=== PATIENT | female | born 1950 | race Caucasian/White ===

== ENCOUNTER 2017-12-30 12:56 | Emergency (ER) | payer OTHER ==
[2017-12-30] MEDS ORDERED: BUPIVACAINE 0.5% PF 10 ML VIAL ONE (14:48)
[2017-12-30] MEDS ORDERED: LIDOCAINE 1% MPF 2 ML AMPULE ONE (14:48)
--- NOTE | 2017-12-30 15:13 | ER ---
Nurse's Notes [facility] Name: Shree Rothman Age: 67 yrs Sex: Female : 1950 Arrival Date: 12/30/2017 Time: 12:59 Bed 6 Private MD: Ramon Case Diagnosis: Cutaneous abscess of hand- - left thumb Presentation: 12/30 13:04 Presenting complaint: Patient states: Left thumb swelling, developed a blister on the sg tip of the thumb under the thumbnail, is blackened that is getting larger. Transition of care: patient was not received from another setting of care. Onset of symptoms was December 18, 2017. Risk Assessment: Do you want to hurt yourself or someone else? Patient reports no desire to harm self or others. Initial Sepsis Screen: Does the patient meet any 2 criteria? No. Patient's initial sepsis screen is negative. Does the patient have a suspected source of infection? Yes: Skin breakdown/wound. Care prior to arrival: None. 13:04 Method Of Arrival: Ambulatory sg 13:04 Acuity: DANYEL 3 sg Historical: - Allergies: 13:13 No Known Allergies; sg - PMHx: 13:13 chrons; sg - PSHx: 13:13 Appendectomy; sg - Immunization history:: Adult Immunizations up to date. - Social history:: Smoking status: Patient/guardian denies using tobacco. - Ebola Screening: : Patient negative for fever greater than or equal to 101.5 degrees Fahrenheit, and additional compatible Ebola Virus Disease symptoms Patient denies exposure to infectious person Patient denies travel to an Ebola-affected area in the 21 days before illness onset No symptoms or risks identified at this time. Screenin:49 Abuse screen: Denies threats or abuse. Nutritional screening: No deficits noted. la1 Tuberculosis screening: No symptoms or risk factors identified. Fall Risk None identified. Assessment: 13:47 General: Appears in no apparent distress. Behavior is calm, cooperative. Pain: la1 Complains of pain in left thumb and palmar aspect of distal phalanx of left thumb. Neuro: Level of Consciousness is awake, alert, obeys commands, Oriented to person, place, time, situation. Cardiovascular: Capillary refill < 3 seconds Patient's skin is warm and dry. Respiratory: Airway is patent Trachea midline Respiratory effort is even, unlabored, Respiratory pattern is regular, symmetrical, Breath sounds are clear bilaterally. GI: No signs and/or symptoms were reported involving the gastrointestinal system. : No signs and/or symptoms were reported regarding the genitourinary system. Derm: redness noted around base of left thumb nail, tip of left thumb past fingernail appears dark red/brown. Vital Signs: 13:04 BP 130 / 63; Pulse 86; Resp 17; Temp 97.7; Pulse Ox 100% on R/A; Weight 58.97 kg; sg Height 5 ft. 1 in. (154.94 cm); Pain 6/10; 15:21 BP 140 / 74; Pulse 81; Resp 16; Pulse Ox 98% on R/A; la1 13:04 Body Mass Index 24.56 (58.97 kg, 154.94 cm) ED Course: 12:59 Patient arrived in ED. mr 13:00 Ramon Case MD is Private Physician. mr 13:05 Triage completed. sg 13:05 Arm band placed on. sg 13:35 Eder Black RN is Primary Nurse. la1 13:39 Merline Pal NP is PHCP. rh1 13:39 Win Kemp MD is Attending Physician. rh1 13:49 Call light in reach. la1 15:11 Ramon aCse MD is Referral Physician. rh1 15:12 Juan Grubbs MD is Referral Physician. rh1 15:21 No provider procedures requiring assistance completed. Patient did not have IV access la1 during this emergency room visit. Administered Medications: 14:46 Drug: Lidocaine (1 %) 1 vials Volume: 20 ml; Route: Infiltration; la1 14:46 Drug: Marcaine (0.25 %) 1 vials Route: Infiltration; la1 15:10 Drug: Ancef 1 grams Route: IM; Site: right gluteus; la1 15:22 Follow up: Response: No adverse reaction la1 Outcome: 15:12 Discharge ordered by . rh1 15:21 Discharged to home ambulatory. la1 15:21 Condition: stable 15:21 Discharge instructions given to patient, Instructed on discharge instructions, follow up and referral plans. medication usage, Demonstrated understanding of instructions, follow-up care, medications, Prescriptions given X 1. 15:26 Patient left the ED. la1 Signatures: Washington Jain RN RN Karl Bettina mr Ivorykanchan, Eder, RN RN la1 Demarco, Merline, SENIOR BOILER OPERATOR SENIOR BOILER OPERATOR 1
--- NOTE | 2017-12-30 15:13 | EDPHYS ---
Physician Documentation [facility] Name: Shree Rothman Age: 67 yrs Sex: Female : 1950 Arrival Date: 12/30/2017 Time: 12:59 Bed 6 Private MD: Ramon Case ED Physician Win Kemp HPI: 12/30 13:58 This 67 yrs old Female presents to ER via Ambulatory with complaints of rh1 Infected thumb. 13:58 The patient or guardian reports pain, swelling. The complaints affect the palmar aspect rh1 of distal phalanx of left thumb. Context: The problem was sustained at home, resulted from an unknown cause. Onset: The symptoms/episode began/occurred 1 week(s) ago. Modifying factors: The symptoms are alleviated by nothing, the symptoms are aggravated by nothing. Associated signs and symptoms: Pertinent negatives: cyanosis distally, decreased sensation distally, fever, numbness distally, tingling distally. Severity of symptoms: At their worst the symptoms were moderate, in the emergency department the symptoms are unchanged. The patient has not experienced similar symptoms in the past. The patient has been recently seen by a physician: the patient's primary care provider. She began with pinpoint white spot at skin under left thumbnail 1 week ago, that has gradually increased in size. Today with increased redness at the base of the nail. She has been taking keflex for the past 1 week. Denies any paresthesias, no fever.. Historical: - Allergies: 13:13 No Known Allergies; sg - PMHx: 13:13 chrons; sg - PSHx: 13:13 Appendectomy; sg - Immunization history:: Adult Immunizations up to date. - Social history:: Smoking status: Patient/guardian denies using tobacco. - Ebola Screening: : Patient negative for fever greater than or equal to 101.5 degrees Fahrenheit, and additional compatible Ebola Virus Disease symptoms Patient denies exposure to infectious person Patient denies travel to an Ebola-affected area in the 21 days before illness onset No symptoms or risks identified at this time. ROS: 13:58 Constitutional: Negative for fever rh1 13:58 MS/extremity: Negative for decreased range of motion. 13:58 Skin: Positive for abscess, cellulitis. 13:58 Neuro: Negative for numbness, tingling. 13:58 All other systems are negative. Exam: 13:58 Constitutional: This is a well developed, well nourished patient who is awake, alert, rh1 and in no acute distress. Head/Face: Normocephalic, atraumatic. Cardiovascular: Regular rate and rhythm with a normal S1 and S2. No gallops, murmurs, or rubs. No JVD. No pulse deficits. Respiratory: Lungs have equal breath sounds bilaterally, clear to auscultation. No rales, rhonchi or wheezes noted. No increased work of breathing. Abdomen/GI: Soft, non-tender, with normal bowel sounds. No distension. No guarding or rebound. No evidence of tenderness throughout. MS/ Extremity: Pulses equal, no cyanosis. Neurovascular intact. Full, normal range of motion. 13:58 Skin: abscess, that is small, approximately 1 cm(s), of the palmar aspect of distal phalanx of left thumb, with fluctuance, that is mild, with pointing, that is subtle, cellulitis, that is mild. 13:58 Skin: cap refill at left thumb <2 seconds. 13:58 Neuro: Orientation: is normal, to person, place \T\ time. Mentation: is normal, lucid, able to follow commands, Motor: is normal, moves all fours, strength is 5/5 in all extremities, full ROM at left thumb, Sensation: is normal, no obvious gross deficits, numbness, is not appreciated, tingling, is not appreciated, Gait: is steady, at a normal pace, without difficulty. Vital Signs: 13:04 BP 130 / 63; Pulse 86; Resp 17; Temp 97.7; Pulse Ox 100% on R/A; Weight 58.97 kg; sg Height 5 ft. 1 in. (154.94 cm); Pain 6/10; 15:21 BP 140 / 74; Pulse 81; Resp 16; Pulse Ox 98% on R/A; la1 13:04 Body Mass Index 24.56 (58.97 kg, 154.94 cm) Procedures: 15:10 I \T\ D: Incision and drainage was performed for an abscess of the left palmar aspect of rh1 distal phalanx of left thumb Prepped with Betadine, Anesthetized with 2 ml's 1% Lidocaine. marcaine. Incised with #11 blade. Drained moderate amount purulent fluid. Packed with sterile gauze, Dressing: non-Adherent dressing, the patient tolerated the procedure well. MDM: 13:58 Patient medically screened. rh1 15:10 Data reviewed: vital signs, nurses notes, and as a result, I will discharge patient. rh1 Data interpreted: Pulse oximetry: on room air is 100 %. Interpretation: normal. Counseling: I had a detailed discussion with the patient and/or guardian regarding: the historical points, exam findings, and any diagnostic results supporting the discharge/admit diagnosis, the need for outpatient follow up, a hand specialist, to return to the emergency department if symptoms worsen or persist or if there are any questions or concerns that arise at home. Special discussion: Based on the history and exam findings, there is no indication for further emergent testing or inpatient evaluation. I discussed with the patient/guardian the need to see the hand specialist for further evaluation of the symptoms. 12/30 14:21 Order name: Incision \T\ Drainage Setup; Complete Time: 14:46 rh1 Administered Medications: 14:46 Drug: Lidocaine (1 %) 1 vials Volume: 20 ml; Route: Infiltration; la1 14:46 Drug: Marcaine (0.25 %) 1 vials Route: Infiltration; la1 15:10 Drug: Ancef 1 grams Route: IM; Site: right gluteus; la1 15:22 Follow up: Response: No adverse reaction la1 Disposition: 18:35 Co-signature as Attending Physician, Win Kemp MD. gs Disposition: 12/30/17 15:12 Discharged to Home. Impression: Cutaneous abscess of hand - - left thumb. - Condition is Stable. - Discharge Instructions: Incision and Drainage. - Prescriptions for Bactrim DS 800- 160 mg Oral Tablet - take 1 tablet by ORAL route every 12 hours for 10 days; 20 tablet. - Medication Reconciliation Form, Thank You Letter, Antibiotic Education, Prescription Opioid Use form. - Follow up: Ramon Case MD; When: 1 - 2 days; Reason: Recheck today's complaints, Continuance of care, Re-evaluation by your physician. Follow up: Juan Grubbs MD; When: 1 - 2 days; Reason: Further diagnostic work-up, Recheck today's complaints, Continuance of care. Follow up: Emergency Department; When: As needed; Reason: Fever > 102 F, If symptoms return, Trouble breathing, Worsening of condition. - Problem is new. - Symptoms have improved. Signatures: Washington Jain RN RN sg Eder Black RN RN la1 Merline Pal NP CUSTODIAL SUPERVISOR rh1 Win Kemp MD MD gs Corrections: (The following items were deleted from the chart) 15:26 15:12 12/30/2017 15:12 Discharged to Home. Impression: Cutaneous abscess of hand - - la1 left thumb. Condition is Stable. Forms are Medication Reconciliation Form, Thank You Letter, Antibiotic Education, Prescription Opioid Use. Follow up: Ramon Case; When: 1 - 2 days; Reason: Recheck today's complaints, Continuance of care, Re-evaluation by your physician. Follow up: Juan Grubbs; When: 1 - 2 days; Reason: Further diagnostic work-up, Recheck today's complaints, Continuance of care. Follow up: Emergency Department; When: As needed; Reason: Fever > 102 F, If symptoms return, Trouble breathing, Worsening of condition. Problem is new. Symptoms have improved. rh1
[2017-12-30] MEDS ORDERED: CEFAZOLIN SODIUM 1 GM/VIAL ONE (15:15)
[2017-12-30] MEDS ORDERED: WATER FOR INJ,STERILE 10 ML ONE (15:15)
[2017-12-30 15:46] VITALS: TEMP 97.7
[2017-12-30 15:47] VITALS: BP 140/74; O2SAT 98
== END 2017-12-30 15:26 | disposition home or self-care (01) ==
LOC: ER 12:56
PROC: 0H9GXZZ Drainage of Left Hand Skin, External Approach (ICD-10-PCS; principal; 2017-12-30)
DX: L02.512 Cutaneous abscess of left hand (principal)
CPT/HCPCS: 26010; 96372; 99283; J0690; J2001

== ENCOUNTER 2018-01-03 09:31 | Day surgery (SDC) | payer OTHER ==
[2018-01-03] MEDS ORDERED: Ringers Lactate 1,000 ML IV ONE (10:05)
[2018-01-03] MEDS ORDERED: CEFAZOLIN/SWI 1gm 1 GM/10 ML SYR ONE (10:05)
[2018-01-03 10:11] VITALS: O2SAT 100
[2018-01-03 10:12] LABS: Specific Gravity 1.025 (1.005-1.030)
[2018-01-03 10:17] LABS: Absolute Lymphocytes (CBC) 1.7 K/uL (0.7-4.9); Absolute Monocytes 0.4 K/uL (0.1-1.3); Basophils % 0.8 % (0-1.3); Lymphocytes % 32.4 % (15.3-44.8); MCH 30.1 pg (27.0-35.0); MCV 89.7 fL (80-100); MPV 8.2 fL (7.6-11.3); Monocytes % 7.3 % (3.3-12.3); RBC Red Blood Cell Count 4.12 M/uL (3.86-4.86)
--- NOTE | 2018-01-03 10:27 | RAD REPORT ---
EXAM DESCRIPTION: RAD - Chest Pa And Lat (2 Views) - 01/03/2018 10:20 am CLINICAL HISTORY: PREOP RM 5 SDS Chest pain. COMPARISON: CHEST PA AND LAT 2 VIEW dated 02/26/2012; CHEST PA AND LAT 2 VIEW dated 07/27/2010; CHEST PA AND LAT 2 VIEW dated 07/11/2010; CHEST SINGLE VIEW dated 07/17/2008 FINDINGS: The lungs are clear. The heart is normal in size. No displaced fractures. IMPRESSION: No acute or concerning finding suspected.
--- NOTE | 2018-01-03 10:28 | RAD REPORT ---
EXAM DESCRIPTION: RAD - Hand Left 2 View - 01/03/2018 10:19 am CLINICAL HISTORY: Hand pain COMPARISON: No comparisons FINDINGS: Hardware is in place involving the distal radius and ulna. Radiocarpal arthritic changes a re noted. 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 Mild arthritic changes involve the first carpometacarpal joint. No fracture or dislocation. No aggressive marrow lesion.
[2018-01-03] MEDS ORDERED: PROPOFOL 200 MG/20 ML VIAL IV ONE ×2 (11:03→11:48)
[2018-01-03] MEDS ORDERED: FENTANYL CITR 100 MCG/2 ML ONE (11:03)
[2018-01-03] MEDS ORDERED: LIDOCAINE 2% MPF 5 ML VIAL ONE (11:04)
[2018-01-03] MEDS ORDERED: MIDAZOLAM HCL 2 MG/2 ML INJ ONE (11:07)
[2018-01-03 11:08] LABS: Urine Appearance CLOUDY; Urine Blood NEGATIVE (NEG); Urine Color YELLOW; Urine Glucose NEGATIVE (NEG); Urine Protein NEGATIVE (NEG); Urine Specific Gravity 1.025 (1.005-1.030); Urine Urobilinogen 0.2 mg/dL (0.2-1.0); Urine pH 5.5 (5.0-7.0)
[2018-01-03 11:10] LABS: Urine Microscopic Reflex ORDER UMIC
[2018-01-03] MEDS ORDERED: NA CIT/CITRIC AC 30 ML ORAL UDC ONE (11:20)
[2018-01-03 11:33] LABS: Urine Bacteria 20-50 /HPF (<20); Urine Bilirubin NEGATIVE (NEG); Urine Culture Reflex Order REFLEXED; Urine RBC <5 /HPF (NONE SEEN)
[2018-01-03 13:12] VITALS: BP 129/57; TEMP 97.3
--- NOTE | 2018-01-03 16:46 | EKG ---
Test Date: 2018-01-03 Test Time: 09:58:16 Packaging Operator: IVY MEASUREMENT RESULTS: Intervals: Rate: 68 OR: 176 QRSD: 70 QT: 392 QTc: 416 [place]: P: 70 OR: 176 QRS: 27 T: 32 INTERPRETIVE STATEMENTS: Sinus rhythm with occasional premature ventricular complexes Otherwise normal ECG Compared to ECG 08/04/2014 16:52:03 Ventricular premature complex(es) now present Electronically Signed On 01-03-18 16:44:33 CDT by Adilson Lacey
--- NOTE | 2018-01-03 23:29 | OP ---
Date of Procedure: 01/03/2018 Surgeon: Juan Grubbs MD Records Management Analyst: Kennedy. Preoperative Diagnosis: Fungal infection of the left thumb nail. Postoperative Diagnosis: Fungal infection of the left thumb nail. Procedure Performed: Debridement of nail plate, debridement of skin. Anesthesia: General. Description Of Procedure: After satisfactory induction of general anesthesia, a digit block was perf ormed using , 10 cc. Then, the hand was prepped with Betadine scrub, Betadine paint, dry s terile drapes were placed in the usual manner. The hand was placed on the [place] table. A digital tourniquet was applied on the gloves. The nail plate was removed with a periosteal elevator and was sent in a sterile container for pathology for cultures. The skin was debrided and sent in a separate container. Tourniquet was removed. The wound was irrigated with dilute Betadine solution and dress ed with Xeroform, 2-inch Jomar. The patient tolerated the procedure well and returned to recovery. LORETA/NELLA Voice ID: [id number] Report ID: [id number]
== END 2018-01-03 12:23 | disposition home or self-care (01) ==
LOC: OR 09:31
PROVIDERS: ATTEND Specialist
PROC: 0HDGXZZ Extraction of Left Hand Skin, External Approach (ICD-10-PCS; 2018-01-03)
PROC: 0HDQXZZ Extraction of Finger Nail, External Approach (ICD-10-PCS; principal; 2018-01-03 11:00)
DX: B35.1 Tinea unguium (principal); I10 Essential (primary) hypertension; K21.9 Gastro-esophageal reflux disease without esophagitis
CPT/HCPCS: 11730; 36415; 71046; 73120; 81025; 85025; 87077 ×2; 87086; 87088; 87102; 87186 ×2; 93005; 97597; J0690; J2250; J3010; 81003; 81015

== ENCOUNTER 2019-06-11 06:09 | Day surgery (SDC) | payer OTHER ==
[2019-06-04 17:06] LABS: Absolute Lymphocytes (CBC) 1.9 K/uL (0.7-4.9); Basophils % 0.9 % (0-1.3); Hematocrit 37.2 % (36.0-45.0); Lymphocytes % 38.3 % (15.3-44.8); MPV 8.2 fL (7.6-11.3); RBC Red Blood Cell Count 4.26 M/uL (3.86-4.86)
--- NOTE | 2019-06-04 17:20 | RAD REPORT ---
EXAM DESCRIPTION: Khadrat Pa And Lat (2 Views)06/04/2019 5:04 pm CLINICAL HISTORY: Cough COMPARISON: 2018 FINDINGS: 10 millimeter nodule mid to lower left lung is equivocally calcified. Main lungs appear clear. Heart is normal size delete IMPRESSION: 10 millimeter left lung nodule. Unenhanced CT chest recommended
[2019-06-04 17:24] LABS: Potassium 4.1 mmol/L (3.5-5.1)
--- NOTE | 2019-06-05 11:40 | EKG ---
Test Date: 2019-06-04 Test Time: 16:39:40 Straight Line Press Setter: LETY MEASUREMENT RESULTS: Intervals: Rate: 55 DE: 192 QRSD: 74 QT: 422 QTc: 403 [place]: P: 62 DE: 192 QRS: 42 T: 43 INTERPRETIVE STATEMENTS: Sinus bradycardia Otherwise normal ECG Compared to ECG 01/03/2018 09:58:16 Sinus rhythm no longer present Ventricular premature complex(es) no longer present Electronically Signed On 06-05-19 11:37:02 SPEECH THERAPY TEACHER by Adilson Lacey
[2019-06-11] MEDS ORDERED: FENTANYL CITR 100 MCG/2 ML ONE (06:29)
[2019-06-11] MEDS ORDERED: NS 0.9% VIAL 20 ML ONE (06:29)
[2019-06-11] MEDS ORDERED: LIDOCAINE 2% MPF 5 ML VIAL ONE ×2 (06:29→07:32)
[2019-06-11] MEDS ORDERED: MIDAZOLAM HCL 2 MG/2 ML INJ ONE (06:30)
[2019-06-11] MEDS ORDERED: ROPLVACAINE HCL 40 ML ONE (06:30)
[2019-06-11] MEDS ORDERED: CEFAZOLIN/SWI 1gm 1 GM/10 ML SYR ONE (06:33)
[2019-06-11] MEDS ORDERED: Ringers Lactate 1,000 ML IV ONE ×2 (06:33→09:08)
[2019-06-11] MEDS ORDERED: BUPIVACA 0.5%/EPI 0.0005%/PF 30 ML VIAL ONE (07:12)
[2019-06-11] MEDS ORDERED: ROCURONIUM 50 MG/5 ML VIAL IV ONE (07:32)
[2019-06-11] MEDS ORDERED: propofoL 200 MG/20 ML VIAL IV ONE (07:32)
[2019-06-11] MEDS ORDERED: ONDANSETRON 4 MG/2 ML VIAL ONE (08:07)
[2019-06-11] MEDS ORDERED: dexAMETHasone 10 MG/ML VIAL ONE (08:07)
[2019-06-11] MEDS ORDERED: EPHEDRINE SULF 50 MG/ML VIAL ONE (08:21)
[2019-06-11] MEDS ORDERED: KETAMINE HCL 500 MG/5 ML VIAL ONE (08:30)
[2019-06-11] MEDS ORDERED: NS 0.9% VIAL 10 ML ONE ×2 (08:36→09:44)
[2019-06-11] MEDS ORDERED: Phenylephrine HCl 10 MG/ML 1 ML VIAL ONE (08:36)
[2019-06-11] MEDS ORDERED: ALBUMIN HUM 5% 500 ML IV ONE (09:16)
--- NOTE | 2019-06-11 11:39 | P.BOP ---
Preoperative diagnosis: left shoulder osteoarthritis Postoperative diagnosis: same Primary procedure: left total shoulder arthroplasty Guard Captain: NONE,NONE Estimated blood loss: 100 cc Specimen: left humeral head Findings: see dictation Anesthesia: General Complications: None Implants: Biomet Riccardo 10 mm mini stem, small glenoid, 46 x 21 mm Head Fluids & blood products: per anesthesia record Transferred to: Recovery Room Condition: Good
[2019-06-11] MEDS ORDERED: DOCUSATE NA 100 MG CAP PO PRN (11:40)
[2019-06-11] MEDS ORDERED: MORPHINE 4 MG/ML SYR IV PRN (11:40)
[2019-06-11] MEDS: CEFAZOLIN/SWI 1gm 1 GM/10 ML SYR IV SCH ×3 (12:00→19:19)
[2019-06-11 12:28] LABS: Hematocrit 34.6 % (36.0-45.0)
[2019-06-11 12:48] VITALS: O2SAT 96
--- NOTE | 2019-06-11 12:51 | RAD REPORT ---
EXAM DESCRIPTION: RAD - Shoulder Left 2 View - 06/11/2019 12:44 pm CLINICAL HISTORY: post op Pain and swelling left shoulder COMPARISON: Shoulder Left 2 View dated 02/17/2013; Shoulder Left Wo Con dated 05/23/2019 FINDINGS: Left total shoulder arthroplasty is identified. Small amount of air is seen in the joint s pace. Skin lico are noted. No postoperative unexpected finding.
--- NOTE | 2019-06-11 14:06 | P.PN ---
Subjective Date of Service: 06/11/19 Chief Complaint: s/p left total shoulder pain controlled Physical Examination - Vital Signs Temperature: 97.8 F Blood Pressure: 145/65 Pulse: 84 Respirations: 18 Pulse Ox (%): 96 - Physical Exam General: Alert, In no apparent distress Musculoskeletal: Other (LUE: +EPL/FPL/intrinsics; bcr in all digits) - Studies Laboratory Data (last 24 hrs) 06/11/19 12:15: Hgb 11.3 L, Hct 34.6 L Assessment And Plan - Plan Shree is a 69 yo female s/p left total shoulder arthroplasty -OOB with PT today -pain control -d/c in AM
[2019-06-11] MEDS ORDERED: ONDANSETRON 4 MG/2 ML VIAL IV PRN (15:10)
[2019-06-11 16:55] VITALS: BMI 23.0
[2019-06-11] MEDS ORDERED: GABAPENTIN 300 MG CAP PO SCH (21:00)
[2019-06-11] MEDS ORDERED: TRAZODONE 50 MG TABLET PO SCH (21:00)
[2019-06-11] MEDS ORDERED: TIZANIDINE 4 MG TABLET PO SCH (21:00)
[2019-06-11] MEDS: HYDROCODONE/APAP 7.5/325 MG TAB PO PRN (22:26)
[2019-06-12] MEDS: CEFAZOLIN/SWI 1gm 1 GM/10 ML SYR IV SCH (00:12)
[2019-06-12] MEDS: TRAMADOL HCL 50 MG TAB PO PRN ×2 (00:12→06:28)
[2019-06-12] MEDS: HYDROCODONE/APAP 7.5/325 MG TAB PO PRN (02:20)
--- NOTE | 2019-06-12 05:15 | OP ---
Date of Procedure: 06/11/2019 Surgeon: Vivek Rojas MD Preoperative Diagnosis: Left shoulder osteoarthritis. Postoperative Diagnosis: Left shoulder osteoarthritis. Procedure Performed: Left total shoulder arthroplasty. Anesthesia: General endotracheal. Fluids: Per Anesthesia record. Estimated Blood Loss: 100 mL. Specimens: Left humeral head. Complications: None. Implants: Biomet Riccardo 10 mm mini stem, a small glenoid, and a 46 x 21 mm head. Indication For Procedure: Shree is a 69-year-old female who presented to my clinic with signs, sympt oms and x-ray findings consistent with severe left shoulder osteoarthritis. Patient failed conservat dallin treatment measures including home exercise program as well as corticosteroid injections. Her catrachito n affected her activities of daily living. I discussed with the patient risks and benefits associate d with operative and nonoperative treatment. She expressed understanding and elected to proceed with operative treatment. Description Of Procedure: After informed consent was obtained, the patient was identified in the pre operative holding area. The left upper extremity was marked. The patient was then taken back to the PACU and underwent an interscalene block to her left upper extremity performed by Anesthesia. She w as then transferred to the operating table in a supine fashion and placed under general endotracheal anesthesia. She was placed in the beach chair position with her extremities well padded. The left u pper extremity was then prepped and draped in the usual sterile fashion. A time-out was initiated. The correct patient and procedure were confirmed and identified. The patient did receive preoperativ e prophylactic antibiotics. Ativan was placed over the left shoulder. Approximately a 12 cm incisio n was made to the left shoulder using a deltopectoral approach, centered just proximal to the medial aspect of the arm. Dissection was then taken to the fascia. The cephalic vein was identified and wa s marked in the interval. The cephalic vein was gently retracted medially. A Kolbel retractor was t hen placed, protecting the deltoid as well as pec, retracting the pec medially and the deltoid latera lly. It was placed just deep to the coracoid and the conjoined tendon protecting the musculocutaneou s nerve. The axillary nerve was also identified and protected throughout the case. The subscapulari s was identified. At the base of the subscapularis, 3 blood vessels were tied and cauterized using B ovie electrocautery. Just medial to the lesser tuberosity, the subscapularis was transected. Medial aspect to the tendon was then tagged using #5 Ethibond sutures from superior to inferior. The subsc apularis was then gently retracted medially. The capsule was then released off the proximal humerus to the level of the humeral neck near the 6 o'clock position. A large osteophyte of the undersurface of the humeral neck was then removed using an osteotome and rongeurs. A Hohmann retractor was then placed gently behind the humeral head and the humeral head was then dislocated by extending the shoul agustin as well as externally rotating it. The rotator cuff was found to be intact. Entry reamer was th en placed down the proximal humerus in a sequential fashion, a size 10 mm reamer was placed. Once it was placed in a proper depth and there was good overall fit, the cutting guide was then placed on th e reamer where 30 degrees of retroversion was marked and the cutting jig was placed over the reamer a nd pinned into position on the humeral head. The cut was made just 1 mm superior to the rotator cuff insertion. Once pinned into position and a proper version was marked, a saw was then used to cut th e humeral head. The cut humeral head segment was sent to the back table and measured and a size 46 x 21 mm head was selected. The proximal humerus was then broached in 1 mm increments from a size 7 mm broach to a size 10 mm broach with good overall fit. A cap was then placed in the proximal humerus and then gently retracted. Batman and Gene retractors were then placed and a Hohmann retractor was placed in the superior aspect of the glenoid. Labrum was then excised and there was a capsule releas e anterior, posteriorly, inferiorly and superiorly for to adequate exposure to the glenoid. Once the glenoid was exposed properly, a pin was placed in the central position. The glenoid surface was the n reamed to debride off the cartilage surface to near-bleeding bony bed. Central pec was then was th en drilled over the central guide pin and the glenoid was prepared. The wound was then irrigated tho roughly with normal saline. A small glenoid was selected. The cement was prepared on the back table and placed within the 3 peripheral pecs and the central pec was left clean given the porous coating of the glenoid implant. Final glenoid implant was then placed and held into position until the cemen t was completely hard. The final size 10 mm mini stem was then placed up to the proximal humerus. I t was then irrigated. There was good overall fit. It was then trialed using a using a 46 x 21 mm he ad. There was good overall fit and range of motion with the selective head. A final 46 x 21 head wa s then placed and knocked into position. The shoulder was again reduced at full range of motion with good overall stability noted. The subscapularis was then repaired using #5 Ethibond sutures, which had bent prior, marked as well as reinforced with #1 Vicryl. There was good overall external rotatio n with maintenance of repair. Next, the retractors were then removed and superficial fascia was appr oximated using a 0 Vicryl, subcutaneous tissue was approximated using a 2-0 Vicryl, skin was approxim ated using lico. Sterile dressings were applied. The patient was placed in a shoulder immobilize r, awakened, and transferred to the PACU in stable condition. Postoperative Plan: She will be admitted to the hospital overnight for observation. Physical Therap y will be consulted to get the patient up and moving around. She will be discharged in the morning a fter pain is controlled. DANIEL/NELLA Voice ID: [id number] Report ID: [id number]
[2019-06-12 05:58] LABS: Absolute Lymphocytes (CBC) 1.6 K/uL (0.7-4.9); Basophils % 0.1 % (0-1.3); Hematocrit 28.7 % (36.0-45.0); Lymphocytes % 12.7 % (15.3-44.8); MPV 8.2 fL (7.6-11.3); RBC Red Blood Cell Count 3.28 M/uL (3.86-4.86)
[2019-06-12 06:16] LABS: Potassium 3.8 mmol/L (3.5-5.1)
--- NOTE | 2019-06-12 07:43 | P.PN ---
Subjective Date of Service: 06/12/19 Chief Complaint: s/p left total shoulder Subjective: Ambulating pain controlled; ambulated with PT yesterday Physical Examination - Vital Signs Temperature: 97.9 F Blood Pressure: 131/62 Pulse: 80 Respirations: 18 Pulse Ox (%): 96 - Physical Exam General: Alert, In no apparent distress Musculoskeletal: Other (LUE: dressing c/d/i; +EPL/FPL/instrinsics; sensation grossly intact distally) - Studies Laboratory Data (last 24 hrs) 06/12/19 05:43: Sodium 139, Potassium 3.8, BUN 11, Creatinine 0.89, Glucose 104 06/12/19 05:43: WBC 12.6 H D, Hgb 9.5 L, Hct 28.7 L D, Plt Count 192 06/11/19 12:15: Hgb 11.3 L, Hct 34.6 L Assessment And Plan - Plan Shree is a 69 yo female s/p left total shoulder arthroplasty POD #1 -pain controlled -d/c home today
[2019-06-12 08:53] VITALS: BP 157/72; TEMP 97.3
[2019-06-12] MEDS ORDERED: ESCITALOPRAM 20 MG TAB PO SCH (09:00)
[2019-06-12] MEDS ORDERED: HOME MED 1 EA UNK (Gabapentin [Gralise] 300 MG) PO SCH (09:00)
[2019-06-12] MEDS ORDERED: PANTOPRAZOLE 40MG TABLET PO SCH (09:00)
== END 2019-06-12 09:16 | disposition home or self-care (01) ==
LOC: PRE 06:09 → 2ND 11:41 → PRE 06-12 09:16
PROVIDERS: ATTEND Orthopaedic Surgery Sports Medicine
PROC: 0RRK0JZ Replacement of Left Shoulder Joint with Synthetic Substitute, Open Approach (ICD-10-PCS; principal; 2019-06-11 07:30)
DX: M19.012 Primary osteoarthritis, left shoulder (principal); M51.36 Other intervertebral disc degeneration, lumbar region; F41.8 Other specified anxiety disorders; I10 Essential (primary) hypertension; K21.9 Gastro-esophageal reflux disease without esophagitis; Z79.891 Long term (current) use of opiate analgesic; Z79.899 Other long term (current) drug therapy
CPT/HCPCS: 36415; 71046; 80048; 85014; 85018; 85025; 85610; 85730; 88304; 88305; 88311; 93005; 97162; J0690; J1100; J2250; J2370; J2405; J2704; J2795; J3010; J7120; P9045

== ENCOUNTER 2020-02-06 19:49 | Emergency (ER) | payer OTHER ==
--- OUTSIDE RECORDS SUMMARY | 2020-02-06 19:51 | XMS REPORT | Continuity of Care Document ---
:1950 Author Organization [facility] t Address [address] [place] [address] Care Team Providers Name Role Phone Unavailable Unavailable Unavailable Problems This patient has no known problems. Allergies, Adverse Reactions, Alerts This patient has no known allergies or adverse reactions. Medications Ordered Filled Start Stop Current Ordering Indication Dosage Frequency Signature Comments Components Source Medication Medication Date Date Medication? Clinician (SIG) Name Name Nexium Nexium Yes Vivek [address] [facility] Tizanidine Tizanidine Yes Vivek 1-[address] [facility] HCl HCl [facility] tablets [facility] Hydrocodone Hydrocodone Yes Vivek [address] [facility] -Acetaminop -Acetaminop [facility] as [facility] Fluorouraci Fluorouraci Yes Vivek APPLY TO [facility] l DAILY FOR Outpati TWO WEEKS. ent Clinics Trazodone Trazodone Yes Vivek 1-[address] HCl HCl [facility] tablets as [facility] Lexapro Lexapro Yes Vivek [address] [facility] Ondansetron Ondansetron Yes Vivek [address] [facility] HCl HCl [facility] Diphenoxyla Diphenoxyla Yes Vivek [address] [facility] te-Atropine te-Atropine [facility] as [facility] Gabapentin Gabapentin Yes Vivek 1-[address] [facility] [address] [facility] capsules [facility] Procedures This patient has no known procedures. Encounters Start End Encounter Admission Attending Care Care Encounter Source Date/Time Date/Time Type Type Clinicians Facility Department ID 2020-01-28 2020-01-28 Outpatient [facility] [id number] [facility] 06[facility]45:00 06:45:00 2019-12-25 2019-12-25 [id number] 2019-12-25 2019-12-25 [id number] 2019-12-16 2019-12-16 [facility] [id number] [facility] 2019-12-11 2019-12-11 [facility] [id number] [facility] 10[facility]30[facility]00 10:30[facility]00 [facility] 2019-12-09 2019-12-09 [facility] [id number] 10[facility]20[facility]00 10:20:00 [facility] [employer] [facility] [employer] [facility] 2019-11-24 2019-11-24 [facility] [id number] [address] 14[facility]25:00 14:25:00 [place] [facility] 2019-11-17 2019-11-17 [facility] [id number] [address] 15:34:00 15:34:00 [facility] [place] [facility] [employer] [facility] Clinics 2019-10-31 2019-10-31 [facility] [id number] 11[facility]29:00 11:29:00 [place] [facility] 2019-09-11 2019-09-11 [facility] [id number] [address] 11:00:00 11:00:00 [facility] 2019-09-05 2019-09-05 [facility] [id number] 11:15:00 11:15:00 [facility] [place] 2019-09-05 2019-09-05 [facility] [id number] [address] 11:00[facility]00 11:00:00 [facility] [place] 2019-07-30 2019-07-30 [facility] [id number] [address] 11:00:00 11:00:00 t [facility] 2019-07-25 2019-07-25 [facility] [id number] 10:09:00 10:09:00 t [facility] 2019-07-03 2019-07-03 [facility] [id number] 13:30:00 13:30:00 t [facility] 2019-06-26 2019-06-26 [facility] [id number] [address] 10:09:00 10:09:00 t [facility] 2019-06-24 2019-06-24 [facility] [id number] 11:00:00 11:00:00 [facility] [place] 2019-06-24 2019-06-24 [facility] [id number] 07:40:00 07:40:00 t [facility] Results This patient has no known results.
--- OUTSIDE RECORDS SUMMARY | 2020-02-06 19:52 | XMS REPORT ---
:1950 Author Organization [employer] Care Team Providers Name Role Phone Doug Wolf Provider Role Unavailable Allergies No Known Allergies Problems Problem Type Condition Code Onset Dates Condition Statu s Problem Depression with anxiety F41.8 Acti ve Problem History of seizure Z87.898 Active Problem Gastroesophageal reflux disease K21.9 Active without esophagitis Problem Crohn''s disease without K50.90 Act dallin complication, unspecified gastrointestinal tract location Problem DDD (degenerative disc disease), M51.36 Active lumbar Problem Essential hypertension I10 Activ e Problem Chronic pain syndrome G89.4 Active Problem Primary insomnia F51.01 Active Problem Pain, joint, shoulder, left M25.512 Active Problem 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
--- OUTSIDE RECORDS SUMMARY | 2020-02-06 19:52 | XMS REPORT ---
:1950 Author Organization [employer] Care Team Providers Name Role Phone RojasVivek Provider Role Unavailable Allergies, Adverse Reactions, Alerts Substance Reaction Event Type N.K.D.A. 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 Problem Chronic pain syndrome G89.4 Active Problem Primary insomnia F51.01 Active Assessment 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 Assessment Pain in joint of left shoulder M25.512 Active Problem DDD (degenerative disc disease), M51.36 Active lumbar Problem Essential hypertension I10 Activ e Problem Depression with anxiety F41.8 Acti ve Problem Crohn''s disease without K50.90 Act dallin complication, unspecified gastrointestinal tract location Problem Gastroesophageal reflux disease K21.9 Active without esophagitis Medications Medication Code Code Instructions Start End Status Dosage System Date Date Lexapro [facility] 03590531248 20 MG Orally Active 1 table t Once a day Fluorouracil ND 68888708015 5 % External Active AP PLY TO AFFECTED AREAS TWICE DAILY FOR TWO WEEKS. Gabapentin ND 79111470792 300 MG Orally Active 1-3 Once a day capsules as needed Diphenoxylate-At ND 69683740598 2.5-0.025 MG Active 1 tablet as ropine Orally BID PRN needed Hydrocodone-Acet ND 94110912652 10-325 MG Active 1 tablet as aminophen Orally Three needed times a day Ondansetron HCl ND 86900269591 4 MG Orally BID Acti ve 1 tablet PRIN Nausea Trazodone HCl ND 82125217362 50 MG Orally Active 1 -3 tablets Once a day as needed Tizanidine HCl ND 95170227097 4 MG Orally Active 1 -3 tablets Once a day as needed Ondansetron HCl [facility] 96161144630 4 MG Orally Active 1 tablet Once a day Nexium ND 18569804122 40 MG Once a Active 1 caps ule day Results No Known Results Summary Purpose eClinicalWorks Submission
--- OUTSIDE RECORDS SUMMARY | 2020-02-06 19:52 | XMS REPORT ---
:1950 Author Organization [employer] Care Team Providers Name Role Phone Arcelia Wolfh Provider Role Unavailable Allergies, Adverse Reactions, Alerts Substance Reaction Event Type N.K.D.A. Info Not Available Non Drug Allergy Problems Problem Type Condition Code Onset Dates Condition Statu s Assessment Nodule of left lung R91.1 Active Assessment Anemia, unspecified type D64.9 Act dallin Problem Essential hypertension I10 Activ e Assessment Chronic nausea R11.0 Active Problem Depression with anxiety F41.8 Acti ve Assessment Primary insomnia F51.01 Active Problem Gastroesophageal reflux disease K21.9 Active without esophagitis Problem Impingement syndrome of left M75.42 Active shoulder Problem History of seizure Z87.898 Active Problem Pain, joint, shoulder, left M25.512 Active Problem Chronic pain syndrome G89.4 Active Assessment DDD (degenerative disc disease), M51.36 Active lumbar Assessment 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 Problem Nodule of left lung R91.1 Active Assessment Chronic pain syndrome G89.4 Active Problem 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 Problem 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 Problem Primary insomnia F51.01 Active Problem Osteoarthritis of left glenohumeral M19.012 Active joint Assessment Essential hypertension I10 Activ e Assessment Depression with anxiety F41.8 Acti ve Assessment Gastroesophageal reflux disease K21.9 Active without esophagitis Assessment 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 Problem Crohn''s disease without K50.90 Act dallin complication, unspecified gastrointestinal tract location Problem DDD (degenerative disc disease), M51.36 Active lumbar Assessment Crohn''s disease without K50.90 Act dallin complication, unspecified gastrointestinal tract location Medications Medication Code Code Instructions Start End Status Dosage System Date Date Tizanidine HCl [facility] 08743211029 4 MG Orally Active 1 -3 tablets Once a day as needed Hydrocodone-Acet ND 53669692302 10-325 MG Active 1 tablet as aminophen Orally Three needed times a day Fluorouracil ND 26751163006 5 % External Active AP PLY TO AFFECTED AREAS TWICE DAILY FOR TWO WEEKS. Trazodone HCl [facility] 01520952051 50 MG Orally Active 1 -3 tablets Once a day as needed Lexapro [facility] 93656224493 20 MG Orally Active 1 table t Once a day Ondansetron HCl ND 52385378985 4 MG Orally BID Acti ve 1 tablet PRIN Nausea Ondansetron HCl [facility] 77535721973 4 MG Orally Active 1 tablet Once a day Diphenoxylate-At [facility] 23002111317 2.5-0.025 MG Active 1 tablet as ropine Orally BID PRN needed Gabapentin ND 97423729894 300 MG Orally Active 1-3 Once a day capsules as needed Nexium [facility] 33750686626 40 MG Once a Active 1 caps ule day Results No Known Results Summary Purpose eClinicalWorks Submission
--- OUTSIDE RECORDS SUMMARY | 2020-02-06 19:52 | XMS REPORT ---
:1950 Author Organization [facility] Address [address] [place] [address] Care Team Providers Name Role Phone Wolf Unavailable [phone] PROBLEMS Type Condition ICD9-CM [id number] Onset Condition SNOMED Code Notes Code Code Dates Status Problem DDD (degenerative M51.36 Active 65476733 disc disease), lumbar Problem Crohn''s disease K50.90 Active 96343794 without complication, unspecified gastrointestinal tract location Problem Depression with F41.8 Active 33201327 anxiety Problem Essential I10 Active 20126671 hypertension Problem Impingement M75.42 Active 028194090573363 syndrome of left shoulder Problem Secondary M19.212 Active 725081105015919 osteoarthritis of left shoulder Problem Status post Z96.612 Active 724854198 replacement of left shoulder joint Problem Nodule of left R91.1 Active 190739614 lung Problem History of seizure Z87.898 Active 094521408 Problem 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 503333135 replacement of left shoulder Problem Gastroesophageal K21.9 Active 226758701 reflux disease without esophagitis Problem Osteoarthritis of M19.012 Active 20200165226262 04 left glenohumeral joint Problem Primary insomnia F51.01 Active 8049537 Problem Chronic pain G89.4 Active 971691679 syndrome Problem Pain, joint, M25.512 Active 53117293621062136 shoulder, left ALLERGIES No Known Allergies ENCOUNTERS from 1950 to 2019-12-25 Encounter Location Date Provider Diagnosis [facility] [address], [place] [address] IMMUNIZATIONS Vaccine Route Administration Date Status LIDOCAINE HCL 10MG/ML Unknown October 01, 2018 Administer ed LIDOCAINE HCL 10MG/ML Unknown July 02, 2018 Administer ed Kenalog (Triamcinolone) IM Intramuscular Dec 25, 2019 Adminis teromar Kenalog (Triamcinolone) Unknown October 01, 2018 Administ ered Kenalog (Triamcinolone) Unknown July 02, 2018 Administ ered Kenalog (Triamcinolone) IM Intramuscular September 04, 2017 Adminis leroyomar SOCIAL HISTORY Tobacco Use: Social History Observation Description Date Details (start date - stop date) Former Smoker Sex Assigned At : Social History Observation Description Sex Assigned At Unknown PHQ9 Question Answer Notes Little interest or pleasure in doing things Several days Feeling down, depressed, or hopeless Several days Trouble falling or staying asleep or sleeping too much Sever al days Feeling tired or having little energy Several days Poor appetite or overeating Not at all Feeling bad about yourself, or that you are a failure, or No t at all have let yourself or your family down Trouble concentrating on things, such as reading the Not at all newspaper or watching television Moving or speaking so slowly that other people could have No t at all noticed; or the opposite, being so fidgety or restless that you have been moving around a lot more than usual Total Score 4 Interpretation Minimal Depression Thoughts that you would be better off or of hurting Not at all yourself in some way Alcohol Screen Question Answer Notes Did you have a drink containing alcohol in the past year? No Points 0 Interpretation Negative Tobacco Use/Smoking Question Answer Notes Are you a former smoker Additional Findings: Tobacco Non-User Current non-smoker REASON FOR REFERRAL No Information VITAL SIGNS No information MEDICATIONS Medication SIG (Take, Route, Start Date End Date Status Frequency, Duration) Tizanidine HCl 4 MG 1-3 tablets as needed Active Orally Once a day Fluorouracil 5 % APPLY TO AFFECTED AREAS Not-Taking TWICE DAILY FOR TWO WEEKS. External for 30 Ondansetron HCl 4 MG 1 tablet Orally Once a day Not-Taking Gabapentin 300 MG 1-3 capsules as needed Active Orally Once a day Trazodone HCl 50 MG 1-3 tablets as needed Active Orally Once a day Ondansetron HCl 4 MG 1 tablet Orally BID PRIN Active Nausea for 30 day(s) Hydrocodone-Acetaminophen 1 tablet as needed Orally Active 10-325 MG Three times a day Lexapro 20 MG 1 tablet Orally Once a day Active Diphenoxylate-Atropine 1 tablet as needed Orally Active 2.5-0.025 MG BID PRN for 30 Nexium 40 MG 1 capsule Once a day for Act dallin 90 days PROCEDURES No Information RESULTS No Results REASON FOR VISIT Hives MEDICAL (GENERAL) HISTORY Type Description Date Medical History Gastroesophageal reflux disease without esophagitis Medical History DDD (degenerative disc disease), lumbar Medical History Crohns disease without complication, uns pecified gastrointestinal tract location Medical History Depression with anxiety Medical History History of seizure Medical History Essential hypertension Medical History Sees pain management for DDD Surgical History left thumb Surgical History oral surgery Surgical History left wrist- metal Surgical History left hip Surgical History left foot Surgical History Left total shoulder arthroplasty Goals Section No Information Health Concerns No Information MEDICAL EQUIPMENT No Information MENTAL STATUS No Information FUNCTIONAL STATUS No Information ASSESSMENTS No Information PLAN OF TREATMENT Medication Medication Name Sig Start Date Stop Date Tizanidine HCl 4 MG 1-3 tablets as needed Orally Once a day Lexapro 20 MG 1 tablet Orally Once a day Trazodone HCl 50 MG 1-3 tablets as needed Orally Once a day Hydrocodone-Acetaminophen 10-325 1 tablet as needed Orally MG Three times a day Nexium 40 MG 1 capsule Once a day for 90 days Gabapentin 300 MG 1-3 capsules as needed Orally Once a day Ondansetron HCl 4 MG 1 tablet Orally BID PRIN Nausea for 30 day(s) Next Appt Details Provider Name:Doug Wolf, 2020-03-01 0 9:15:00 AM, [address], [place], [address], Provider Name:Doug Wolf 2020-03-09 1 0:10:00 AM, [address], [place], [address], Provider Name:Vivek Rojas, 2020-06-21 1 0:30:00 AM, [address], [place], [address], Insurance Providers Payer Name Payer Address Payer Insured Patient Coverage Cover age End Phone Name Relationship to Start Date Marek e Insured [employer] [address] [address] [phone] Shree Rothman self 2019 MEDICARE PPO [place] [id number] [phone]
--- OUTSIDE RECORDS SUMMARY | 2020-02-06 19:52 | XMS REPORT ---
:1950 Author Organization [facility] Address [address] [place], [address] [place] [address] Care Team Providers Name Role Phone Wolf Unavailable [phone] PROBLEMS Type Condition ICD9-CM OLD56-DD Onset Condition SNOMED Code Notes Code Code Dates Status Problem DDD (degenerative M51.36 Active 46198734 disc disease), lumbar Problem Crohn''s disease K50.90 Active 80576864 without complication, unspecified gastrointestinal tract location Problem Depression with F41.8 Active 36487753 anxiety Problem Essential I10 Active 58955736 hypertension Problem Impingement M75.42 Active 442841891673408 syndrome of left shoulder Problem Secondary M19.212 Active 930935642047851 osteoarthritis of left shoulder Problem Status post Z96.612 Active 309354032 replacement of left shoulder joint Problem Nodule of left R91.1 Active 604562435 lung Problem History of seizure Z87.898 Active 482311055 Problem 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 275413485 replacement of left shoulder Problem Gastroesophageal K21.9 Active 523538052 reflux disease without esophagitis Problem Osteoarthritis of M19.012 Active 72733420043065 04 left glenohumeral joint Problem Primary insomnia F51.01 Active 4023279 Problem Chronic pain G89.4 Active 419990921 syndrome Problem Pain, joint, M25.512 Active 23166564740743341 shoulder, left ALLERGIES No Known Allergies ENCOUNTERS from 1950 to 2019-12-26 Encounter Location Date Provider Diagnosis [facility] [place] [address] [place] [address] [place], Doug Wolf [facility] [address] [place], R91.8 ; [place] [address] [place] [address] ; Crohn''s dis ease without complic ation, unspecified gastrointestina l tract location K50.90 ; Depression with anxiety F41.8 ; Essenti al hypertension I1 0 ; Secondary osteo arthritis of left shoulde r M19.212 ; Gastroesophag eal reflux disease without esophagitis K21 .9 ; DDD (degenerative d isc disease), lumba r M51.36 ; 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 ; Chronic pain sy ndrome G89.4 ; Primary insomnia F51.01 ; Chroni c nausea R11.0 and Anemi a, unspecified typ e D64.9 IMMUNIZATIONS Vaccine Route Administration Date Status LIDOCAINE HCL 10MG/ML Unknown October 01, 2018 Administer ed LIDOCAINE HCL 10MG/ML Unknown July 02, 2018 Administer ed Kenalog (Triamcinolone) IM Intramuscular Dec 25, 2019 Adminis tered Kenalog (Triamcinolone) Unknown October 01, 2018 Administ ered Kenalog (Triamcinolone) Unknown July 02, 2018 Administ ered Kenalog (Triamcinolone) IM Intramuscular September 04, 2017 Adminis tered SOCIAL HISTORY Tobacco Use: Social History Observation [...] REASON FOR REFERRAL No Information VITAL SIGNS Height 62.75 in Dec, Weight 127.9 lbs Dec, Temperature 97.3 degrees Fahrenheit Dec, BMI 22.83 kg/m2 Dec, Oximetry 99 % Dec, Respiratory Rate 17 /min Dec, Blood pressure systolic 124 mm Hg Dec, Blood pressure diastolic 78 mm Hg Dec, MEDICATIONS Medication SIG (Take, Route, Start Date [...] Information RESULTS No Results REASON FOR VISIT Follow-up MRI/CT + Hives - In [facility] [place] MEDICAL (GENERAL) HISTORY Type Description Date Medical [...] No Information FUNCTIONAL STATUS No Information ASSESSMENTS Encounter Date Diagnosis Notes Dec, Chronic pain syndrome (ICD-10 - G89.4) Dec, Status post replacement of left shoulder joint (ICD-10 - Z96.612) Dec, Mass of lingula of lung (ICD-10 - R91.8) Dec, Chronic nausea (ICD-10 - R11.0) Dec, Primary insomnia (ICD-10 - F51.01) Dec, Secondary osteoarthritis of left shoulde r (ICD-10 - M19.212) Dec, DDD (degenerative disc disease), lumbar (ICD-10 - M51.36) Dec, Gastroesophageal reflux disease without esophagitis (ICD-10 - K21.9) Dec, Crohn''s disease without complication, u nspecified gastrointestinal tract location (ICD-10 - K50.90) Dec, Urticaria (ICD-10 - L50.9) Dec, Anemia, unspecified type (ICD-10 - D64.9 ) Dec, Essential hypertension (ICD-10 - I10) Dec, Depression with anxiety (ICD-10 - F41.8) PLAN OF TREATMENT Medication Medication Name Sig [...] Orally BID PRIN Nausea for 30 day(s) Treatment Notes Assessment Notes Clinical Notes Mass of lingula of lung Reviewed CT of the thorax extensively with patient. Education given. Referral to pulmonary for further evaluation and management. Patient will likely need biopsy. Urticaria . Discussed differential diagnosis with patient. Education given. Etiology likely due to contrast related. Kenalog IM given in office for therapeutic reason. Instructed to use antihistamine and Pepcid. Continue using Benadryl at nighttime. Discussed side effect panel extensively. If unchanged or worsen will further evaluate. No respiratory distress. Heather supportive measures for symptomatic relief. Crohn''s disease without Managed by GI. Refills given for complication, unspecified Lomotil to use as needed for gastrointestinal tract location diarrhea. Side effect discu ssed extensively. Education given. Making dietary changes. Depression with anxiety . Managed by nurse practitioner psychiatry. Education given. Option given for patient to transition to PCP., -- Depression Education: Depression is a brain disease that makes you sad, but it is different than normal sadness. Depressed people feel down most of the time for at least 2 weeks. They also have at least one of these 2 symptoms: 1. They no longer enjoy or care about doing the things they used to like to do. 2. They feel sad, down, hopeless, or cranky most of the day, almost every day. It can also make you: lose or gain weight; sleep too much or too little; fell tired or like you have no energy; feel guilty or like you are worth nothing; forget things or feel confused; and think about or suicide. Medication and/or seeing a counselor (such as a psychiatrist, psychologist, nurse or social media senior associate) may be necessary to treat depression. Both treatments take time to work. If you ever feel like you might hurt yourself or some else, then call your doctor or call 911 or go to the ER. Essential hypertension DASH Diet discussed. Instructed to measure BP at home and bring in log to f/u appt. Instructions and logs given. Education given. , HTN Education This is a condition that puts at risk for heart attack, stroke, and kidney disease. Lifestyle modification, low fat/low salt diet, exercise, low alcohol intake and medication is utilized to help control your BP. Untreated HTN increases the strain on the heart and arteries, eventually causing organ damage.Normal BP is less than 140/90. High BP is greater than 140/90. If your BP is not controlled, call your doctor. Medication may need to be adjusted and/or added. Compliance with medication is vital. If you have chest pain, shortness of breath, severe nausea/vomiting, fatigue, and other symptoms, you will need to contact your doctor or go to the ER immediately to address. Secondary osteoarthritis of left . Managed by orthopedic. Status shoulder post replacement Gastroesophageal reflux disease . Discussed long-term impact of without esophagitis PPI usage. Education given. , We have discussed the pathophysiology of reflux disease and we discussed lifestyle modifications to avoid reflux that include elevation head of the bed, avoid alcohol, avoid caffeine, avoid maintenance, avoid tight clothing, avoid eating within 3-4 hours before bedtime, and avoiding smoking. DDD (degenerative disc disease), . Managed by pain manageme nt. lumbar Education given. MRI reviewed. Chronic pain syndrome . Managed by pain management Primary insomnia . Trial on trazodone. Education given. Discussed good sleep hygiene Anemia, unspecified type Discussed differential diagnosis with patient. Education given. Asymptomatic at this time. Encouraged to make dietary changes. We will repeat blood work. Chronic nausea . Due to Crohn's. Education given. Side effect discussed. Refills given Next Appt Details As scheduled Reason: Provider Name:Doug Luciano, 2020-03-01 0 9:15:00 AM, [address], [address], [place], [address], Provider Name:Doug Wolf, 2020-03-09 1 0:10:00 AM, [address], [address], [place], [address], Provider Name:Vivek Rojas, 2020-06-21 1 0:30:00 AM, [address], [place], [address], Insurance Providers Payer Name Payer Address Payer Insured Patient Coverage Cover age End Phone Name Relationship to Start Date Marek e Insured [employer] [address] [address] [phone] Shree Rothman self 2019 MEDICARE PPO [place] [id number]
--- OUTSIDE RECORDS SUMMARY | 2020-02-06 19:52 | XMS REPORT ---
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 [id number] 40 MG Orally Once Active 1 capsule a day Results No Known Results Summary Purpose eClinical[employer] Submission
--- OUTSIDE RECORDS SUMMARY | 2020-02-06 19:53 | XMS REPORT ---
:1950 Author Organization [facility] Address [address], [address] [place] [address] Care Team Providers Name Role Phone Wolf Unavailable [phone] PROBLEMS Type Condition ICD9-CM KDX88-OS Onset Condition SNOMED Code Notes Code Code Dates Status Problem DDD (degenerative M51.36 Active 08989590 disc disease), lumbar Problem Crohn''s disease K50.90 Active 13898277 without complication, unspecified gastrointestinal tract location Problem Depression with F41.8 Active 23340766 anxiety Problem Essential I10 Active 49204010 hypertension Problem Impingement M75.42 Active 939216186502187 syndrome of left shoulder Problem Secondary M19.212 Active 547303674671233 osteoarthritis of left shoulder Problem Status post Z96.612 Active 333735052 replacement of left shoulder joint Problem Nodule of left R91.1 Active 777431015 lung Problem History of seizure Z87.898 Active 780254482 Problem 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 577510578 replacement of left shoulder Problem Gastroesophageal K21.9 Active 100749111 reflux disease without esophagitis Problem Osteoarthritis of M19.012 Active 38293366330903 04 left glenohumeral joint Problem Primary insomnia F51.01 Active 9633152 Problem Chronic pain G89.4 Active 356645143 syndrome Problem Pain, joint, M25.512 Active 11117647331161542 shoulder, left ALLERGIES No Known Allergies ENCOUNTERS from 1950 to 2019-12-26 Encounter Location Date Provider Diagnosis [facility] [address], [place] [address] IMMUNIZATIONS Vaccine Route Administration Date Status LIDOCAINE [...] Information RESULTS No Results REASON FOR VISIT CT Chest/MRI LSpine MEDICAL (GENERAL) HISTORY Type Description Date Medical [...] 9:15:00 AM, [address], [place], [address], Provider Name:Doug Wolf, 2020-03-09 1 0:10:00 AM, [address], [place], [address], Provider Name:Vivek Rojas, 2020-06-21 1 0:30:00 AM, [address], [place], [address], Insurance Providers Payer Name Payer Address Payer Insured Patient Coverage Cover age End Phone Name Relationship to Start Date Marek e Insured [employer] [address] [address] [phone] Shree Rothman 2019 MEDICARE PPO [facility] [id number]
--- NOTE | 2020-02-06 20:35 | RAD REPORT ---
EXAM DESCRIPTION: RAD -Hand Left 3 View - 02/06/2020 8:23 pm CLINICAL HISTORY: Left hand pain status post injury FINDINGS: Cortical regularity involves third and fifth metacarpal necks likely fractures The bones are osteoporotic. No dislocation Narrowing involves the DIP and PIP joints. Erosions involve the second and fifth DIP joint. Plate and screws and a pin affix old fractures of the radius and ulna
[2020-02-06] MEDS ORDERED: LIDOCAINE 1% 20 ML MDV ONE (20:46)
--- NOTE | 2020-02-06 21:01 | EDPHYS ---
Physician Documentation [facility] Name: Shree Rothman Age: 69 yrs Sex: Female : 1950 Arrival Date: 02/06/2020 Time: 19:52 Bed 6 Private MD: ED Physician Elmo Harvey HPI: 02/06 04:33 This 69 yrs old Female presents to ER via Ambulatory with complaints of Fall tw4 Injury, Hand Injury. 04:33 Details of fall: The patient fell from an upright position, while walking. Onset: The tw4 symptoms/episode began/occurred just prior to arrival, today. Associated injuries: The patient sustained dorsal aspect of proximal phalanx of left middle finger, obvious fracture, painful injury. Severity of symptoms: At their worst the symptoms were moderate, in the emergency department the symptoms have improved. The patient has not experienced similar symptoms in the past. Historical: - Allergies: 02/05 20:09 B-12; bb 20:09 CT contrast; bb - Home Meds: 20:09 Nexium Oral [Active]; Lexapro Oral [Active]; Hydrocodone-Acetaminophen Oral [Active]; bb tizanidine oral oral [Active]; gabapentin oral oral [Active]; Trazodone Oral [Active]; Vit D [Active]; - PMHx: 20:09 Lung Cancer; bb - PSHx: 20:09 Appendectomy; Shoulder surgery; bb - Immunization history:: Adult Immunizations up to date. - Social history:: Smoking status: unknown. ROS: 02/06 04:33 Constitutional: Negative for fever, chills, and weight loss, Eyes: Negative for injury, tw4 pain, redness, and discharge, Cardiovascular: Negative for chest pain, palpitations, and edema, Respiratory: Negative for shortness of breath, cough, wheezing, and pleuritic chest pain, Abdomen/GI: Negative for abdominal pain, nausea, vomiting, diarrhea, and constipation. Skin: Negative for injury, rash, and discoloration, Neuro: Negative for headache, weakness, numbness, tingling, and seizure. MS/extremity: Positive for injury or acute deformity, decreased range of motion, deformity, pain, of the left hand, Negative for Exam: 04:33 Constitutional: This is a well developed, well nourished patient who is awake, alert, tw4 and in no acute distress. Head/Face: Normocephalic, atraumatic. Chest/axilla: Normal chest wall appearance and motion. Nontender with no deformity. No lesions are appreciated. Cardiovascular: Regular rate and rhythm with a normal S1 and S2. No gallops, murmurs, or rubs. Normal PMI, no JVD. No pulse deficits. Respiratory: Lungs have equal breath sounds bilaterally, clear to auscultation and percussion. No rales, rhonchi or wheezes noted. No increased work of breathing, no retractions or nasal flaring. Abdomen/GI: Soft, non-tender, with normal bowel sounds. No distension or tympany. No guarding or rebound. No evidence of tenderness throughout. 04:33 Musculoskeletal/extremity: Extremities: noted in the dorsal aspect of proximal phalanx of left middle finger: decreased ROM, deformity, pain, swelling, tenderness. Vital Signs: 02/05 20:04 BP 137 / 67; Pulse 64; Resp 16 S; Temp 98.6(O); Pulse Ox 99% on R/A; Weight 57.61 kg bb (R); Height 5 ft. 2 in. (157.48 cm) (R); Pain 9/10; 21:31 BP 100 / 52; Pulse 65; Resp 18; Temp 98.5; Pulse Ox 100% on R/A; mg2 20:04 Body Mass Index 23.23 (57.61 kg, 157.48 cm) bb MDM: 20:04 Patient medically screened. tw4 02/06 04:33 Differential diagnosis: abrasion, closed head injury, contusion. Data reviewed: vital tw4 signs, nurses notes, radiologic studies, plain films. Data interpreted: Pulse oximetry: Interpretation: normal. Counseling: I had a detailed discussion with the patient and/or guardian regarding: the historical points, exam findings, and any diagnostic results supporting the discharge/admit diagnosis. Special discussion: I discussed with the patient/guardian in detail that at this point there is no indication for admission to the hospital. It is understood, however, that if the symptoms persist or worsen the patient needs to return immediately for re-evaluation. 02/05 20:04 Order name: Hand Left 3 View XRAY; Complete Time: 21:25 tw4 Administered Medications: 02/05 20:50 Drug: Lidocaine (1 %) 1 amp {Note: administered by the provider.} Volume: 20 ml; Route: mg2 Infiltration; 21:01 Drug: [place] 5 mg-325 mg 1 tabs Route: PO; mg2 21:30 Follow up: Response: No adverse reaction; RASS: Alert and Calm (0) ea Disposition: 02/06/20 21:00 Discharged to Home. Impression: Displaced fracture of neck of other metacarpal bone. - Condition is Stable. - Discharge Instructions: Metacarpal Fracture. - Prescriptions for Tramadol 50 mg Oral Tablet - take 1 tablet by ORAL route every 8 hours as needed; 12 tablet. - Medication Reconciliation Form, Thank You Letter, Antibiotic Education, Prescription Opioid Use form. - Follow up: Private Physician; When: Upon discharge from the Emergency Department; Reason: Recheck today's complaints, Continuance of care, Re-evaluation by your physician. Follow up: Aleksander Mejia MD; When: Upon discharge from the Emergency Department; Reason: Recheck today's complaints, Continuance of care, Re-evaluation by your physician. Follow up: Ramon Cleaning MD; When: Upon discharge from the Emergency Department; Reason: Recheck today's complaints, Continuance of care, Re-evaluation by your physician. - Problem is new. - Symptoms have improved. Signatures: Dispatcher [employer] EDMS Klaudia Bains, MANAGER DATA CENTER-C MANAGER DATA CENTER-[facility] Tiki Mares RN RN bb Elmo Harvey MD MD tw4 Juan Miguel Perez RN RN mg2 Antunez, Elena RN ea Corrections: (The following items were deleted from the chart) 21:03 21:00 02/06/2020 21:00 Discharged to Home. Impression: Displaced fracture of neck of tw4 other metacarpal bone. Condition is Stable. Forms are Medication Reconciliation Form, Thank You Letter, Antibiotic Education, Prescription Opioid Use. Follow up: Private Physician; When: Upon discharge from the Emergency Department; Reason: Recheck today's complaints, Continuance of care, Re-evaluation by your physician. Problem is new. Symptoms have improved. tw4 21:32 21:03 02/06/2020 21:00 Discharged to Home. Impression: Displaced fracture of neck of mg2 other metacarpal bone. Condition is Stable. Discharge Instructions: Metacarpal Fracture. Forms are Medication Reconciliation Form, Thank You Letter, Antibiotic Education, Prescription Opioid Use. Follow up: Private Physician; When: Upon discharge from the Emergency Department; Reason: Recheck today's complaints, Continuance of care, Re-evaluation by your physician. Follow up: Aleksander Mejia; When: Upon discharge from the Emergency Department; Reason: Recheck today's complaints, Continuance of care, Re-evaluation by your physician. Follow up: Ramon Cleaning; When: Upon discharge from the Emergency Department; Reason: Recheck today's complaints, Continuance of care, Re-evaluation by your physician. Problem is new. Symptoms have improved. tw4
--- NOTE | 2020-02-06 21:01 | ER ---
Nurse's Notes [facility] Name: Shree Rothman Age: 69 yrs Sex: Female : 1950 Arrival Date: 02/06/2020 Time: 19:52 Bed 6 Private MD: Diagnosis: Displaced fracture of neck of other metacarpal bone Presentation: 02/05 20:04 Chief complaint: Patient states: she fell about 30 minutes ago thinks she tripped over bb something denies LOC and did not hit her head, she landed on her knees scrapping both knees. Coronavirus screen: At this time, the client does not indicate any symptoms associated with coronavirus-19. Ebola Screen: No symptoms or risks identified at this time. Initial Sepsis Screen: Does the patient meet any 2 criteria? No. Patient's initial sepsis screen is negative. Does the patient have a suspected source of infection? No. Patient's initial sepsis screen is negative. Risk Assessment: Do you want to hurt yourself or someone else? Patient reports no desire to harm self or others. Onset of symptoms was February 06, 2020. 20:04 Method Of Arrival: Ambulatory 20:04 Acuity: DANYEL 4 bb Historical: - Allergies: 20:09 B-12; bb 20:09 CT contrast; bb - Home Meds: 20:09 Nexium Oral [Active]; Lexapro Oral [Active]; Hydrocodone-Acetaminophen Oral [Active]; bb tizanidine oral oral [Active]; gabapentin oral oral [Active]; Trazodone Oral [Active]; Vit D [Active]; - PMHx: 20:09 Lung Cancer; bb - PSHx: 20:09 Appendectomy; Shoulder surgery; bb - Immunization history:: Adult Immunizations up to date. - Social history:: Smoking status: unknown. Screenin:20 Abuse screen: Denies threats or abuse. Denies injuries from another. Nutritional mg2 screening: No deficits noted. Tuberculosis screening: No symptoms or risk factors identified. Fall Risk Fall in past 12 months (25 points). Assessment: 20:21 General: Appears in no apparent distress. Behavior is appropriate for age. Pain: ea Complains of pain in left hand. Respiratory: Airway is patent Respiratory effort is even, unlabored, Respiratory pattern is regular, symmetrical. Derm: Bruising that is bright red, on left polk. 21:29 Reassessment: Patient and/or family updated on plan of care and expected duration. Pain ea level reassessed. Patient is alert, oriented x 3, equal unlabored respirations, skin warm/dry/pink. Vital Signs: 20:04 BP 137 / 67; Pulse 64; Resp 16 S; Temp 98.6(O); Pulse Ox 99% on R/A; Weight 57.61 kg bb (R); Height 5 ft. 2 in. (157.48 cm) (R); Pain 9/10; 21:31 BP 100 / 52; Pulse 65; Resp 18; Temp 98.5; Pulse Ox 100% on R/A; mg2 20:04 Body Mass Index 23.23 (57.61 kg, 157.48 cm) bb ED Course: 19:52 Patient arrived in ED. bp1 19:56 Elmo Lema MD is Attending Physician. tw4 20:06 Triage completed. bb 20:09 Arm band placed on Patient placed in an exam room, on a stretcher, on pulse oximetry. bb 20:17 Juan Miguel Perez, RN is Primary Nurse. mg2 20:20 Patient has correct armband on for positive identification. mg2 20:23 Hand Left 3 View XRAY In Process Unspecified. EDMS 21:01 Assist provider with nerve block (digital) of dorsum of left hand Set up for procedure. mg2 Performed by Elmo Lema MD Patient tolerated well. Patient did not have IV access during this emergency room visit. 21:02 closed reduction done by dr lema. mg2 21:03 Aleksander Mejia MD is Referral Physician. tw4 21:03 Ramon Cleaning MD is Referral Physician. tw4 21:12 Orthoglass splint: Ulnar gutter/Boxer splint applied on left forearm. dh4 Administered Medications: 20:50 Drug: Lidocaine (1 %) 1 amp {Note: administered by the provider.} Volume: 20 ml; Route: mg2 Infiltration; 21:01 Drug: [place] 5 mg-325 mg 1 tabs Route: PO; mg2 21:30 Follow up: Response: No adverse reaction; RASS: Alert and Calm (0) ea Outcome: 21:00 Discharge ordered by . tw4 21:30 Condition: stable ea 21:31 Discharged to home ambulatory, with family. mg2 21:31 Condition: stable 21:31 Discharge instructions given to patient, family, Instructed on discharge instructions, follow up and referral plans. medication usage, Demonstrated understanding of instructions, follow-up care, medications, splint care, Prescriptions given X 1. 21:32 Patient left the ED. mg2 Signatures: Dispatcher [employer] EDMS Tiki Mares RN RN bb Ny Banks RN RN ea Wadley, Terrence, MD MD tw4 Juan Miguel Perez RN RN mg2 Harshil Medina 4 Bozena Hilton [facility]
[2020-02-06] MEDS ORDERED: HYDROCODONE/APAP 5/325 MG TAB ONE (21:11)
[2020-02-06 22:22] VITALS: BP 100/52; TEMP 98.5; O2SAT 100
== END 2020-02-06 21:32 | disposition home or self-care (01) ==
LOC: ER 19:49
PROC: 2W3DX1Z Immobilization of Left Lower Arm using Splint (ICD-10-PCS; principal; 2020-02-06)
DX: S62.338A Displaced fracture of neck of other metacarpal bone, initial encounter for closed fracture (principal); W19.XXXA Unspecified fall, initial encounter; Y93.01 Activity, walking, marching and hiking; Y92.9 Unspecified place or not applicable; Z85.118 Personal history of other malignant neoplasm of bronchus and lung; Z91.041 Radiographic dye allergy status; Z91.048 Other nonmedicinal substance allergy status
CPT/HCPCS: 64450; 99284

== ENCOUNTER 2020-11-02 20:36 | Emergency (ER) | payer OTHER ==
--- OUTSIDE RECORDS SUMMARY | 2020-11-02 20:39 | XMS REPORT | Continuity of Care Document ---
:1950 Author Organization [facility] t Address [address] [place] [address] Care Team Providers Name Role Phone Bam Wolf DO Primary Care Physician Denzel Fowler Attending Clinician Camilla Rea Attending Clinician Zain Abad MD, W Attending Clinician DEEPTI PITTMAN Attending Clinician Unavailable Deepti Pittman MD Attending Clinician Arias NARVAEZ, L. Attending Clinician Regis Fulton Attending Clinician Jake Baird NP Attending Clinician Gerber Denise Attending Clinician DEEPTI PITTMAN Admitting Clinician Unavailable Payers Payer Name Policy Type Policy Effective Date Expiration Date Sour ce Number HUMANA - MEDICARE [id number] 2018 CAMERON French Lukay MGD CAREHUMANA 00:00:00 - Medical MEDICARE Center [id number]/[id number] 019-PresentMaps Contracted Problems Condition Condition Condition Status Onset Resolution Last Treating Co mments Source Name Details Category Date Date Treatment Clinician Date Adenocarci Adenocarci Disease Active 2019-[address] [facility] - left lung left lung 00:00: [place] [address] Center NSCLC of NSCLC of Disease Active 2019-04 [facility] lung 1[facility]16 [facility] - 00:00: Medical 00 Center LEFT LUNG Diagnosis Active 2019-042020-01-29 Memoria BIOPSY 0-26 09:45:00 l LEFT 00:00: [place] LUNG 00 BIOPSY Active 01/26/2020 [facility] 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:34:27 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 10/30/2020 [facility] Cerebral Problem Active 2020-10-30 Mem oria atheroscle 01:34:27 l rosis Cerebral Joseluis n (disorder) atheroscle rosis (disorder) Active Problem 10/30/2020 [facility] Essential Problem Active 2020-10-30 Me moria tremor 01:34:27 l (disorder) Joseluis n Essential tremor (disorder) Active Problem 10/30/2020 [facility] Allergies, Adverse Reactions, Alerts Allergy Allergy Status Severity Reaction(s) Onset Inactive Treating Comm ents Source Name Type Date Date Clinician Cyanocob Propensi Active Anaphylaxis 2019-04 Injectio n [facility] St alamin ty to 1-13 , Age 17 [facility] - (Vitamin adverse 00:00: Medical B-12) reaction 00 Center s Iodinate Propensi Active Hives, 2019-[address] [facility] [facility] ty to Itching 1-10 [facility] - Contrast adverse 00:00: Medical Media reaction 00 Center s gadolini gadolini Active Memori a um um l containi containi Joseluis n ng ng compound compound s s contrast contrast Active Memori a media media l (iodine- (iodine- Joseluis n based) based) Vitamin Vitamin Active Memoria B12 B12 l [place] Social History Social Habit Start Date Stop Date Quantity Comments Source History of tobacco Current smoker [facility] use [facility] Sex Assigned At [facility] - [facility] Cigarettes smoked 2020-02-17 2020-02-[address] [facility] [address] [facility] - current (pack per 00:00:00 00:00:00 Medical Center day) - Reported Cigarette 2020-02-17 2020-02-[address] [facility] [address] [facility] - pack-years 00:00:00 00:00:00 [facility] Tobacco use and 2020-02-17 2020-02-17 Never used [facility] ke - exposure 00:00:00 00:00:00 [facility] Alcohol intake 2020-02-17 2020-02-17 Current drinker of [facility] - 00:00:00 00:00:00 alcohol (finding) [facility] Alcohol Comment 2020-02-13 2020-02-[address] [facility] - 00:00:00 00:00:00 [facility] Smoking Status Start Date Stop Date Source Former smoker 2020-02-17 00:00:00 2020-02-17 00:00:[address] [facility] Medications Ordered Filled Start Stop Current Ordering Indication Dosage Frequency Signature Comments Components Source Medication Medication Date Date Medication? Clinician (SIG) Name Name Aspirin 81 Yes 81 mg = 1 Me moria MG Enteric 7-28 tab, PO, l Coated 16:38: Daily, 0 [place] Tablet [St. 00 Refill(s) Garrett Aspirin] Vitamin Yes 100 Memoria B-12 100 6-09 microgram l mcg oral 21:30: = 1 tab, Kathleen nn tablet 00 PO, Daily, # 30 tab, 0 Refill(s) Folic Acid Yes Daily, 0 Mem oria 6-09 Refill(s) l 21:30: [place] 00 traZODone 2019-04 Yes 150mg QD Take [address] (DESYREL) 1-18 mg by [facility] - 50 MG 11:29: mouth Medical tablet 28 nightly. [place] diphenoxyla 2019-04 Yes 1{tbl} Take [address]-atropine 1-18 tablet by Cristino es - (LOMOTIL) 11:29: mouth 4 Medic al 2.5-0.025 28 (four) Center mg per times tablet daily as needed for Diarrhea. escitalopra 2019-04 Yes 20mg QD Take [address] m oxalate 1-18 by mouth [facility] - (LEXAPRO) 11:29: daily. Medica l 20 MG 28 Center tablet esomeprazol 2019-04 Yes 40mg QD Take [address] e (NexIUM) 1-18 by mouth [facility] - 40 MG 11:29: daily. Medical capsule 28 Center HYDROcodone 2019-04 Yes 1{tbl} Take [address] -acetaminop 1-18 tablet by Cristino es - hen (NORCO 11:29: mouth Medica l 10-325) 28 every 6 Center 10-325 mg (six) per tablet hours as needed for Pain. ondansetron 2019-04 Yes 4mg Take [address] (ZOFRAN) 4 1-18 by mouth 2 Cristino es - MG tablet 11:29: (two) Medical 28 times Center daily as needed for Nausea. tiZANidine 2019-04 Yes 4mg Take [address] (ZANAFLEX) 18 by mouth [facility] - 4 MG tablet 11:29: every 6 Med ical 28 (six) Center hours as needed. triamcinolo 2019-04 Yes Apply [facility] ne 18 topically [facility] - (KENALOG) 11:29: 2 (two) Medic al 0.5 % 28 times Center ointment daily as needed. cholecalcif 2019-04 Yes 1000U QD Take 1,[address] pearl 1-18 Units by [facility] - (VITAMIN 11:29: mouth Medical D3) 25 mcg 28 daily. Center (1,000 unit) tablet gabapentin 2019-04 2020- No 300mg Take [address] (NEURONTIN) -18 11-18 mg by [facility] - 300 MG 10:08: 00:00 mouth 3 Medical capsule 09 :00 (three) Center times daily as needed. gabapentin 2019-04 2020- No 300mg [id number] Take [address] (NEURONTIN) 1-18 11-28 [id number] capsule [facility] - 300 MG 00:00: 23:59 3D (300 mg Medical capsule 00 :00 total) by Center mouth 3 (three) times daily for 10 days. Escitalopra 2019-04 Yes 20 mg = 1 M emoria m 20 MG 0-28 tab, PO, l Oral Tablet 13:00: Daily, # He rmann [Lexapro] 00 30 tab, 0 Refill(s) Esomeprazol 2019-04 Yes 40 mg = 1 M emoria e 40 MG 0-28 cap, PO, l Enteric 13:00: Daily, # Joseluis n Coated 00 30 cap, 0 Capsule Refill(s) [Nexium] Vitamin D3 2019-04 Yes 1,000 Memori a 1000 intl 0-28 IntlUnit = l units oral 13:00: 1 cap, PO, H ermann capsule 00 Daily, # 75 cap, 0 Refill(s) trazodone 2019-04 Yes 150 mg = 1 Me moria 150 mg oral 0-28 tab, PO, l tablet 13:00: Bedtime, # Kathleen nn 00 30 tab, 0 Refill(s) tizanidine 2019-04 Yes 8 mg = 2 Mem oria 4 mg oral 0-28 tab, PO, l tablet 13:00: Q8H, 0 [place] 00 Refill(s) gabapentin 2019-04 Yes 300 mg = 1 M emoria 300 MG Oral 0-28 cap, PO, l Capsule 13:00: TID, # 90 Kathleen nn 00 cap, 1 Refill(s) Acetaminoph 2019-04 Yes 1 tab, PO, Memoria en 325 MG / 0-28 Q6H, PRN l Hydrocodone 13:00: for pain, H ermann Bitartrate 00 # 24 tab, 10 MG Oral 0 Tablet Refill(s) [[place] 10/325] Nexium Nexium Yes Vivek [address] [facility] Tizanidine Tizanidine Yes Vivek 1-[address] HCl HCl [facility]jas tablets [facility] - as needed [facility] Hydrocodone Hydrocodone Yes Vivek [address] -Acetaminop -Acetaminop Rojas as needed [facility] - hen hen [facility] Fluorouraci Fluorouraci Yes Vivek APPLY TO [facility] l [facility]jas AFFECTED [facility] - AREAS Memoria TWICE l DAILY FOR Outpati TWO WEEKS. ent Clinics Trazodone Trazodone Yes Vivek 1-[address] HCl HCl [facility] tablets as [facility] - needed [facility] Lexapro Lexapro Yes Vivek [address] [facility] Ondansetron Ondansetron Yes Vivek [address] HCl HCl [facility]jas [facility] Diphenoxyla Diphenoxyla Yes Vivek [address] te-Atropine te-Atropine Rojas as needed [facility] Gabapentin Gabapentin Yes Vivek 1-[address] [facility] capsules [facility] - as needed [facility] Vital Signs Vital Name Observation Time Observation Value Comments Source Systolic (mm Hg) 2020-10-27 16:06:00 Rob rial [place] Diastolic (mm Hg) 2020-10-27 16:06:00 Mem orial [place] Heart Rate 2020-10-27 16:06:00 [facility] [place] Respitory Rate 2020-10-27 16:06:00 Memori al [place] Height 2020-10-27 16:06:00 157.48 cm [facility] [place] Weight 2020-10-27 16:06:00 [facility] [place] BMI Calculated 2020-10-27 16:06:00 Memori al [place] Systolic (mm Hg) 2020-09-08 21:24:00 Rob rial [place] Diastolic (mm Hg) 2020-09-08 21:24:00 Mem orial [place] Heart Rate 2020-09-08 21:24:00 [facility] [place] Respitory Rate 2020-09-08 21:24:00 Memori al [place] Height 2020-09-08 21:24:00 157.48 cm [facility] [place] Weight 2020-09-08 21:24:00 [facility] BMI Calculated 2020-09-08 21:24:00 [facility] [place] Systolic blood 2020-02-18 10:00:00 105 mm[Hg] [facility] Diastolic blood 2020-02-18 10:00:00 66 mm[Hg] [facility] Heart rate 2020-02-18 10:00:00 64 /min [facility] Body temperature 2020-02-18 10:00:00 37.17 Jazmyne [facility] Respiratory rate 2020-02-18 10:00:00 20 /min [facility] Oxygen saturation in 2020-02-18 10:00:00 93 /min [facility] - Arterial blood by Medical Ce nter Pulse oximetry Body weight 2020-02-18 05:00:00 57 kg [facility] BMI 2020-02-18 05:00:00 22.62 kg/m2 [facility] Body height 2020-02-16 10:20:00 158.8 cm [facility] Height 2020-01-28 12:43:00 158.75 cm [facility] Weight 2020-01-28 12:43:00 [facility] [place] BMI Calculated 2020-01-28 12:43:00 Cristi Kearns Height 2020-01-26 18:22:00 157.48 cm Surendra Moffett Weight 2020-01-26 18:22:00 Surendra Moffett BMI Calculated 2020-01-26 18:22:00 Cristi Kearns Procedures Procedure Date / Time Performing Clinician Source Performed XR CHEST 2 VIEWS 2020-03-02 12:48:00 Rona Elzbieta Sampson [facility] XR CHEST 1 VIEW 2020-02-18 04:10:00 Inga Villalpando [facility] XR CHEST 1 VIEW 2020-02-17 11:45:00 Dacia Booker [facility] XR CHEST 1 VIEW 2020-02-17 04:30:00 Inga Villalpando [facility] BASIC METABOLIC PANEL (7) 2020-02-17 03:30:00 Inga Villalpando [facility] MAGNESIUM 2020-02-17 03:30:00 Inga Villalpando [facility] CBC W/PLT COUNT & AUTO 2020-02-17 03:30:00 Inga Villalpando [facility] XR CHEST 1 VIEW 2020-02-16 16:49:00 Inga Villalpando [facility] TISSUE EXAM 2020-02-16 15:27:00 Zain Miguel Angel [facility] THORACOSCOPY 2020-02-16 13:01:00 Miguel Angel Pittman [facility] - (VATS),SEGMENTECTOMY [facility] ter THORACOSCOPY 2020-02-16 13:01:00 Miguel Angel Pittman [facility] - (VATS),LYMPHADENECTOMY [facility] C enter BRONCHOSCOPY 2020-02-16 13:01:00 Zain Miguel Angel [facility] ABORH, MANUAL 2020-02-16 10:51:00 Kristin Cruz [facility] POCT-GLUCOSE METER 2020-02-16 10:24:00 Zain Miguel Angel [facility] REPORT OF PROCEDURE - 2020-02-16 00:00:00 Provider, Vibha [facility] - ENDOSCOPY SCAN Scanning [facility] ECG 12-LEAD 2020-02-13 15:24:20 Elzbieta Rea [facility] XR CHEST 2 VIEWS 2020-02-13 14:51:00 Elzbieta Rea [facility] SARS-COV2/RT-PCR ([facility] & 2020-02-13 14:20:00 Kel Baird [facility] - REF LABS) [facility] COMPREHENSIVE METABOLIC 2020-02-13 14:20:00 Elzbieta Rea [facility] PANEL [facility] CBC W/PLT COUNT & AUTO 2020-02-13 14:20:00 Elzbieta Rea [facility] DIFFERENTIAL [facility] PT/APTT 2020-02-13 14:20:00 Elzbieta Rea [facility] TYPE AND SCREEN, 2020-02-13 14:20:00 Elzbieta Rea [facility] AUTOMATED [facility] Center Plan of Care Planned Activity Planned Date Details Comments Source Future Scheduled 2020-12-01 INFLUENZA VACCINE (#1[facility] Test 00:00:00 [code = INFLUENZA Medical Ce nter VACCINE (#1)] Future Scheduled 2020-04-[address] [facility] - Test 00:00:00 (12+) [code = Medical Center DEPRESSION SCREENING (12+)] Future Scheduled 2019-04-[address] [facility] - Test 00:00:00 WELLNESS (YEAR 2 or Medical Center FIRST YEAR if no IPPE) [code = MEDICARE ANNUAL WELLNESS (YEAR 2 or FIRST YEAR if no IPPE)] Future Scheduled 2016 PNEUMOCOCCAL 65+ YRS [facility] - Test 00:00:00 (1 of 1 - Medical Center [id number]) [code = PNEUMOCOCCAL 65+ YRS (1 of 1 - [id number] PCV13)] Future Scheduled 2001 SHINGLES VACCINES ([address] [facility] - Test 00:00:00 of 2) [code = SHINGLES Medic pr Center VACCINES (1 of 2)] Future Scheduled 1970 DTAP/TDAP/TD VACCINES [facility] - Test 00:00:00 (1 - Tdap) [code = Medical C enter DTAP/TDAP/TD VACCINES (1 - Tdap)] Future Scheduled 1969 HEPATITIS C SCREENING [facility] - Test 00:00:00 [code = HEPATITIS C Medical Center SCREENING] Future Scheduled 1963 COVID-19 VACCINE (1) [facility] - Test 00:00:00 [code = COVID-[address] VACCINE (1)] Future Scheduled [address] [facility] - Test 00:00:00 [facility] breast (procedure) [code = 528757862] Future Scheduled [address] [facility] - Test 00:00:00 [facility] colon (procedure) [code = 995642469] Encounters Start End Encounter Admission Attending Care Care Encounter Source Date/Time Date/Time Type Type Clinicians Facility Department ID 2020-10-27 2020-10-27 [id number] 10:45:00 23:59:59 Azar 02 Denzel 2020-10-20 2020-10-20 Outpatient PHOEBE FowlerSCHER [id number] 13:30:00 13:30:00 Azar 01 Denzel 2020-09-08 2020-09-08 Outpatient PHOEBE FowlerSCHER [id number] 16:00:00 23:59:59 Azar 00 Denzel 2020-07-05 2020-07-05 Outpatient [facility] [id number] [facility] 2020-06-21 2020-06-21 Outpatient [facility] [id number] [facility] 2020-06-17 2020-06-17 Outpatient [facility] [id number] [facility] 2020-06-17 2020-06-17 [facility] [id number] 2020-04-16 2020-04-16 [facility] [id number] [facility] 2020-04-05 2020-04-05 [facility] [id number] [facility] 2020-03-15 2020-03-15 [facility] [id number] [facility] 2020-03-02 2020-03-02 Office REBECCA Pittman [id number] 12:51:50 13:06:50 Visit Miguel Angel W AMBULATOR [id number] Y [id number] 2020-02-24 2020-02-24 Outpatient [facility] [id number] [facility] 2020-02-20 2020-02-20 Outpatient [facility] [id number] [facility] 2020-02-10 2020-02-10 Office Zain REBECCA [id number] 10:17:34 14:07:38 Visit Miguel Angel W AMBULATOR [id number] Y [id number] 2020-02-10 2020-02-10 [facility] [id number] [facility] 2020-01-28 2020-01-28 Outpatient SUZY Denise BETO [id number] 06:45:00 12:15:00 Wang Mayes 04 2020-01-28 2020-01-28 Outpatient SUZY Denise BETO [id number] 06:45:00 12:15:00 Wang Mayes 04 2020-01-28 2020-01-28 Outpatient [facility] PUL [id number] 06:45:00 06:45:00 2019-12-25 2019-12-25 [facility] [id number] [facility] 2019-12-25 2019-12-25 [facility] [id number] [facility] 2019-12-16 2019-12-16 [facility] [id number] [facility] 2019-12-11 2019-12-11 [facility] [id number] 10:30:00 10:30:00 [facility] ent Clinics 2019-12-09 2019-12-09 [facility] [id number] 10:20:00 10:20:00 t [place] Reaction [place] - Drive [facility] 2019-11-24 2019-11-24 [facility] [id number] 14:25:00 14:25:00 t [place] Reaction [place] - Drive [facility] 2019-11-17 2019-11-17 [facility] [id number] 15:34:00 15:34:00 t [place] Reaction [place] - Drive [facility] Outpati ent Clinics 2019-10-31 2019-10-31 [facility] [id number] 11:29:00 11:29:00 t [place] Reaction [place] - Drive [facility] 2019-09-11 2019-09-11 [facility] [id number] 11:00:00 11:00:00 t [facility] ent Clinics 2019-09-05 2019-09-05 [facility] [id number] 11:15:00 11:15:00 [place] Luke s - Drive [facility] 2019-09-05 2019-09-05 [facility] [id number] 11:00:00 11:00:00 [place] s - Drive [facility] 2019-07-30 2019-07-30 [facility] [id number] 11:00:00 11:00:00 t [facility] 2019-07-25 2019-07-25 [facility] [id number] 10:09:00 10:09:00 t [facility] 2019-07-03 2019-07-03 [facility] [id number] 13:30:00 13:30:00 t [facility] 2019-06-26 2019-06-26 [facility] [id number] 10:09:00 10:09:00 t [facility] 2019-06-24 2019-06-24 [facility] [id number] 11:00:00 11:00:00 t [place] [employer] [facility] 2019-06-24 2019-06-24 [facility] [id number] 07:40:00 07:40:00 t [facility] Results Test Description Test Time Test Comments Results Result [facility] e Comments RAD, CHEST, 2 Reason for VIEWS 1 Exam:->Primar 14:03:00 y lung [facility] - MEDICAL a, left CENTERName: SANCHO NIETO : 1950 Sex: F FINAL REPORT EXAMINATION: PA and lateral views of the chest. COMPARISON: February 18, 2020 CLINICAL HISTORY: Primary lung adenocarcinoma DISCUSSION: Lines/tubes: None. Lungs: Mild volume loss in the left lung with postsurgical resection of a previous mass. Linear scarring with postsurgical change. Pleura: Left pleural thickening versus small effusion. Heart and mediastinum: The cardiomediastinal silhouette is normal. Bones and soft tissues: No acute bony abnormalities. Left humeral head arthroplasty. IMPRESSION: Postsurgical change of the left hemithorax with mild volume loss and linear scarring. No pneumothorax. Small pleural effusion versus pleural thickening. Signed: Regis Gonzales Verified Date/Time: 03/02/2020 14:03:46 Reading Location: [facility] Reading Room [address] [place] [address] Chest 2 Views 2019--0 Interface, External [facility] 1 Ris In - 03/02/2020 - Med ical 14:03:00 2:06 PM CSTFINAL Center REPORT EXAMINATION: PA and lateral views of the chest. COMPARISON: February 18, 2020 CLINICAL HISTORY: Primary lung adenocarcinoma DISCUSSION: Lines/tubes: None. Lungs: Mild volume loss in the left lung with postsurgical resection of a previous mass. Linear scarring with postsurgical change. Pleura: Left pleural thickening versus small effusion. Heart and mediastinum: The cardiomediastinal silhouette is normal. Bones and soft tissues: No acute bony abnormalities. Left humeral head arthroplasty. IMPRESSION: Postsurgical change of the left hemithorax with mild volume loss and linear scarring. No pneumothorax. Small pleural effusion versus pleural thickening. Signed: Regis Gonzales Verified Date/Time: 03/02/2020 14:03:46 Reading Location: [facility] Reading Room [address] [place] [address] Tissue Exam 2020-02-20 19:59:00 Test Item Value Reference Range Interpretation Comme nts Case Report (test code = 104) Surgical Pathology Report Case: [id number] Authorizing Provider: Miguel Angel Pittman Collected: 02/16/2020 03:27 PM Deepti Abad MD Ordering Location: [facility] Received: 02/16/2020 04:41 PM PERIOPERATIVE SERVICES Pathologist: Dean Lucia MD Specimens: A) - Lung, Left, Left Lingular Segmentectomy B) - Lymph Node, Interlobar, Left, Station 11L C) - Lymph Node, Interlobar, Left, Station 11L, Station 11L #2 D) - Lymph Node, Subaortic (Aorto-Pulmonary Window), Station 5 E) - Lymph Node, Subcarinal, Station 7 DIAGNOSIS (test code = 3220) u6hltQXnVJJcv5vdERFpdKZcSjQuTzGcNmBrWw pcd WMxIHtccnRmMVxlcGljOTIwMFxhbnNpXHNwbHRwZ3 IpeoevWDhtLC4jBR4mzGuvnQSenOLhJBRvKpEgi0n rb777gJCtj9pjNLSPrruvnZt7hGonB55as5X7Vuvn U37klLRiLPtneIStgkgdwmFuVGAtZLvPQlvwYQgEJ iQmOKnGU2BLIRhzJ7KQZDSZQWOYUF9ISWkosWNwWK PsEF8kIL0OPQHRXiOoPAQGZd8NYWKVGS7AHPGoNGG CFD0AZdQVEbDNK61ZFfWJUBgyDHVoIDUvRYHlYBLu xoRNXxZRKNNSCJMFAH0AIqKOML6ORkKIJ861KKHlF RWLXXTjrYLrFOKyZMXeNRJkZN8jOuTkTGAxUSOVZJ 2IHVDVI3ISAMxbAK2QG1xOKDQoGTyKISCVXmVUR5Q kE4MxRptXS3IRKKdaXQgBWLNGKSVLUHRfFcTvKYCq ZOfVDTMxO12IQZTTIQdfiWQcRFKfTEXoIWTmYI8dQ LSQRcUEK3aKCLOXPQ8NIjfOHcUBGcSGFIQnOasgI6 0gXHBhciAgICAgICAgICB+IGOJInKOTH8QMQ7EQRE DEQtBUhLPTaQXO3gNJkHTBGJPQScYSOCNZCWjjjYt ICAgICAgICB+ICBOTyBQRVJJTkVVUkFMIElOVkFTS U7OBKaBCG3TUDCGTGOndRIlJUPuFQUjFNMsJO4aCH XWGTgLBX3GIRRpF0QOC0OmC5yNQ9RRPxpTHCYJM68 tSWIDWx2qSCWRZ1UgYDXbIVLbfFWox89qEhKiAOIi jT4jBTEJDIVkiPJfQHEbUL3lHUwRIF9QIQSICP6TB 8XXKJ1QPAIRKN4UMHCDDsstRY5tSWEWCZDRDDHfZy FlS43eIW0oM1CLXOJQN7FgJAbJNV4BJM4THYkNRPE gS29VUDQPEMuecUQsNYQgfsWDFtMCUZ3NAHGAQ4HZ DYSZLALKBDjXSABLKB1KAnWMZUQBHU9GHXKyVAhcM klPUFNZOlxwYXIgICAgLSBPTkUgQkVOSUdOIExZTV EQHE6RSXZfVMMkXHocpCViNEDpuaFOQpLUXZ1QTFP NT6OOEQCNBIRXOFyZGHDORD1QJiTSTQEPBB6PSXGl TCwgQklPUFNZOlxwYXIgICAgLSBPTkUgQkVOSUdOI ZuJEVKWYT1HKGZdCXAbOWorjYFvJAWadlAUTxXNIY 7AOVHXE3BZPNMBFFRWE6ZWSWBzZ4ECPNuUXrX4EMH QJS0NR2s6IMJtrtDoPSCbPF3PAKYWLS2VV68mWBlY EZgrRi3FGSBwJC0vPYkzIMBloSFrPATrTVoBSRRJV Z0GOEStAHQWYgFNEakOTZnxO2SITGjLYzA4VIROLO 4NH8h3KLXfrmKrNTZrNB9NKHHPLR0PX99bCOzPRVy iVp7FOPIeGC3lGCcbDPX7m6unzFCdIZIspJJlUWPy NZobnzJgWFVyZdhjhbknJKQrEIB8uoYyIIVkFGupO FYwPRirDj0byUOvjKwzPfYkWWFez4ujcmBYwvzwlF n3g3ehVUVrEsE2wGTdAVkcN7bittVhaPDkXKYcUFv 0lZ42HSXkpT6yrNJvCDaurxJmBkN0MMxlFEJrYvY5 LDRqyOMdYWHoB5ojAYZyNPmaBXRcOBxfqFQyAOQ6m Mtnw0O8aRRwiBTnqUhgZdLyYzIyHnFEt8WbSGj3uZ kqT4RpHSDaPcG7oWIvRJSnABhjWLRnHFNyvwB8jE9 1PJnyseW8xSMbw2Tay85bi801fD5qoMUyDWC8XXQv MTVmvPQiXJPiUIL8OWTttNBlG2zsIYUcBD5ewuynX GgiYQvwOGNnoWS3OWFxhREsU2UhVWSrMKemSVOoks h2TjEsKo8ctWXvdMveQTwzd6cbe4baiTRyYkf6WCE sTfMkMuccORekg7Mgr5mzGPCnof4nACU2iJBxwKpp e9J8ePCwREAgvHUfWAUjOA5buNUuVSCjgL7dcvspN VFbNsVqjcawFKGqeYhhjhSvBq8vgOgeOPA6TGgfR5 jbzF8eLsQ5PPgcP5ghtA7fSYf2WEiyKTSdbBB2eqZ 9CQVgzUTlW1BniD1eZOSmQF5gpuq4c8uuLYD3IJry MGYeVfO6woB7LUArcFHzLWFugRvnPIwiz510AJC0I kOsWECdr1CgB3SraUztA65daSekA48iIBMbeBljiU 4vbUzoxX8wPdRaLaDkQZpxbHnxYM5yRIHxP3ivmMY yABOvHPLlN3ftFbGtdI7isVjnMTxgzrQmAVVpSxx7 UOBphLWeDMBlVpm7EGRsWKZaJ13tonfhGUR7iU6gr 2uku5ZkRSleQBJ2BXMbl13eUNmhomW2LRylTw1cEG NiTKd0JVflGBY0cH== COMMENT (test code = 3359) s2juqASoQLVaiHD0MyDkWLKsr4yjk8OvtPHjiAYy X JwyeNTwreMvzn39jMW2fN41ZJ4rFSJaDzR5XIAaiq W8Cqh6AXJvFJLxzYQnA456r3chy0qkhxXqfFB2lHw eXNIhYQDuEEiyQNVhOpIcNH1qHavvJ1suLVA7VRBf NWdbOHKiE1yqt0CcuXjzURA1mZ4hCVOcOWGsomDla 79riYpiUYEli1QjlpZhPPVyUWUuTFWwmFSrRLUnKU R2hGnivWIpzWXxroWyv5QgfRw5KJKoe2PuKDCHINS kTF0zFS8rD7C4kQBwGVNlzmDaNAusLDWnvwtdSeRS gPJgZACxlE6gnJ6mbnKslhDiH32tf4rxdQZqoFV2y AVmPPJnS2KvSQUtb0NcrsDfJIDeGGMpEFDoxjZgjU YtsUZymYVioGQwWLMqhA2tsXBdBWrwHZQjjWGyGDI ne5PbZBB0QtS6w89zb23uzBjcWy9poAUfOfZdAXN8 GRKwruK0rq6bxlNhW5HqohAhC6DdgWNiZYztBqAeQ F1vAVYzZyQgvJlaccKetRYdc1CokKMgmg56nlMvJL MbOPPeWzPtQ1DmUGLyk8T3KM7zEKootJBpzDOzptZ jx5KknKx9CRL7pLZnEVU5ilQmjI0dmMlteV5qLH8p TOElnm2fi9krBX8yhdEulxGjXKAdYYVucyAiy9Hmw cZch5f7aSLuYNIsf4HgSB0fmduiRKT1oE1sueteuY MuIFxwYXJccGFyIElOVFJBREVQQVJUTUVOVEFMIEN WYuVDWFMPESqMTpkgUBTuNEhwwNZbQN9hVZrrKGUj PVKfBHFthWUtUALcFX3vb1wjBKDpOSZlVANuugSdH Ifgv9g2kEAbyM15mp5ebJPvtuKgRL5uJYCTJsZwfp WkAVrlCGWmUCvzvLebxSmxUOIgPVfhh6Pedu2iSDX hclxwYXJ9 SYNOPTIC REPORT (test code = 71) LUNG (LUNG: RESECTION - A) [facility] ition - Protocol posted: 05/28/2019 SPECIMEN Procedure: Segmentectomy Specimen Laterality: Left TUMOR Tumor Site: Upper lobe of lung: lingula Tumor Site: Not specified Histologic Type: Invasive adenocarcinoma, acinar predominant Other Subtypes Present: lepidic Histologic Grade: G2: Moderately differentiated Spread Through Air Spaces (LUIS): Not identified Tumor Size: Total Tumor Size (size of entire tumor): Greatest Dimension (Centimeters): 1.5 cm Size of Invasive Component: Greatest Dimension (Centimeters): 1.1 cm Tumor Focality: Single focus Visceral Pleura Invasion: Present Direct Invasion of Adjacent Structures: No adjacent structures present Treatment Effect: No known presurgical therapy Lymphovascular Invasion: Not identified MARGINS Margins: All margins are uninvolved by tumor Margins Examined: Parenchymal Distance of Invasive Carcinoma from Closest Margin (Centimeters): 2.7 cm Closest Margin: Parenchymal LYMPH NODES Number of Lymph Nodes Involved: 0 Number of Lymph Nodes Examined: 4 Ramin Stations Examined: 7: Subcarinal Ramin Stations Examined: 5: Subaortic/ aortopulmonary (AP) / AP window Ramin Stations Examined: 11L: Interlobar PATHOLOGIC STAGE CLASSIFICATION (pTNM, AJCC 8th Edition) Primary Tumor (pT): pT2 Regional Lymph Nodes (pN): pN0 ADDITIONAL FINDINGS Additional Findings: neuroendocrine tumorlets CPT Code(s) (test code = 3357) p8trjPBiEDIopJO8NxGfZLJng3fwh4ZhfFOl cGFyX IxtiODboaJfgt04hPD0mE17LQ9dENKcRsO4JBJgbh Y5Fnr0YIWoLKErzGFpQ380r8lkm5lvyjIynLG0rCr uFNTaACLeEAcpXPGpFeFiRUgxHLaeGWo8ZiO1YKhi SCofTWxiDOZtHOb1RsPhEQubFbppWJotZKZqlLDpS HBhcn0= CLINICAL HISTORY (test code = 3356) z4kbmDAiEHQrtDS7OiThLHDoz8ivi8K sdHBncGFyX HqumGUplbHoxe18tQW5rG62JI8bGZTeXaB2OAFosk Y0Wyp0UOIuLSGlvMVgO696k9gyw5yidqCwuFQ7iZx lQXQyZWCtEXaePHHkBzVtZ0AnO4fnv22rAT6fLXx8 bmcsIGxlZnRccGFyfQ== SPECIMEN SOURCE (test code = 3377) z1gqyHWtIKSmtZH8MxRgDEWdp1qfc3Ra dHBncGFyX RmorEPhofUxwa14bOH2iE28JC0jWAOhVrN3YWKwge B7Pnc0KIPbFYKihOKfZ522v4qce2segoQxhFT1rEl wYXJkXHBsYWluXGZzMjAgTHVuZywgbGVmdCwgbHlt eNnbbg5tPCOklsZvEGhhWzTyAWNcwQJkgMSlzJL1e M6hFIXgSTuffFbqdUahyy9pFSRuizZoTUijDrVlAE NuwWMgoUNzmKA6fF4eRPYoRSqudIngdQokdj2hMCL ddCOrs5F8zWQaRUOskzQizUSkmB2nMZF1HQbetkMs izufx3TspCmixpA7SOLuivSnwXbklZdvaf2tTPBaf MQxIFBahcOlJKV8KLNmg56gJ9eyRBS9 GROSS DESCRIPTION (test code = 3366) o7nwjIPtPOAuaSU2AhXtZOPnt3t lx6FykIMrgZSbF [file] iBELiBSZWNlaXZlZCBmcmVzaCBsYWJlbGVkIHdpdG oqvKszGXWruUjzphSjfvRgSP3pRMRkS2Opa2Fku06 vlkTbPhUvXVKiQHXijOmubRwlsm7aXDluo8XmEN6n fClaZHybm2D9mq5ljMhsw37oimlkq3zaJZ41IIpeg 0JbwTnpthX9TrKlcuGmIHWpLNA9RLHiVwK4XJPmCX HxdPakJjwxX7tkVNzfmiBdkTlajwAghmUseEUqtXL vyKBzsYQ5NJBhtT0laGCiHVHvuWdcYNO5QZJfiIrr z2sjSiBdcDa3fxL4zQ1fLCogVVKaLutoOTYkfCOyK DSoAATaK2IudfXcLNJxOQFyUJwaVpMuTSMil1b5pI L9oAWjjZJ1tFPakJtoCN5mzMCiWQRpQ5Udy2dmzvF omF0gUJHeCL4kTOOptR9lnZRtx0MjIPGotJXjBXPm lzUfTIJsdBF3kT8eHOqzUOzlMYPxXQ2gYHqgFK89D DrwOI55WPWsVQNkreK0ERc0cIHwLU0xBIJyLJQwSL XcxXWqd6GaTbYwPXFtxeU7XX1cx0t8fDQdlmIiwhV zl8MwJfPfrAruPX07IBNfZAYoajUdGIVmro3dPO9n mMHgVBJbXFJcwVNknA6hrtWdetJqsIXfD6WuQSGfx wLpe7EidMf6jJGzMBkjVAj8lfTrxbIjtqP1jATvbj EAZM2sKrkhSOexjJRppY== MICROSCOPIC DESCRIPTION (test code = i5znwMBqNVEzgRW4VePvCHWgr4f ut5PcdHLxoDQmJ 3379) PeurJVkbdByrb17vKQ9vJ58IH3qPKRiPyL9UQXxot R5Grg9CWYkTVYhjWFcE144q7cpi0lndgYucCM1aGu kMSQtKDEsDZnsYFNjUjTiDQFyZr8szRCfXxbjUJG5 SPECIAL STUDIES (test code = 3376) z3jeyWAjCPXjxUI2LfMkCMBmk9znd3Pl dHBncGFyX [file] nAi1oLAAubxmnfXWhuMohEs0jgWJmkO== Gross assessment was performed at [facility], (test code = 2777) Department of Pathology, [address] [place] [address], Technical component was performed at [facility], (test code = 2778) Department of Pathology, [address] [place] [address], Professional component was performed [facility], at (test code = 2779) Department of Pathology, [address] [place] [address], [facility] [id number] 19:59:00Surgical Pathology Report Case: [id number] Authorizing Provider: Zain Miguel Angel Collected: 02/16/2020 03:27 PM Deepti Abad MD OrderingLocation: [facility] Received: 02/16/2020 04:41 PM PERIOPERATIVE SERVICES Pathologist: Dean Lucia MD Specimens: A) - Lung, Left, Left Lingular Segmentectomy B) - Lymph Node, Interlobar, Left, Station 11L C) - LymphNode, Interlobar, Left, Station 11L, Station 11L #2 D) - Lymph Node, Subaortic (Aorto-Pulmonary Window), Station 5 E) - Lymph Node,Subcarinal, Station 7 A. LUNG, LEFT LINGULA, SEGMENTECTOMY: - INVASIVE ADENOCARCINOMA, ACINAR PREDOMINANT ~ GREATEST TUMOR DIMENSION: 1.5 CM ~ TUMOR FOCALLY INVOLVES THE SURFACE OF VISCERAL PLEURA, PL2 (SEE COMMENT) ~ PARENCHYMAL MARGIN FREE, 2.7 CM ~ NO LYMPHOVASCULAR INVASION IDENTIFIED ~ NO PERINEURAL INVASION IDENTIFIED ~ PATHOLOGIC STAGE CLASSIFICATION (pTNM, AJCC 8th Edition): pT2 pN0 pMX -TWO NEUROENDOCRINE TUMORLETS, 0.2 CM AND 0.3 CM IN GREATEST DIMENSION (SEE COMMENT)B. LYMPH NODE, LEFT INTERLOBR STATION 11L, BIOPSY: - ONE BENIGN LYMPH NODE (0/1)C. LYMPH NODE, LEFT INTERLOBR STATION 11L, BIOPSY: - ONE BENIGN LYMPH NODE (0/1)D. LYMPH NODE, SUBAORTIC STATION 5, BIOPSY: - ONE BENIGN LYMPH NODE (0/1)E. LYMPH NODE, SUBCARINAL STATION 7, BIOPSY: - ONE BENIGN LYMPH NODE (0/1)Signing Pathologist Direct Phone Line: [phone] signed by Dean Lucia MD on 02/20/2020 at 7:59 PMA. Block A4: small foci of the tumor present on the visceral pleura surface, which stain positive for TTF-1 and negative for calretinin. These findings are consistent with focal visceral pleura involvement by carcinoma. Block A7: two small foci of nested neuroendocrine cells (0.2 and 0.3 cm)are present around area of scar tissue. They stain positive with Synaptophysin and chromogranin and are consistent with neuroendocrine tumorlets. INTRADEPARTMENTAL CONSULTATION: - Shukri Leiva MD has seen slides A 4 and A7 with immunostains and EVG and agrees with the diagnosis. LUNG (LUNG: RESECTION - A)8th Edition - Protocol posted: 05/28/2019SPECIMEN Procedure: SegmentectomySpecimen Laterality: Left TUMOR Tumor Site: Upper lobe of lung: lingula Tumor Site: Not specified Histologic Type: Invasive adenocarcinoma, acinar predominant Other Subtypes Present: lepidic Histologic Grade: G2: Moderately differentiated Spread Through Air Spaces (LUIS): Not identified Tumor Size: Total Tumor Size (size of entire tumor): GreatestDimension (Centimeters): 1.5 cm Size of Invasive Component: Greatest Dimension (Centimeters):1.1 cm Tumor Focality: Single focus Visceral Pleura Invasion: Present Direct Invasion of Adjacent Structures: No adjacent structures present Treatment Effect: No known presurgical therapy Lymphovascular Invasion: Not identified MARGINS Margins: All margins are uninvolved by tumor Margins Examined: Parenchymal Distance of Invasive Carcinoma from Closest Margin (Centimeters): 2.7 cm Closest Margin: Parenchymal LYMPH NODES Number of Lymph Nodes Involved: 0 Number of Lymph Nodes Examined: 4 Ramin Stations Examined: 7: Subcarinal Ramin Stations Examined: 5: Subaortic/ aortopulmonary (AP) / AP window Ramin Stations Examined: 11L: Interlobar PATHOLOGIC STAGE CLASSIFICATION (pTNM, AJCC 8th Edition) Primary Tumor (pT): pT2 Regional Lymph Nodes (pN): pN0 ADDITIONAL FINDINGS Additional Findings: harriet roendocrine tumorlets 20061, 70002 x 4, 18616, 00456 x 2, 50114 x 2carcinoma of lung, leftLung, left, lymph node intralobular left station 11L, lymph node intralobular left station 11L, lymph node subaortic (aortopulmonary window) station 5, and lymph node subcarinal station 7A. Received fresh labeledwith the patient's name, accession number and "lung, left lingular segment segmentectomy" is a 36 gmafter formalin fixation, 9.0 x 7.0 x 3.3 cm segmentectomy with an 11.2 cm linear staple line. The pleura is brown-carlos to pink, congested, displays a 1.5 x 0.6 cm area of puckering and a 0.5 x 0.4 cm nodule.Upon serial sectioning, a 1.5 x 1.2 x 0.9 cm, white, firm mass is identified immediately underlying the focus of puckering that abuts the pleura and is 2.7 cm from the closest resection margin. A second 0.3 x 0.3 x 0.3 cm, white firm nodule is identified underneath the pleura that is 0.5 cm from the mass, and 3.0 cm from the closest resection margin. The remaining uninvolved parenchyma is carlos-red and spongy.D[employer] Abuse Treatment Specialist sections are submitted.Ink code:Yellow-resection marginBlue-pleura overlying puckeringSection code:A1-margin, en face A2-A6-mass serially sectioned, entirely A7- pleural and parenchymal nodulesA8-uninvolved parenchymaB. Received fresh labeled with the patient's name, accession number and "lymph node, intralobular, left, station 11L" is a 0.8 x 0.5 x 0.3 cm, black, irregulartissue fragment submitted in its entirety following filtration in B1.C. Received fresh labeled with the patient's name, accession number and "lymph node, intralobular, left, station 11L #2" is a 0.8 x 0.6 x 0.3 cm, black, irregular tissue fragment submitted in its entirety following filtration in C1.D. Received fresh labeled with the patient's name, accession number and "lymph node, subaortic (aorto-pulmonary window), station 5" is a 1.9 x 1.3 x 0.5 cm, black, irregular fragment submitted in its entirety following filtration in D1.E. Received fresh labeled with the patient's name, accession number and "lymph node, subcarinal, station 7" is a 1.0 x 0.5 x 0.5 cm, kauffman lymph node. The cut surface is carlos with anthracotic pigment and is heterogenous. The specimen is bisected and submitted in its entirety in E1. JG/ewPerformed.The interpretation of this case included the use of immunohistochemistry orspecial stains.Block A5TTF1- positive in tumorBlock A4 - EVG, TTF-1, CalretininThe tumor cell stain positive for TTF-1 and the tumor cells on the visceral pleura are positive for TTF1 and negative forcalretininEVG highlights tumor at external elastic layer of the pleura; however invasion through theelastic layer is not identified.Block A7- Synaptophysin, ChromograninThe two small tumorlets stain po sitive for synaptophysin and chromogranin. Control Slides Examined: In-house known positive controls were evaluated along with the test tissue. These control slides run alongside of the patients sample show appropriate staining. Internal positive and negative controls when available are evaluated Imm unohistochemistry technical testing was performed at [facility], Pathology Laboratory where it was developed and its performance characteristics were determined. It has not been cleared or approved by the U.S. Food and Drug Administration. The FDA has determined that such clearance or approval is not necessary. The test is used for clinical purposes. It should not be regarded asinvestigational or for research. This laboratory is certified under the Clinical Laboratory Improvement Amendments of 1988 (CLIA-88) as qualified to perform high complexity clinical laboratory testing.[facility], Department of Pathology, [address] [place], [place] [id number], [facility], [address] [place] [address], [facility] of [facility], [address] [place] [address], WJU, CHEST, 1 VIEW, NON [id number] 09:25:00Reason for exam:->s/p left VATS lingulectomyShould this be performed at the bedside?->[facility] : 1950 Sex: FFINAL REPORT CLINICAL HISTORY: s/p left VATS lingulectomy TECHNIQUE: 1 view of the chest. COMPARISON: 02/17/2020 IMPRESSION: Focal opacity around left perihilar chain sutures is unchanged. A small left pleural effusion is unchanged. The right lung remains well-aerated. The cardiomediastinal silhouette is magnified by technique. There is no pneumothorax. Signed: Regis Huerta Verified Date/Time: 02/18/2020 09:25:45 Reading Location: [facility] Radiology Reading Room XR chest 1 view portable / [id number] 09:25:00 Interface, External Ris In - 02/18/2020 9:27 AM CSTFINAL REPORT CLINICAL HISTORY: s/p left VATS lingulectomy TECHNIQUE: 1 view of the chest. COMPARISON: 02/17/2020 IMPRESSION: Focal opacity around left perihilar chain sutures is unchanged. A small left pleural effusion is unchanged. The right lung remains well-aerated. The cardiomediastinal silhouette is magnified by technique. There is no pneumothorax. Signed: Regis Huerta Verified Date/Time: 02/18/2020 09:25:45 Reading Location: [facility] Radiology [facility], NON [id number] 14:20:00Reason for exam:->CT removal [facility] 1950 Sex: FFINAL REPORT CLINICAL HISTORY: CT removal TECHNIQUE: 1 view of the est. COMPARISON: 02/17/2020 IMPRESSION: The left chest tube has been removed. There is no definite pneumothorax. Focal opacity surrounding left perihilar chain sutures is unchanged. A trace left pleural effusion is again seen. The right lung remains relatively well-aerated. There is no significant card iomegaly. Left shoulder hardware is again seen. Signed: Regis Huerta MDReport Verified Date/Time: 02/17/2020 14:20:04 Reading Location: [facility] Radiology Reading Room Electronically signedby: REGIS HUERTA M.D. on 02/17/2020 02:20 PMRAD, CHEST, 1 VIEW, NON [id number] 04:37:00Reason for exam:->s/p left VATS lingulectomyShould this be performed at the bedside?->Yes[facility] : 1950 Sex: FFINAL REPORT Chest one view. Clinical history: s/p left VATS lingulec raine Comparison: Chest radiograph 02/16/2020. Technique: A single frontal view of the chest was obtained. Findings:There is a left chest tube with tip in the left lung apex.The cardiomediastinal contours are stable. There are surgical sutures in the left perihilar region. There is opacity in the leftperihilar region compatible with subsegmental/discoid atelectasis. There is a small left pleural effusion. There is no pneumothorax. There is a left total shoulder arthroplasty with a glenoid screw. Signed: Dakota Vegaeport Verified Date/Time: 02/17/2020 04:37:09 Basic Metabolic [id number] 03:58:00 Test Item Value Reference Range Interpretation Comments Sodium (test code = 137 meq/L 375-444 5299-2) Potassium (test code = 4.5 meq/L 3.5-5.1 2823-3) Chloride (test code = 104 meq/L 98-107 2075-0) CO2 (test code = 27 meq/L 22-29 8-9) BUN (test code = 11 mg/dL 7-21 3094-0) Creatinine (test code 0.75 mg/dL 0.57-1.25 = 2160-0) Glucose (test code = 112 mg/dL 70-105 H 2345-7) Calcium (test code = 8.7 mg/dL 8.4-10.2 35677-9) EGFR (test code = 77 mL/min/1.73 [place] [address]-6) NOT ACCURATE CREATININE CLEARANCE IN PREDICTING GLOMERULAR FILTRATION RATE . ESTIMATED GFR I S NOT APPLICABLE FOR DIALYSIS PATIENTS. JOE (test code = JOE) [facility] ID - EDASI Lab Interpretation Abnormal (test code = 64206-3) [facility]58:00 Test Item Value Reference Range Interpretation Comments Magnesium (test code = 1.9 mg/dL 1.6-2.6 23819-6) JOE (test code = JOE) [facility] Cook ID - EDASI Lab Interpretation (test Normal code = 40502-0) [facility]ABOLIC [id number] 03:58:00 Test Item Value Reference Range Interpretation Comments SODIUM (BEAKER) 137 meq/L 136-145 (test code = 381) POTASSIUM (BEAKER) 4.5 meq/L 3.5-5.1 (test code = 379) CHLORIDE (BEAKER) 104 meq/L 98-107 (test code = 382) CO2 (BEAKER) (test 27 meq/L 22-29 code = 355) BLOOD UREA NITROGEN 11 mg/dL 7-21 (BEAKER) (test code = 354) CREATININE (BEAKER) 0.75 mg/dL 0.57-1.25 (test code = 358) GLUCOSE RANDOM 112 mg/dL 70-105 H (BEAKER) (test code = 652) CALCIUM (BEAKER) 8.7 mg/dL 8.4-10.2 (test code = 697) EGFR (BEAKER) (test 77 mL/min/1.73 ESTIMA AMARIS GFR IS code = 1092) sq m NOT ACCURATE CREATININE CLEARANCE IN PREDICTING GLOMERULAR FILTRATION RATE . ESTIMATED GFR I S NOT APPLICABLE FOR DIALYSIS PATIEN TS. [facility] [facility] [employer] ID - [id number] 03:58:00 Test Item Value Reference Range Interpretation Comments MAGNESIUM (BEAKER) (test code = 1.9 mg/dL 1.6-2.6 627) [facility] [employer] ID - EDASICBC with platelet count + automated [id number] 03:56:00 Test Item Value Reference Range Interpretation Comments WBC (test code = 6690-2) 7.3 See_Comment [A utomated message] The system [employer] generated this result transmitted ref erence range: 3.5 - 10 .5 K/L. The refe rence range was not u sed to interpret this result as normal/abnor mal. RBC (test code = 789-8) 3.85 See_Comment L [Au tomated message] The system [employer] generated this result transmitted ref erence range: 3.93 - 5 .22 M/L. The refe rence range was not u sed to interpret this result as normal/abnor mal. MCHC (test code = 786-4) 32.9 See_Comment L [A utomated message] The system [employer] generated this result transmitted ref erence range: 32.2 - 3 5.5 GM/DL. The refe rence range was not u sed to interpret this result as normal/abnor mal. Hematocrit (test code = 33.7 % 34.1-44.9 L 4544-3) MCV (test code = 787-2) 87.5 fL 79.4-94.8 MCH (test code = 785-6) 28.8 pg 25.6-32.2 RDW (test code = 788-0) 12.2 % 11.7-14.4 Platelets (test code = 179 See_Comment [Aut omated message] 777-3) The system [employer] generated this result transmitted ref erence range: 150 - 45 0 K/CU MM. The referen ce range was not u sed to interpret this result as normal/abnor mal. MPV (test code = 9.9 fL 9.4-12.3 98877-1) nRBC (test code = 413) 0 See_Comment [Aut omated message] The system [employer] generated this result transmitted ref erence range: 0 - 0 /1 00 WBC. The refere nce range was not u sed to interpret this result as normal/abnor mal. % Neutros (test code = 83 % 429) % Lymphs (test code = 12 % 430) % Monos (test code = 4 % 431) % Eos (test code = 432) 0 % % Baso (test code = 437) 0 % # Neutros (test code = 6.06 See_Comment [Aut omated message] 670) The system [employer] generated this result transmitted ref erence range: 1.56 - 6 .13 K/L. The refe rence range was not u sed to interpret this result as normal/abnor mal. # Lymphs (test code = 0.85 See_Comment L [Auto mated message] 414) The system [employer] generated this result transmitted ref erence range: 1.18 - 3 .74 K/L. The refe rence range was not u sed to interpret this result as normal/abnor mal. # Monos (test code = 0.32 See_Comment [Autom ated message] 415) The system [employer] generated this result transmitted ref erence range: 0.24 - 0 .36 K/L. The refe rence range was not u sed to interpret this result as normal/abnor mal. # Eos (test code = 416) 0.01 See_Comment L [Au tomated message] The system [employer] generated this result transmitted ref erence range: 0.04 - 0 .36 K/L. The refe rence range was not u sed to interpret this result as normal/abnor mal. # Baso (test code = 417) 0.01 See_Comment [A utomated message] The system [employer] generated this result transmitted ref erence range: 0.01 - 0 .08 K/L. The refe rence range was not u sed to interpret this result as normal/abnor mal. Immature 0 % 0-1 Granulocytes-Relative (test code = 2801) Lab Interpretation (test Abnormal code = 71840-4) [facility] W/PLT COUNT & AUTO [id number] 03:56:00 Test Item Value Reference Range Interpretation Comments WHITE BLOOD CELL COUNT (BEAKER) 7.3 K/ L 3.5-10.5 (test code = 775) RED BLOOD CELL COUNT (BEAKER) 3.85 M/ L 3.93-5.22 L (test code = 761) HEMOGLOBIN (BEAKER) (test code = 11.1 GM/DL 11.2-15.7 L 410) HEMATOCRIT (BEAKER) (test code = 33.7 % 34.1-44.9 L 411) MEAN CORPUSCULAR VOLUME (BEAKER) 87.5 fL 79.4-94.8 (test code = 753) MEAN CORPUSCULAR HEMOGLOBIN 28.8 pg 25.6-32.2 (BEAKER) (test code = 751) MEAN CORPUSCULAR HEMOGLOBIN CONC 32.9 GM/DL 32.2-35.5 (BEAKER) (test code = 752) RED CELL DISTRIBUTION WIDTH 12.2 % 11.7-14.4 (BEAKER) (test code = 412) PLATELET COUNT (BEAKER) (test 179 K/CU MM 150-450 code = 756) MEAN PLATELET VOLUME (BEAKER) 9.9 fL 9.4-12.3 (test code = 754) NUCLEATED RED BLOOD CELLS 0 /100 WBC 0-0 (BEAKER) (test code = 413) NEUTROPHILS RELATIVE PERCENT 83 % (BEAKER) (test code = 429) LYMPHOCYTES RELATIVE PERCENT 12 % (BEAKER) (test code = 430) MONOCYTES RELATIVE PERCENT 4 % (BEAKER) (test code = 431) EOSINOPHILS RELATIVE PERCENT 0 % (BEAKER) (test code = 432) BASOPHILS RELATIVE PERCENT 0 % (BEAKER) (test code = 437) NEUTROPHILS ABSOLUTE COUNT 6.06 K/ L 1.56-6.13 (BEAKER) (test code = 670) LYMPHOCYTES ABSOLUTE COUNT 0.85 K/ L 1.18-3.74 L (BEAKER) (test code = 414) MONOCYTES ABSOLUTE COUNT (BEAKER) 0.32 K/ L 0.24-0.36 (test code = 415) EOSINOPHILS ABSOLUTE COUNT 0.01 K/ L 0.04-0.36 L (BEAKER) (test code = 416) BASOPHILS ABSOLUTE COUNT (BEAKER) 0.01 K/ L 0.01-0.08 (test code = 417) IMMATURE GRANULOCYTES-RELATIVE 0 % 0-1 PERCENT (BEAKER) (test code = 2801) RAD, CHEST, 1 VIEW, NON [id number] 17:03:00Reason for exam:->s/p left lingulectomy, chest tube placementShould [facility] : 1950 Sex: FFINAL REPORT Chest, 1 view. History: Status post left lingulectomy, ch est tube placement. Comparison: 02/13/2020. IMPRESSION: Left-sided chest tube identified with tip terminating over the left apex. There are interval postsurgical changes compatible with reported history of lingulectomy with suture material identified projecting over the left mid hemithorax. Trace left- sided pleural effusion noted. Increased opacities noted within the left mid and lower lung zones which likely reflect atelectasis. There is no evidence for large focal consolidation or pneumothorax. The cardiomediastinal silhouette is stable in appearance. Partially visualized left shoulder prosthesis again noted. No acute osseous abnormality is identified. Signed: Zay Ordaz MDReport Verified Date/Time: 02/16/2020 17:03:06 Reading Location: [facility] [id number] Consult Reading Room Electronicallysigned by: ZAY ORDAZ MD on 02/16/2020 05:03 luis [id number] 11:08:00 Test Item Value Reference Range Interpretation Comments ABO Grouping (test code = 2588) A Rh Factor (test code = 2589) [facility] [id number] 10:35:00 Test Item Value Reference Range Interpretation Comments POC-Glucose Meter (test 92 mg/dL 70-110 : TE STED AT [facility] code = 1538) [address] [place] [facility] 770 30: Boarding House Cook/Techni sung ID = [id number] for Leonie Aleman Lab Interpretation (test Normal code = 63955-6) [facility] [id number] 10:35:00 Test Item Value Reference Range Interpretation Comments POC-GLUCOSE METER 92 mg/dL 70-110 : TESTED A T [facility] 6720 (BEAKER) (test code = [facility], 1538) [address]: Boarding House Cook/Techni sung ID = [id number] for Sulma chanoLeonie [id number] 00:00:00Ordered by an unspecified provider.[facility] (Asymptomatic ONLY)2020-02-14 07:53:00 Test Item Value Reference Range Interpretation Comments SARS-COV2/RT-PCR Negative Not Detected, (test code = Negative, See 64734-3) external report for linked test SARS-COV-2 [facility] FILIBERTO PERFORMING LAB (test code = 03628-0) JOE (test code = Negative result for this JOE) test determines that SARS-CoV-2 RNA was not present in the specimen above the Limit of Detection (LOD). However, Negative results do not preclude SARS-CoV-2 infection and should not be used as the sole basis for treatment or patient management decisions. Negative results must be combined with clinical observations, patient history, and epidemiological information. A false negative result may occur if a specimen is improperly collected, transported or handled. A false negative result should be considered if patient's recent exposures or clinical presentation indicate that COVID-19 (SARS-CoV-2) is likely and diagnostic tests for other causes of illness are negative. Re-testing should be considered in cases of suspected false negatives. The limit of detection for this assay is 100 copies/mL. This SARS CoV-2 test is a real-time RT-PCR test intended for the qualitative detection of nucleic acid from SARS-CoV-2 in a nasopharyngeal swab specimen collected from individuals suspected of COVID-19 by their healthcare provider. This test has not been Food and Drug Administration (FDA) cleared or approved. This is a modified version of an approved Emergency Use Authorization (EUA) and is in the process of review by the FDA. Once authorized by the FDA, the issued EUA will be effective until the declaration that circumstances exist justifying the authorization of the emergency use of in vitro diagnostic tests for detection and/or diagnosis of COVID-19 is terminated under Section 564(b)(2) of the Act or the EUA is revoked under Section 564(g) of the Act. Testing was performed using the Diassess SARS-CoV-2 assay. Fact Sheet for Healthcare Providers:https://www.Work Inspire/andrea/RT_SA MY-MoQ-5_WNW_Ducl_Nlbpj_ 51-507579.pdf Fact Sheet for Healthcare Patients:https://www.bigtincan/andrea/RT_SAR V-CoY-5_Yzznews_Mzmd_Aub et_EN_51-308434S4.pdf Performing Laboratory:[place] [address] [place], [place] [address] [place], [place] [address]ARS-COV2/RT-PCR ([facility])2020-02-14 07:53:00 Test Item Value Reference Range Interpretation Comments SARS-COV2/RT-PCR (test Negative Not Detected, Negative, code = 5185899) See external report for linked test SARS-COV-2 PERFORMING LAB [facility] FILIBERTO (test code = 9007126) Negative result for this test determines that SARS-CoV-2 RNA was not present in the specimen above the Limit of Detection (LOD). However, Negative results do not preclude SARS-CoV-2 infection and should not be used as the sole basis for treatment or patient management decisions. Negative results mustbe combined with clinical observations, patient history, and epidemiological information. A false negative result may occur if a specimen is improperly collected, transported or handled. A false negative result should be considered if patient's recent exposures or clinical presentation indicate that COVID-19 (SARS-CoV-2) is likely and diagnostic tests for other causes of illness are negative. Re-testing should be considered in cases of suspected false negatives.The limit of detection for this assay is 100 copies/mL.This SARS CoV-2 test is a real-time RT-PCR test intended for the qualitative detection of nucleic acid from SARS-CoV-2 in a nasopharyngeal swab specimen collected from individuals susp ected of COVID-19 by their healthcare provider.This test has not been Food and Drug Administration (FDA) cleared or approved. This is a modified version of an approved Emergency Use Authorization (EUA) and is in the process of review by the FDA. Once authorized by the FDA, the issued EUA will be effective until the declaration that circumstances exist justifying the authorization of the emergency use of in vitro diagnostic tests for detection and/or diagnosis of COVID-19 is terminated under Section 564(b)(2) of the Act or the EUA is revoked under Section 564(g) of the Act.Testing was performed using the Hayden SARS-CoV-2 assay.Fact Sheet for Healthcare Providers:https://www.molecular.hayden/andrea/ RL_OKYI-AzJ-2_RLE_Ovln_Skrpx_12-883857.pdfFact Sheet for Healthcare Patients:https://www.molecular.ab jatin/andrea/[place]_DWTW-RtI-5_Erowzym_Fort_Ipvkf_UT_60-728112N5.pdfPerforming Laboratory:[facility] [place], [place] [address] [place] [address] Type and screen, [id number] 17:09:00 Test Item Value Reference Range Interpretation Comments ABO/RH AUTOMATED (BEAKER) (test A POSITIVE code = 2260) Ab Scrn (test code = 890-4) NEGATIVE [facility] HospitalElectrocardiogram, [id number] 17:00:36 Interface, External Ris In - 02/13/2020 5:00 PM CSTVentricular Rate 67 BPMAtrial Rate 67 BPMP-R Interval 188 msQRS Duration 70 msQ-T Interval 382 msQTC Calculation(Bazett) 403 msP [place] 77 degreesR [place] 57 degreesT [place] 46 degreesNormal sinus rhythmNormal ECGNo previous ECGs availableConfirmed by [facility] [place] hopkins Roberto ([id number]) on 02/13/2020 5:00:35 [facility] CenterCom[facility] [id number] 16:28:00 Test Item Value Reference Range Interpretation Comments Protein, Total (test 6.9 See_Comment [Autom ated code = 2885-2) message] The system which generated this result transmit amaris reference range : 6.0 - 8.3 gm/dL . The reference range was not u sed to interpret th is result as normal/abnormal . Albumin (test code = 4.4 g/dL 3.5-5 60065-9) Alkaline Phosphatase 63 U/L 40-150 (test code = 6768-6) Total Bilirubin (test 0.4 mg/dL 0.2-1.2 code = 1974-2) Sodium (test code = 139 meq/L 617-657 5385-2) Potassium (test code 3.9 meq/L 3.5-5.1 = 2823-3) Chloride (test code = 101 meq/L 98-107 2075-0) CO2 (test code = 30 meq/L 22-29 H 2027-9) BUN (test code = 15 mg/dL 7-21 3094-0) Creatinine (test code 0.88 mg/dL 0.57-1.25 = 2160-0) Glucose (test code = 111 mg/dL 70-105 H 2345-7) Calcium (test code = 9.8 mg/dL 8.4-10.2 20477-3) AST (test code = 18 U/L 5-34 1920-8) ALT (test code = 17 U/L 6-55 1742-6) EGFR (test code = 64 mL/min/1.73 [place] [address]-3) NOT ACCURATE CREATININE CLEARANCE IN PREDICTING GLOMERULAR FILTRATION RATE . ESTIMATED GFR I S NOT APPLICABLE FOR DIALYSIS PATIEN TS. JOE (test code = JOE) Boarding House Cook ID - ADMIN Lab Interpretation Abnormal (test code = 39866-3) [facility] HospitalCOMPREHENSIVE METABOLIC [id number] 16:28:00 Test Item Value Reference Range Interpretation Comments TOTAL PROTEIN 6.9 gm/dL 6.0-8.3 (BEAKER) (test code = 770) ALBUMIN (BEAKER) 4.4 g/dL 3.5-5.0 (test code = 1145) ALKALINE PHOSPHATASE 63 U/L 40-150 (BEAKER) (test code = 346) BILIRUBIN TOTAL 0.4 mg/dL 0.2-1.2 (BEAKER) (test code = 377) SODIUM (BEAKER) (test 139 meq/L 136-145 code = 381) POTASSIUM (BEAKER) 3.9 meq/L 3.5-5.1 (test code = 379) CHLORIDE (BEAKER) 101 meq/L 98-107 (test code = 382) CO2 (BEAKER) (test 30 meq/L 22-29 H code = 355) BLOOD UREA NITROGEN 15 mg/dL 7-21 (BEAKER) (test code = 354) CREATININE (BEAKER) 0.88 mg/dL 0.57-1.25 (test code = 358) GLUCOSE RANDOM 111 mg/dL 70-105 H (BEAKER) (test code = 652) CALCIUM (BEAKER) 9.8 mg/dL 8.4-10.2 (test code = 697) AST (SGOT) (BEAKER) 18 U/L 5-34 (test code = 353) ALT (SGPT) (BEAKER) 17 U/L 6-55 (test code = 347) EGFR (BEAKER) (test 64 mL/min/1.73 ESTIMA AMARIS GFR IS code = 1092) sq m NOT ACCURATE CREATININE CLEARANCE IN PREDICTING GLOMERULAR FILTRATION RATE . ESTIMATED GFR I S NOT APPLICABLE FOR DIALYSIS PATIEN TS. Boarding House Cook ID - ADMINRAD, CHEST, 2 [id number] 16:27:00Reason for exam:->pre-op evaluation Should this be performed at the bedside?->Yes [facility] : 1950 Sex: FFINAL REPORT TECHNIQUE: Frontal and lateral views of the chest. INDICA TION: 69-year-old woman for preoperative evaluation. COMPARISON: None. FINDINGS: LINES/TUBES: None.LUNGS: Lungs are well inflated. No consolidation or pulmonary edema. 1 x 1.2 cm nodule projects overthe left midlung zone, likely in the left upper lobe. PLEURA: No pleural effusion or pneumothorax. HEART AND MEDIASTINUM: Cardiomediastinal silhouette is within normal limits. BONES AND SOFT TISSUES: Mild degenerative changes of the thoracic spine. Partially visualized left shoulder prosthesis. Soft tissues are unremarkable. IMPRESSION:1.2 cm nodule projects over the left midlung zone, likely in theleft upper lobe. If indicated, chest CT may be obtained for further evaluation. Signed: Jose Salinas MDReport Verified Date/Time: 02/13/2020 16:27:36 PT/aPTT 2020-02-13 16:24:00 Test Item Value Reference Interpretation Comments Range Protime (test code = 13.6 See_Comment [Autom ated 5902-2) message] The system which generated this result transmitted reference range : 11.9 - 14.2 seconds. The reference range was not used to interpret this result as normal/abnormal . INR (test code = 1.07 See_Comment [Automated 8581-6) message] The system which generated this result transmitted reference range : <=5.90. The reference range was not used to interpret this result as normal/abnormal . PTT (test code = 28.1 See_Comment [Automated 32231-9) message] The system which generated this result transmitted reference range : 22.5 - 36.0 seconds. The reference range was not used to interpret this result as normal/abnormal . JOE (test code = Effective 08/28/2018: JOE) PT Reference Range ChangeNew: 11.9-14.2 Previous: 11.7-14.7 RECOMMENDED COUMADIN/WARFARIN INR THERAPY RANGESSTANDARD DOSE: 2.0-3.0 Includes: PROPHYLAXIS for venous thrombosis, systemic embolization; TREATMENT for venous thrombosis and/or pulmonary embolus.HIGH RISK: Target INR is 2.5-3.5 for patients wiht mechanical heart valves. Lab Interpretation Normal (test code = 31535-9) [facility] HospitalPT/[id number] 16:24:00 Test Item Value Reference Range Interpretation Comments PROTIME (BEAKER) (test code = 13.6 seconds 11.9-14.2 759) INR (BEAKER) (test code = 370) 1.07 <=5.90 PARTIAL THROMBOPLASTIN TIME 28.1 seconds 22.5-36.0 (BEAKER) (test code = 760) Effective 08/28/2018: PT Reference Range ChangeNew: 11.9-14.2 Previous: 11.7- 14.7RECOMMENDED COUMADIN/WARFARIN INR THERAPY RANGESSTANDARD DOSE: 2.0-3.0 Includes: PROPHYLAXIS for venous thrombosis, systemic embolization; TREATMENT for venous thrombosis and/or pulmonary embolus.HIGH RISK: Target INR is2.5-3.5 for patients wiht mechanical heart valves.CBC W/PLT COUNT & AUTO [id number] 16:10:00 Test Item Value Reference Range Interpretation Comments WHITE BLOOD CELL COUNT (BEAKER) 6.7 K/ L 3.5-10.5 (test code = 775) RED BLOOD CELL COUNT (BEAKER) 4.33 M/ L 3.93-5.22 (test code = 761) HEMOGLOBIN (BEAKER) (test code = 12.1 GM/DL 11.2-15.7 410) HEMATOCRIT (BEAKER) (test code = 38.8 % 34.1-44.9 411) MEAN CORPUSCULAR VOLUME (BEAKER) 89.6 fL 79.4-94.8 (test code = 753) MEAN CORPUSCULAR HEMOGLOBIN 27.9 pg 25.6-32.2 (BEAKER) (test code = 751) MEAN CORPUSCULAR HEMOGLOBIN CONC 31.2 GM/DL 32.2-35.5 L (BEAKER) (test code = 752) RED CELL DISTRIBUTION WIDTH 12.3 % 11.7-14.4 (BEAKER) (test code = 412) PLATELET COUNT (BEAKER) (test 187 K/CU MM 150-450 code = 756) MEAN PLATELET VOLUME (BEAKER) 10.4 fL 9.4-12.3 (test code = 754) NUCLEATED RED BLOOD CELLS 0 /100 WBC 0-0 (BEAKER) (test code = 413) NEUTROPHILS RELATIVE PERCENT 68 % (BEAKER) (test code = 429) LYMPHOCYTES RELATIVE PERCENT 25 % (BEAKER) (test code = 430) MONOCYTES RELATIVE PERCENT 5 % (BEAKER) (test code = 431) EOSINOPHILS RELATIVE PERCENT 1 % (BEAKER) (test code = 432) BASOPHILS RELATIVE PERCENT 1 % (BEAKER) (test code = 437) NEUTROPHILS ABSOLUTE COUNT 4.55 K/ L 1.56-6.13 (BEAKER) (test code = 670) LYMPHOCYTES ABSOLUTE COUNT 1.67 K/ L 1.18-3.74 (BEAKER) (test code = 414) MONOCYTES ABSOLUTE COUNT (BEAKER) 0.34 K/ L 0.24-0.36 (test code = 415) EOSINOPHILS ABSOLUTE COUNT 0.05 K/ L 0.04-0.36 (BEAKER) (test code = 416) BASOPHILS ABSOLUTE COUNT (BEAKER) 0.03 K/ L 0.01-0.08 (test code = 417) IMMATURE GRANULOCYTES-RELATIVE 0 % 0-1 PERCENT (BEAKER) (test code = 2801) [id number] 18:20:00 Test Item Value Reference Range Interpretation Comments PT (test code = PT) 13.5 s 12.0-14.7 [facility] [id number] 18:20:00 Test Item Value Reference Range Interpretation Comments INR (test code = INR) 1.03 1 0.85-1.17 [facility] [id number] 18:20:00 Test Item Value Reference Range Interpretation Comments PTT (test code = PTT) 28.0 s 22.9-35.8 [facility] [id number] 18:20:00Not Detected (01/26/20 1:20 PM) [facility]
--- NOTE | 2020-11-02 21:59 | RAD REPORT ---
EXAM DESCRIPTION: Yimi Single View11/02/2020 9:44 pm CLINICAL HISTORY: Dizziness COMPARISON: 2019 FINDINGS: The lungs appear clear of acute infiltrate. The heart is normal size. Mild left pleural t hickening IMPRESSION: No acute abnormalities displayed
[2020-11-02] MEDS ORDERED: NA CHLORIDE 0.9% 500 ML ONE (22:00)
[2020-11-02 22:40] LABS: ALT/SGPT 23 U/L (12-78); AST/SGOT 21 U/L (15-37); Albumin 3.9 g/dL (3.4-5.0); Alkaline Phosphatase 75 U/L (45-117); BUN Blood Urea Nitrogen 19 mg/dL (7-18); Bicarbonate 27 mmol/L (21-32); Bilirubin Direct < 0.1 mg/dL (0-0.2); Bilirubin Total 0.2 mg/dL (0.2-1.0); Glucose Level 92 mg/dL (74-106); Magnesium 2.3 mg/dL (1.8-2.4); NT PRO-BNP 303 pg/mL (<125); Potassium 4.1 mmol/L (3.5-5.1); Protein, Total 6.9 g/dL (6.4-8.2); Sodium Level 139 mmol/L (136-145); Troponin (Emerg Dept Use Only) < 0.02 ng/mL (0.0-0.045)
[2020-11-02 22:46] LABS: Absolute Lymphocytes (CBC) 1.6 K/uL (0.7-4.9); Basophils % 0.4 % (0-1.3); Hematocrit 32.1 % (36.0-45.0); Lymphocytes % 25.1 % (15.3-44.8); MPV 7.6 fL (7.6-11.3); RBC Red Blood Cell Count 3.62 M/uL (3.86-4.86)
[2020-11-02 22:47] LABS: Protime INR 0.97
--- NOTE | 2020-11-03 01:36 | ER ---
Nurse's Notes [facility] Name: Shree Rothman Age: 70 yrs Sex: Female : 1950 Arrival Date: 11/02/2020 Time: 20:39 Bed 15 Private MD: Diagnosis: Dehydration;Dizziness and giddiness;Fall on same level, unspecified Presentation: 11/02 20:50 Chief complaint: EMS states: Granddaughter heard pt fall; stated pt was moving all vg1 extremities, stated looked like a seizure, stated movement lasted less than a minute. Pt stated felt dizzy before falling, stated hit head. EMS stated no noted lesions and pt denies any pain to head. Pt also c/o LLQ and RLQ sharp pain that is intermittent. Coronavirus screen: Client denies travel out of the [place] in the last 14 days. Ebola Screen: Patient negative for fever greater than or equal to 101.5 degrees Fahrenheit, and additional compatible Ebola Virus Disease symptoms. Initial Sepsis Screen: Does the patient meet any 2 criteria? No. Patient's initial sepsis screen is negative. Does the patient have a suspected source of infection? No. Patient's initial sepsis screen is negative. Risk Assessment: Do you want to hurt yourself or someone else? Patient reports no desire to harm self or others. Onset of symptoms was November 02, 2020. 20:50 Method Of Arrival: EMS: [facility] 20:50 Acuity: DANYEL 3 vg1 Triage Assessment: 20:54 General: Appears in no apparent distress. comfortable, Behavior is calm, cooperative. vg1 Pain: Denies pain. EENT: No signs and/or symptoms were reported regarding the EENT system. Neuro: Level of Consciousness is awake, alert, obeys commands, Oriented to person, place, time, situation, Denies weakness blurred vision dizziness, headache. Cardiovascular: Patient's skin is warm and dry. Respiratory: Airway is patent Respiratory effort is even, unlabored. GI: Reports lower abdominal pain, nausea. : Reports Urine has been dark in color. Derm: Skin is intact, Skin is pink, warm \T\ dry. Musculoskeletal: Circulation, motion, and sensation intact. Historical: - Allergies: 20:54 B-12; vg1 20:54 CT contrast; vg1 - Home Meds: 20:54 gabapentin Oral [Active]; Lexapro Oral [Active]; Nexium Oral [Active]; tizanidine Oral vg1 [Active]; Trazodone Oral [Active]; - PMHx: 20:54 CHRONS; Lung Cancer; vg1 - Immunization history:: Adult Immunizations up to date. - Social history:: Smoking status: Patient denies any tobacco usage or history of. Screenin:58 Abuse screen: Denies threats or abuse. Nutritional screening: No deficits noted. vg1 Tuberculosis screening: No symptoms or risk factors identified. Fall Risk Fall in past 12 months (25 points). No secondary diagnosis (0 pts). IV access (20 points). Ambulatory Aid- None/Bed Rest/Nurse Assist (0 pts). Gait- Weak (10 pts.). Mental Status- Oriented to own ability (0 pts). Total Rivera Fall Scale indicates High Risk Score (45 or more points). Fall prevention measures have been instituted. Side Rails Up X 2 Placed Close to Nursing Station. Assessment: 20:59 Reassessment: SEE TRIAGE. vg1 Vital Signs: 20:50 BP 105 / 53; Pulse 63; Resp 16; Temp 98.1; Pulse Ox 98% ; Weight 57.61 kg; Height 5 ft. vg1 2 in. (157.48 cm); Pain 0/10; 21:48 BP 106 / 51 Supine; Pulse 58; vg1 21:50 BP 106 / 52 Sitting; Pulse 57; vg1 21:52 BP 94 / 46 Standing; Pulse 60; vg1 08/04 02:01 BP 124 / 67; Pulse 71; Resp 18; Pulse Ox 98% on R/A; ak2 08/03 20:50 Body Mass Index 23.23 (57.61 kg, 157.48 cm) vg1 ED Course: 11/02 20:39 Patient arrived in ED. ld1 20:49 Veronica Hong, RN is Primary Nurse. vg1 20:54 Triage completed. vg1 20:58 Patient has correct armband on for positive identification. Placed in gown. Bed in low vg1 position. Call light in reach. Side rails up X2. Adult w/ patient. 20:59 Arm band placed on. vg1 21:01 Bhaskar Moralez NP is PHCP. pm1 21:01 Mark Anthony Cadena MD is Attending Physician. pm1 21:43 XRAY Chest (1 view) In Process Unspecified. EDMS 21:58 Missed attempt(s): 22 gauge in right antecubital area. vg1 22:05 Initial lab(s) drawn, by me, sent to lab. vg1 22:12 Report given to ANNI Potts. vg1 11/03 02:01 No provider procedures requiring assistance completed. IV discontinued. ak2 Administered Medications: 11/02 22:23 Drug: NS 0.9% 500 ml Route: IV; Rate: bolus; Site: left antecubital; ak2 Outcome: 11/03 01:35 Discharge ordered by MD. pm1 02:01 Discharged to home ambulatory. ak2 02:01 Condition: good 02:01 Discharge instructions given to patient. 02:02 Patient left the ED. ak2 Signatures: Dispatcher [employer] EDMS Bhaskar Moralez NP MANAGER EQUIPMENT pm1 Veronica Hong RN RN 1 Oanh Owens RN RN 1 Rock Bernal ak2
--- NOTE | 2020-11-03 01:36 | EDPHYS ---
Physician Documentation [facility] Name: Shree Rothman Age: 70 yrs Sex: Female : 1950 Arrival Date: 11/02/2020 Time: 20:39 Bed 15 Private MD: ED Physician Mark Anthony Cadena HPI: 11/02 21:29 This 70 yrs old Female presents to ER via EMS with complaints of Dizziness. pm1 21:29 The patient presents with feeling faint. Onset: The symptoms/episode began/occurred pm1 today. Context: occurred at home, occurred while the patient was walking, just prior to the episode the patient experienced no apparent symptoms. Modifying factors: The symptoms are alleviated by nothing, the symptoms are aggravated by changing position. Associated signs and symptoms: The patient has no apparent associated signs or symptoms, Pertinent negatives: abdominal pain, chest pain, nausea, shortness of breath, vomiting. Severity of symptoms: in the emergency department the symptoms have improved. The patient has not experienced similar symptoms in the past. The patient has not recently seen a physician. Patient reports a history of decreased p.o. intake especially fluids. 21:29 Per EMS report patient was orthostatic on presentation. pm1 Historical: - Allergies: 20:54 B-12; vg1 20:54 CT contrast; vg1 - Home Meds: 20:54 gabapentin Oral [Active]; Lexapro Oral [Active]; Nexium Oral [Active]; tizanidine Oral vg1 [Active]; Trazodone Oral [Active]; - PMHx: 20:54 CHRONS; Lung Cancer; vg1 - Immunization history:: Adult Immunizations up to date. - Social history:: Smoking status: Patient denies any tobacco usage or history of. ROS: 21:29 Constitutional: Negative for fever, chills, and weight loss, Eyes: Negative for injury, pm1 pain, redness, and discharge, Cardiovascular: Negative for chest pain, palpitations, and edema, Respiratory: Negative for shortness of breath, cough, wheezing, and pleuritic chest pain, Abdomen/GI: Negative for abdominal pain, nausea, vomiting, diarrhea, and constipation, : Negative for injury, bleeding, discharge, and swelling, MS/Extremity: Negative for injury and deformity, Skin: Negative for injury, rash, and discoloration. 21:29 Neuro: Positive for dizziness, Negative for headache, weakness. Exam: 21:29 Constitutional: This is a well developed, well nourished patient who is awake, alert, pm1 and in no acute distress. Head/Face: Normocephalic, atraumatic. Cardiovascular: Regular rate and rhythm with a normal S1 and S2. No gallops, murmurs, or rubs. Normal PMI, no JVD. No pulse deficits. Respiratory: Lungs have equal breath sounds bilaterally, clear to auscultation and percussion. No rales, rhonchi or wheezes noted. No increased work of breathing, no retractions or nasal flaring. Abdomen/GI: Soft, non-tender, with normal bowel sounds. No distension or tympany. No guarding or rebound. No evidence of tenderness throughout. Back: No spinal tenderness. No costovertebral tenderness. Full range of motion. Skin: Warm, dry with normal turgor. Normal color with no rashes, no lesions, and no evidence of cellulitis. MS/ Extremity: Pulses equal, no cyanosis. Neurovascular intact. Full, normal range of motion. 21:29 Neuro: Exam negative for acute changes, Orientation: is normal, Mentation: is normal, Motor: is normal, moves all fours. Vital Signs: 20:50 BP 105 / 53; Pulse 63; Resp 16; Temp 98.1; Pulse Ox 98% ; Weight 57.61 kg; Height 5 ft. vg1 2 in. (157.48 cm); Pain 0/10; 21:48 BP 106 / 51 Supine; Pulse 58; vg1 21:50 BP 106 / 52 Sitting; Pulse 57; vg1 21:52 BP 94 / 46 Standing; Pulse 60; vg1 11/03 02:01 BP 124 / 67; Pulse 71; Resp 18; Pulse Ox 98% on R/A; ak2 11/02 20:50 Body Mass Index 23.23 (57.61 kg, 157.48 cm) vg1 MDM: 11/02 21:13 Patient medically screened. pm1 22:55 Refusal of service: The patient/guardian displays adequate decision making capability pm1 and despite a detailed discussion of alternatives, benefits, risks, and consequences refuses: CT Scan, Patient refused CT scan of her head and neck, and abdomen. 11/03 01:34 Data reviewed: vital signs. Data interpreted: Pulse oximetry: on room air is 98 %. pm1 Interpretation: normal. Counseling: I had a detailed discussion with the patient and/or guardian regarding: the historical points, exam findings, and any diagnostic results supporting the discharge/admit diagnosis, lab results, radiology results, the need for outpatient follow up, to return to the emergency department if symptoms worsen or persist or if there are any questions or concerns that arise at home. 01:34 ED course: Patient without any type of dizziness after patient was given IV fluids pm1 patient able to ambulate to and back from the restroom without any difficulty. 11/02 21:12 Order name: Basic Metabolic Panel; Complete Time: 22:55 pm1 11/02 21:12 Order name: CBC with Diff; Complete Time: 22:55 pm1 11/02 21:12 Order name: LFT's; Complete Time: 22:55 pm1 11/02 21:12 Order name: Magnesium; Complete Time: 22:55 pm11/02 21:12 Order name: NT PRO-BNP; Complete Time: 22:55 pm11/02 21:12 Order name: PT-INR; Complete Time: 22:55 pm1 11/02 21:12 Order name: Troponin (emerg Dept Use Only); Complete Time: 22:55 pm1 11/02 21:12 Order name: XRAY Chest (1 view); Complete Time: 22:00 pm11/02 21:12 Order name: EKG; Complete Time: 21:14 pm11/02 21:12 Order name: Cardiac monitoring; Complete Time: 22:05 pm11/02 21:12 Order name: EKG - Nurse/Tech; Complete Time: 22:05 pm11/02 21:12 Order name: IV Saline Lock; Complete Time: 22:18 pm11/03 00:00 Order name: Troponin (emerg Dept Use Only): Draw at 0030; Complete Time: :34 pm11/02 21:12 Order name: Labs collected and sent; Complete Time: 22:05 pm11/02 21:12 Order name: O2 Per Protocol; Complete Time: 21:37 pm11/02 21:12 Order name: O2 Sat Monitoring; Complete Time: 21:36 pm1 08/03 21:12 Order name: Orthostatic Blood Pressure; Complete Time: 22:18 pm1 Administered Medications: 11/02 22:23 Drug: NS 0.9% 500 ml Route: IV; Rate: bolus; Site: left antecubital; ak2 Disposition: 11/03 04:23 Co-signature as Attending Physician, Mark Anthony Cadena MD. [email or web address] Disposition Summary: 11/03/20 01:35 Discharge Ordered Location: Home pm1 Problem: new pm1 Symptoms: have improved pm1 Condition: Stable pm1 Diagnosis - Dehydration pm1 - Dizziness and giddiness pm1 - Fall on same level, unspecified pm1 Followup: pm1 - With: Emergency Department - When: As needed - Reason: Worsening of condition Followup: pm1 - With: Private Physician - When: 2 - 3 days - Reason: Recheck today's complaints, Continuance of care, Re-evaluation by your physician Discharge Instructions: - Discharge Summary Sheet pm1 - Dehydration, Elderly pm1 - Dizziness pm1 - Rehydration, Elderly pm1 Forms: - Medication Reconciliation Form pm1 - Thank You Letter pm1 - Antibiotic Education pm1 - Prescription Opioid Use pm1 Signatures: Dispatcher [employer] EDMS Bhaskar Moralez NP FAMILY PRACTICE PHYSICIAN ASSISTANT pm1 Veronica Hong RN RN 1 Mark Anthony Cadena MD MD [address] [facility]
[2020-11-03 02:07] VITALS: TEMP 98.1; O2SAT 98
[2020-11-03 02:15] VITALS: BP 124/67
--- NOTE | 2020-11-03 07:40 | EKG ---
Test Date: 2020-11-02 Test Time: 21:46:18 [employer]ic: MAMADOU MEASUREMENT RESULTS: Intervals: Rate: 57 GA: 212 QRSD: 74 QT: 430 QTc: 418 Constantia: P: 68 GA: 212 QRS: 64 T: 51 INTERPRETIVE STATEMENTS: Sinus bradycardia with 1st degree AV block Nonspecific ST and T wave abnormality Abnormal ECG Compared to ECG 06/04/2019 16:39:40 First degree AV block now present ST (T wave) deviation now present Electronically Signed On 11-03-20 07:39:45 CDT by Adilson Lacey
== END 2020-11-03 02:02 | disposition home or self-care (01) ==
LOC: ER 20:36
DX: E86.0 Dehydration (principal); W18.30XA Fall on same level, unspecified, initial encounter; Z85.118 Personal history of other malignant neoplasm of bronchus and lung; Z91.041 Radiographic dye allergy status; Z91.048 Other nonmedicinal substance allergy status
CPT/HCPCS: 93005; 85025; 80048; 36415; 83735; 85610; 80076; 84484 ×2; 83880; 71045; 99284; J7040

== ENCOUNTER 2021-12-27 07:32 | Day surgery (SDC) | payer OTHER ==
[2021-12-27] MEDS ORDERED: NA CHLORIDE 0.9% 500 ML ONE (08:18)
[2021-12-27 08:29] VITALS: BMI 24.1
[2021-12-27 08:45] LABS: MPV 7.6 fL (7.6-11.3)
[2021-12-27] MEDS ORDERED: FENTANYL CITR 100 MCG/2 ML ONE (08:46)
[2021-12-27] MEDS ORDERED: MIDAZOLAM HCL 2 MG/2 ML INJ ONE (08:46)
[2021-12-27] MEDS ORDERED: NALOXONE 0.4 MG/ML VIAL ONE (08:47)
[2021-12-27] MEDS ORDERED: FLUMAZENIL 0.1 MG/ML (5 mL VIAL) IV ONE (08:47)
[2021-12-27 09:01] LABS: Protime INR 1.01
--- NOTE | 2021-12-27 10:58 | RAD REPORT ---
EXAM DESCRIPTION: CT - Lung Biopsy Perc w/CT - 12/27/2021 10:14 am CLINICAL HISTORY: lung biopsy COMPARISON: No comparisons FINDINGS: Preoperative diagnosis: Left upper lobe nodule Post operative diagnosis: Same Conscious Sedation: 2 milligram Versed , 25 microgram fentanyl. 30 minutes of continuous [id number] time. Patient was continuously monitored by nursing staff. Contrast used: NONE Estimated blood loss: less than 5 mL Specimens: Multiple 18 gauge samples were obtained though only two had satisfactory material. The patient was placed prone on the table and the area was prepped and draped in the usual sterile f ashion. 1% lidocaine was infiltrated Postprocedure imaging demonstrated no complications. Samples were given to pathology for analysis. Th e patient tolerated the procedure without immediate complication and transferred to the recovery room in stable condition. IMPRESSION: Technically successful CT-guided core biopsy of a suspicious lesion in the left upper lo be. No immediate complications. Conscious sedation was utilized. All CT scans are performed using dose optimization technique as appropriate and may include automated exposure control or mA/KV adjustment according to patient size.
[2021-12-27 11:37] VITALS: O2SAT 98
--- NOTE | 2021-12-27 11:50 | RAD REPORT ---
EXAM DESCRIPTION: RAD - Chest Single View - 12/27/2021 11:37 am CLINICAL HISTORY: S/P LUNG BIOPSY COMPARISON: Chest Single View dated 11/02/2020; Chest Pa And Lat (2 Views) dated 06/04/2019; Chest Pa An d Lat (2 Views) dated 01/03/2018; CHEST PA AND LAT 2 VIEW dated 02/26/2012; Thorax Wo Con dated 022; Thorax Wo Con dated 12/13/2021; Thorax Wo Con dated 06/18/2020 FINDINGS: Lines: None. Lungs: No evidence of edema or pneumonia. Prior partial left upper lobe lobectomy. Pleural: No significant pleural effusions or pneumothorax. Cardiac: The heart size is within normal limits. Mediastinum: Within normal limits. Bones: No acute fractures. Left shoulder arthroplasty. Other: None IMPRESSION: No acute cardiopulmonary disease. Specifically, no appreciable pneumothorax following le ft-sided lung biopsy.
[2021-12-27 12:12] VITALS: TEMP 98.7
[2021-12-27 12:13] VITALS: BP 143/66
--- NOTE | 2021-12-27 12:21 | RAD REPORT ---
EXAM DESCRIPTION: RAD - Chest Single View - 12/27/2021 12:12 pm CLINICAL HISTORY: S/P LUNG BIOPSY COMPARISON: <Comparisons> FINDINGS: No appreciable pneumothorax identified following left-sided lung biopsy. Remainder of the findings are unchanged. . IMPRESSION: No appreciable pneumothorax following left-sided lung biopsy.
== END 2021-12-27 12:28 | disposition home or self-care (01) ==
LOC: DS 07:32
PROVIDERS: ATTEND Internal Medicine Hematology & Oncology
PROC: BB24ZZZ Computerized Tomography (CT Scan) of Bilateral Lungs (ICD-10-PCS; principal; 2021-12-27)
PROC: 0BDG4ZX Extraction of Left Upper Lung Lobe, Percutaneous Endoscopic Approach, Diagnostic (ICD-10-PCS; 2021-12-27)
DX: C34.12 Malignant neoplasm of upper lobe, left bronchus or lung (principal); D50.0 Iron deficiency anemia secondary to blood loss (chronic); D63.8 Anemia in other chronic diseases classified elsewhere; K50.918 Crohn's disease, unspecified, with other complication
CPT/HCPCS: 36415; 85049; 85610; 88305; 85730; 77012; 71045 ×2; 47000; J2250; J3010; J7040; J2310

== ENCOUNTER 2022-11-28 12:59 | Emergency (ER) | payer OTHER ==
--- OUTSIDE RECORDS SUMMARY | 2022-11-28 13:05 | XMS REPORT | Continuity of Care Document ---
:1950 Author Organization [facility] t Address [address] [place] [address]. [address] [place] [address] Care Team Providers Name Role Phone Doug Wolf DO Primary Care Physician [phone] Doug Wolf Attending Clinician Unavailable MIGUEL ANGEL PITTMAN Attending Clinician Unavailable SIVAKUMAR_Renee Attending Clinician Unavailable SIVAKUMAR_Farhana Attending Clinician Unavailable Azar Fowler Attending Clinician JIM SEQUEIRA Attending Clinician Unavailable CARISSA DENISE Attending Clinician Unavailable Carissa Denise Attending Clinician MIGUEL ANGEL PITTMAN Admitting Clinician Unavailable SIVAKUMAR_Renee Admitting Clinician Unavailable SIVAKUMAR_Farhana Admitting Clinician Unavailable Payers Payer Name Policy Type Policy Number Effective Date Expiration Date S charlene [facility] [id number] (MEDICARE REPLACEMENT/ADVANT AGE - PPO) [facility] [employer] 1 [id number] 2021 Common TRS/ERS MCR PPO 00:00:00 [facility] [employer] (MEDICARE [id number] REPLACEMENT/ADVANT AGE - PPO) [facility] C1 [id number] Commo n [facility] C1 [id number] Commo n Spirit - [facility] [employer] MEDICARE [id number] 2018 ADV 00:00:00 [facility] [id number] 2019 00:00:00 Problems Condition Condition Condition Status Onset Resolution Last Treating Co mments Source Name Details Category Date Date Treatment Clinician Date 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 [facility] left lung left lung 00:00: Medi sia 00 Center NSCLC of NSCLC of Disease Recurre 2019-[address] [facility] [address] left lung left lung nce 1-16 [facility] 00:00: Medical 00 Center LEFT LUNG LEFT LUNG Diagnosis Active 2019-042020-01-29 Memoria BIOPSY BIOPSY 0 09:45:00 l Active 00:00: Zuhair 01/26/2020 00 [facility] Zuhair 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 (disorder) Active Problem 06/25/2022 [facility] Cerebral Cerebral Problem Active 2022-06-25 Memoria atheroscle atheroscle 01:13:44 l rosis rosis Zuhair (disorder) (disorder) Active Problem 06/25/2022 [facility] Essential Essential Problem Active 2022-06-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 tremor tremor 01:13:44 l (disorder) (disorder) He rmann Active Problem 06/25/2022 [facility] Amnesia Amnesia Problem Active 2022-06-25 Me susy (finding) (finding) 01:13:44 l Active Zuhair Problem 06/25/2022 [facility] [id number] Mixed Problem Common hyperlipid Spirit emia - [facility] 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, lobe, left St bronchus bronchus [facility] or lung or lung [facility] [id number] DDD Problem Common (degenerat Spirit dallin disc - CHI disease), [facility] 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 Sp jarrett blood loss anemia - CHI secondary St to blood [facility] loss Medical (chronic) Center Chronic Anemia in Problem Commo n anemia other Spirit chronic - CHI diseases [facility] [id number] Depression Problem Com mon with Spirit anxiety - [facility] [id number] Essential Problem Comm on hypertensi Spirit on - [facility] [id number] Gastroesop Problem Co mmon hageal Spirit reflux - [facility]I disease [facility] esophagiti [facility] [place] Crohn's Crohn''s Problem Common disease disease [facility] without - CHI complicati 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 [id number] Chronic Problem Commo n pain Spirit syndrome - [facility] [id number] Primary Problem Common insomnia Spirit - [facility] [id number] Status Problem Common post Spirit replacemen - CHI t of left 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 [facility] [id number] Status Problem Commo n [id number] post Spirit partial - CHI lobectomy [facility] Allergies, Adverse Reactions, Alerts Allergy Allergy Status Severity Reaction(s) Onset Inactive Treating Comm ents Source Name Type Date Date Clinician CYANOCOB Allergy Active High Anaphylaxis 2019-[address] ALAMIN 1-13 [facility] (VITAMIN 00:00: Medical B-12) 00 Center Cyanocob Propensi Active Anaphylaxis 2019-[address] alamin ty to 1-13 , Age 17 [facility] (Vitamin adverse 00:00: Medical B-12) reaction 00 Center s IODINATE Allergy Active High Hives 2019-[address] [facility] D 1-10 [facility] CONTRAST 00:00: Medical MEDIA 00 Center ASPIRIN Allergy Active High Palpitations 2019-04 [facility] 1-10 00:00: 00 SULFAMET Allergy Active High Anxiety 2019-04 [facility] HOXAZOLE 1-10 -TRIMETH 00:00: OPRIM 00 Iodinate Propensi Active Hives, 2019-[address] d ty to Itching 1-10 [facility] Contrast adverse 00:00: Medical Media reaction 00 Center s TAMOXIFE Allergy Active High 2018-0 [facility] N 6-21 ANALOGUE 00:00: S 00 CARISOPR Allergy Active High 2018-0 [facility] ODOL 6-06 00:00: 00 CLAVULAN Allergy Active High 2018-0 [facility] IC ACID 6-06 00:00: 00 GABAPENT Allergy Active High Nausea 2018-0 [facility] IN 3-20 00:00: 00 PREGABAL Allergy Active High Itching 2018-0 [facility] IN 3-20 00:00: 00 ASPIRIN Allergy Active High Palpitations 2017- SL EH 9-03 00:00: 00 IBUPROFE Allergy Active High Anxiety 2017-0 [facility] N 8-28 00:00: 00 OSELTAMI Allergy Active High Hives 2017-0 [facility] VIR 8-28 PHOSPHAT 00:00: E 00 AMOXICIL Allergy Active High Hives 2017-0 [facility] SHELLY-POT 8-28 CLAVULA 00:00: (BULK) 00 SULFA Allergy Active High 2017-0 [facility] (SULFONA 7-18 MIDE 00:00: ANTIBIOT 00 ICS) NO KNOWN Allergy Active [facility] ALLERGIE S Vitamin Vitamin Active Memoria B12 B12 l Zuhair gadolini gadolini Active Memori a um um l containi containi Joseluis n ng ng compound compound s s contrast contrast Active Memori a media media l (iodine- (iodine- Joseluis n based) based) Social History Social Habit Start Date Stop Date Quantity Comments Source History of Tobacco Common Spirit Use - [facility] Alcohol intake 2020-02-17 2020-02-17 Current drinker [facility]00 alcohol (finding) Medical Center Alcohol Comment 2020-02-13 2020-02-[address] [facility] 00:00:00 00:00:00 [facility] Cigarettes smoked 2020-02-13 2020-02-[address] [facility] current (pack per 00:00:00 00:00:00 Medical Center day) - Reported Cigarette 2020-02-13 2020-02-[address] [facility] [facility] pack-years 00:00:00 00:00:00 [facility] Tobacco use and 2020-02-13 2020-02-13 Smokeless tobacco [facility] exposure 00:00:00 00:00:00 non-user Medical Center Sex [birth year] At [birth year] [place] Gaytans 00:00:00 00:00:00 [facility] Smoking Status Start Date Stop Date Source Never Smoker Common Spirit - [facility] Tobacco smoking status 2020-10-27 16:06:32 2020-10-27 16:06:32 M jenni Moffett Medications Ordered Filled Start Stop Current Ordering Indication Dosage Frequency Signature Comments Components Source Medication Medication Date Date Medication? Clinician (SIG) Name Name Diphenoxyla Diphenoxyla No 1{table Diphenoxyl te-Atropine te-Atropine 24 t_as_ne ate-Atropi 2.5-0.025 2.5-0.025 00:00: eded} ne MG MG 00 2.5-0.025 MG Diphenoxyla Diphenoxyla No 1{table Diphenoxyl te-Atropine te-Atropine 12-16 t_as_ne ate-Atropi 2.5-0.025 2.5-0.025 00:00: eded} ne MG MG 00 2.5-0.025 MG Diphenoxyla Diphenoxyla No 1{table Diphenoxyl te-Atropine te-Atropine 12-16 t_as_ne ate-Atropi 2.5-0.025 2.5-0.025 00:00: eded} ne MG MG 00 2.5-0.025 MG Diphenoxyla Diphenoxyla No 1{table Diphenoxyl te-Atropine te-Atropine 9-16 t_as_ne ate-Atropi 2.5-0.025 2.5-0.025 00:00: eded} ne MG MG 00 2.5-0.025 MG Diphenoxyla Diphenoxyla 2022-0 No 1{table Diphenoxyl te-Atropine te-Atropine 6-08 t_as_ne ate-Atropi 2.5-0.025 2.5-0.025 00:00: eded} ne MG MG 00 2.5-0.025 MG Diphenoxyla Diphenoxyla 2022-0 No 1{table Diphenoxyl te-Atropine te-Atropine 6-08 t_as_ne ate-Atropi 2.5-0.025 2.5-0.025 00:00: eded} ne MG MG 00 2.5-0.025 MG Diphenoxyla Diphenoxyla 2022-0 No 1{table Diphenoxyl te-Atropine te-Atropine 6-08 t_as_ne ate-Atropi 2.5-0.025 2.5-0.025 00:00: eded} ne MG MG 00 2.5-0.025 MG Diphenoxyla Diphenoxyla 2022-0 No 1{table Diphenoxyl te-Atropine te-Atropine 6-08 t_as_ne ate-Atropi 2.5-0.025 2.5-0.025 00:00: eded} ne MG MG 00 2.5-0.025 MG Diphenoxyla Diphenoxyla 2022-0 No 1{table Diphenoxyl te-Atropine te-Atropine 6-08 t_as_ne ate-Atropi 2.5-0.025 2.5-0.025 00:00: eded} ne MG MG 00 2.5-0.025 MG Benzonatate Benzonatate 2-0 2022- No 1{capsu Benzonatat 100 MG 100 MG 09-07 le_as_n e 100 MG 00:00: 00:00 eeded} 00 :00 Benzonatate Benzonatate 2-0 2022- No 1{capsu Benzonatat 100 MG 100 MG 09-07 le_as_n e 100 MG 00:00: 00:00 eeded} 00 :00 predniSONE predniSONE 2021-0 2021- No QD predniSONE 20 MG 20 MG 09-07 20 MG 00:00: 00:00 00 :00 predniSONE predniSONE 2021-0 2021- No QD predniSONE 20 MG 20 MG 09-07 20 MG 00:00: 00:00 00 :00 Aspirin 81 2020-0 Yes 81 mg = 1 Me moria MG Enteric 7-28 tab, PO, l Coated 16:38: Daily, 0 [place] Tablet [St. 00 Refill(s) Garrett Aspirin] Aspirin 81 0 Yes 81 mg = 1 Me moria MG Enteric 7-28 tab, PO, l Coated 16:38: Daily, 0 [place] Tablet [St. 00 Refill(s) [place] Aspirin] [place] Yes 81 mg = 1 Me moria Low Dose 7-28 tab, PO, l Aspirin 81 16:38: Daily, 0 Her [place] mg oral 00 Refill(s) delayed release tablet Aspirin 81 Yes 81 mg = 1 Me moria MG Enteric 7-28 tab, PO, l Coated 16:38: Daily, 0 [place] Tablet [St. 00 Refill(s) [place] Aspirin] [place] Yes 81 mg = 1 Me moria Low Dose 7-28 tab, PO, l Aspirin 81 16:38: Daily, 0 Her [place] mg oral 00 Refill(s) delayed release tablet Vitamin 2020-0 Yes 100 Memoria B-12 100 6-09 microgram l mcg oral 21:30: = 1 tab, Kathleen nn tablet 00 PO, Daily, # 30 tab, 0 Refill(s) Folic Acid 2020-0 Yes Daily, 0 Mem oria 6-09 Refill(s) l 21:30: Zuhair 00 Vitamin 2020-0 Yes 100 Memoria B-12 100 6-09 microgram l mcg oral 21:30: = 1 tab, Kathleen nn tablet 00 PO, Daily, # 30 tab, 0 Refill(s) Folic Acid 2020-0 Yes Daily, 0 Mem oria 6-09 Refill(s) l 21:30: Zuhair 00 Vitamin 2020-0 Yes 100 Memoria B-12 100 6-09 microgram l mcg oral 21:30: = 1 tab, Kathleen nn tablet 00 PO, Daily, # 30 tab, 0 Refill(s) folic acid 2020-0 Yes Daily, 0 Mem oria 6-09 Refill(s) l 21:30: Vitamin 2020-0 Yes 100 Memoria B-12 100 6-09 microgram l mcg oral 21:30: = 1 tab, Kathleen nn tablet 00 PO, Daily, # 30 tab, 0 Refill(s) Folic Acid 2020-0 Yes Daily, 0 Mem oria 6-09 Refill(s) l 21:30: Vitamin 2020-0 Yes 100 Memoria B-12 100 6-09 microgram l mcg oral 21:30: = 1 tab, Kathleen nn tablet 00 PO, Daily, # 30 tab, 0 Refill(s) folic acid 2020-0 Yes Daily, 0 Mem oria 6-09 Refill(s) l 21:30: traZODone 2019-04 Yes 150mg QD Take [address] (DESYREL) 1-18 mg by [facility] 50 MG 11:29: mouth Medical tablet 28 nightly. Center diphenoxyla 2019-04 Yes 1{tbl} Take [address] te-atropine 1-18 tablet by Cristino es (LOMOTIL) 11:29: mouth 4 Medic al 2.5-0.025 28 (four) Center mg per times tablet daily as needed for Diarrhea. escitalopra 2019-04 Yes 20mg QD Take [address] m oxalate 1-18 by mouth [facility] (LEXAPRO) 11:29: daily. Medica l 20 MG 28 Center tablet esomeprazol 2019-04 Yes 40mg QD Take [address] e (NexIUM) 1-18 by mouth [facility] 40 MG 11:29: daily. Medical capsule 28 Center HYDROcodone 2019-04 Yes 1{tbl} Take [address] -acetaminop 1-18 tablet by Cristino es hen (NORCO 11:29: mouth Medica l 10-325) 28 every 6 Center 10-325 mg (six) per tablet hours as needed for Pain. ondansetron 2019-04 Yes 4mg Take [address] (ZOFRAN) 4 1-18 by mouth 2 Cristino es MG tablet 11:29: (two) Medical 28 times Center daily as needed for Nausea. tiZANidine 2019-04 Yes 4mg Take [address] (ZANAFLEX) -18 by mouth [facility] 4 MG tablet 11:29: every 6 Med ical 28 (six) Center hours as needed. triamcinolo 2019-04 Yes Apply [facility]I S t ne 1-18 topically [facility] (KENALOG) 11:29: 2 (two) Medic al 0.5 % 28 times Center ointment daily as needed. cholecalcif 2019-04 Yes 1000U QD Take 1,[address] pearl 1-18 Units by [facility] (VITAMIN 11:29: mouth Medical D3) 25 mcg 28 daily. Center (1,000 unit) tablet Vitamin D3 2019-04 Yes 1,000 Memori a [...] tab, PO, l tablet 13:00: Q8H, 0 [place] 00 Refill(s) gabapentin 2019-04 Yes 300 mg = 1 M emoria 300 mg oral 0-28 cap, PO, l capsule 13:00: TID, # 90 Kathleen nn 00 cap, 1 Refill(s) [place] 2019-04 Yes 1 tab, PO, Memori a 10/325 oral 0-28 Q6H, PRN l tablet 13:00: for pain, Joseluis n 00 # 24 tab, 0 Refill(s) Escitalopra 2019-04 Yes 20 mg = 1 [...] tab, PO, l tablet 13:00: Q8H, 0 [place] 00 Refill(s) gabapentin 2019-04 Yes 300 mg = 1 M emoria 300 MG Oral 0-28 cap, PO, l Capsule 13:00: TID, # 90 Kathleen nn 00 cap, 1 Refill(s) Escitalopra 2019-04 Yes 20 mg = 1 [...] 00 Daily, # 75 cap, 0 Refill(s) gabapentin 2019-04 Yes 300 mg = 1 M emoria 300 MG Oral 0-28 cap, PO, l Capsule 13:00: TID, # 90 Kathleen nn 00 cap, 1 Refill(s) Acetaminoph 2019-04 Yes 1 tab, PO, Memoria en 325 MG / 0-28 Q6H, PRN l Hydrocodone 13:00: for pain, H ermann Bitartrate 00 # 24 tab, 10 MG Oral 0 Tablet Refill(s) [[place] 10/325] Lexapro 20 2019-04 Yes 20 mg = 1 Me moria mg oral 0-28 tab, PO, l tablet 13:00: Daily, # Zuhair 00 30 tab, 0 Refill(s) NexIUM 40 2019-04 Yes 40 mg = 1 Mem oria mg oral 0-28 cap, PO, l delayed 13:00: Daily, # Joseluis n release 00 30 cap, 0 capsule Refill(s) Vitamin D3 2019-04 Yes 1,000 Memori a 1000 intl 0-28 IntlUnit = l units oral 13:00: 1 cap, PO, H ermann capsule 00 Daily, # 75 cap, 0 Refill(s) trazodone 2019-04 Yes 150 mg = 1 Me moria 150 mg oral 0-28 tab, PO, l tablet 13:00: Bedtime, # Kathleen nn 00 30 tab, 0 Refill(s) Acetaminoph 2019-04 Yes 1 tab, PO, Memoria en 325 MG / 0-28 Q6H, PRN l Hydrocodone 13:00: for pain, H ermann Bitartrate 00 # 24 tab, 10 MG Oral 0 Tablet Refill(s) [[place] 10/325] tizanidine 2019-04 Yes 8 mg = 2 Mem oria 4 mg oral 0-28 tab, PO, l tablet 13:00: Q8H, 0 [place] 00 Refill(s) gabapentin 2019-04 Yes 300 mg = 1 M emoria 300 mg oral 0-28 cap, PO, l capsule 13:00: TID, # 90 Kathleen nn 00 cap, 1 Refill(s) [place] 2019-04 Yes 1 tab, PO, Memori a 10/325 oral 0-28 Q6H, PRN l tablet 13:00: for pain, Joseluis n 00 # 24 tab, 0 Refill(s) Escitalopra 2019-04 Yes 20 mg = 1 [...] 00 Daily, # 75 cap, 0 Refill(s) gabapentin 2019-04 Yes 300 mg = 1 M emoria 300 MG Oral 0-28 cap, PO, l Capsule 13:00: TID, # 90 Kathleen nn 00 cap, 1 Refill(s) Acetaminoph 2019-04 Yes 1 tab, PO, Memoria en 325 MG / 0-28 Q6H, PRN l Hydrocodone 13:00: for pain, H ermann Bitartrate 00 # 24 tab, 10 MG Oral 0 Tablet Refill(s) [[place] 10/325] Lexapro 20 2019-04 Yes 20 mg = 1 Me moria mg oral 0-28 tab, PO, l tablet 13:00: Daily, # [place] 00 30 tab, 0 Refill(s) NexIUM 40 2019-04 Yes 40 mg = 1 Mem oria mg oral 0-28 cap, PO, l delayed 13:00: Daily, # Joseluis n release 00 30 cap, 0 capsule Refill(s) Kenal[place] Kenalog 0 No 40mg Common (Triamcinol (Triamcinol 9-24 S pirit one) one) 00:00: - CHI 00 [facility] Kenalog Kenalog 2020-0 No 40mg Common (Triamcinol (Triamcinol 9-24 S pirit one) one) 00:00: - CHI 00 [facility] Kenalog Kenalog 2020-0 No 40mg Common (Triamcinol (Triamcinol 9-24 S pirit one) one) 00:00: - CHI [facility] Kenalog Kenalog 2019-0 No 40mg Common (Triamcinol (Triamcinol 9-24 S pirit one) one) 00:00: - CHI 00 [facility] Kenalog Kenalog 2020-0 No 40mg Common (Triamcinol (Triamcinol 9-24 S pirit one) one) 00:00: - CHI 00 [facility] Kenalog Kenalog 2020-0 No 40mg Common (Triamcinol (Triamcinol 9-24 S pirit one) one) 00:00: - CHI 00 [facility] Kenalog Kenalog 2020-0 No 40mg Common (Triamcinol (Triamcinol 9-24 S pirit one) one) 00:00: - CHI 00 [facility] Kenalog Kenalog 2020-0 No 40mg Common (Triamcinol (Triamcinol 9-24 S pirit one) one) 00:00: - CHI 00 [facility] Kenalog Kenalog 2020-0 No 40mg Common (Triamcinol (Triamcinol 9-24 S pirit one) one) 00:00: - CHI 00 [facility] Kenalog Kenalog 2020-0 No 40mg Common (Triamcinol (Triamcinol 9-24 S pirit one) one) 00:00: - CHI 00 [facility] Kenalog Kenalog 2020-0 No 40mg Common (Triamcinol (Triamcinol 9-24 S pirit one) one) 00:00: - CHI 00 [facility] Kenalog Kenalog 2020-0 No 40mg Common (Triamcinol (Triamcinol 9-24 S pirit one) one) 00:00: - CHI 00 [facility] Kenalog Kenalog 2019-0 No 40mg Common (Triamcinol (Triamcinol 7-02 S pirit one) one) 00:00: - CHI 00 [facility] LIDOCAINE LIDOCAINE 2019-0 No 10mg Com mon HCL 10MG/ML HCL 10MG/ML 7-02 S pirit 00:00: - CHI 00 [facility] Kenalog Kenalog 2019-0 No 40mg Common (Triamcinol (Triamcinol 7-02 S pirit one) one) 00:00: - CHI 00 [facility] LIDOCAINE LIDOCAINE 2019-0 No 10mg Com mon HCL 10MG/ML HCL 10MG/ML 7-02 S pirit 00:00: - CHI 00 [facility] Kenalog Kenalog 2019-0 No 40mg Common (Triamcinol (Triamcinol 7-02 S pirit one) one) 00:00: - CHI 00 [facility] LIDOCAINE LIDOCAINE 2019-0 No 10mg Com mon HCL 10MG/ML HCL 10MG/ML 7-02 S pirit 00:00: - CHI 00 [facility] Kenalog Kenalog 2019-0 No 40mg Common (Triamcinol (Triamcinol 7-02 S pirit one) one) 00:00: - CHI 00 [facility] LIDOCAINE LIDOCAINE 2019-0 No 10mg Com mon HCL 10MG/ML HCL 10MG/ML 7-02 S pirit 00:00: - CHI 00 [facility] Kenalog Kenalog 2019-0 No 40mg Common (Triamcinol (Triamcinol 7-02 S pirit one) one) 00:00: - CHI 00 [facility] LIDOCAINE LIDOCAINE 2019-0 No 10mg Com mon HCL 10MG/ML HCL 10MG/ML 7-02 S pirit 00:00: - CHI 00 [facility] Kenalog Kenalog 2019-0 No 40mg Common (Triamcinol (Triamcinol 7-02 S pirit one) one) 00:00: - CHI 00 [facility] LIDOCAINE LIDOCAINE 2019-0 No 10mg Com mon HCL 10MG/ML HCL 10MG/ML 7-02 S pirit 00:00: - CHI 00 [facility] Kenalog Kenalog 2019-0 No 40mg Common (Triamcinol (Triamcinol 7-02 S pirit one) one) 00:00: - CHI 00 [facility] LIDOCAINE LIDOCAINE 2019-0 No 10mg Com mon HCL 10MG/ML HCL 10MG/ML 7-02 S pirit 00:00: - CHI 00 [facility] Kenalog Kenalog 2019-0 No 40mg Common (Triamcinol (Triamcinol 7-02 S pirit one) one) 00:00: - CHI 00 [facility] LIDOCAINE LIDOCAINE 2019-0 No 10mg Com mon HCL 10MG/ML HCL 10MG/ML 7-02 S pirit 00:00: - CHI 00 [facility] Kenalog Kenalog 2019-0 No 40mg Common (Triamcinol (Triamcinol 7-02 S pirit one) one) 00:00: - CHI 00 [facility] LIDOCAINE LIDOCAINE 2019-0 No 10mg Com mon HCL 10MG/ML HCL 10MG/ML 7-02 S pirit 00:00: - CHI 00 [facility] Kenalog Kenalog 2019-0 No 40mg Common (Triamcinol (Triamcinol 7-02 S pirit one) one) 00:00: - CHI 00 [facility] LIDOCAINE LIDOCAINE 2019-0 No 10mg Com mon HCL 10MG/ML HCL 10MG/ML 7-02 S pirit 00:00: - CHI [facility] Kenalog Kenalog 2019-0 No 40mg Common (Triamcinol (Triamcinol 7-02 S pirit one) one) 00:00: - CHI 00 [facility] LIDOCAINE LIDOCAINE 2019-0 No 10mg Com mon HCL 10MG/ML HCL 10MG/ML 7-02 S pirit 00:00: - CHI 00 [facility] Kenalog Kenalog 2019-0 No 40mg Common (Triamcinol (Triamcinol 7-02 S pirit one) one) 00:00: - CHI [facility] LIDOCAINE LIDOCAINE 2019-0 No 10mg Com mon HCL 10MG/ML HCL 10MG/ML 7-02 S pirit 00:00: - CHI [facility] LIDOCAINE LIDOCAINE 2019-0 No 10mg Com mon HCL 10MG/ML HCL 10MG/ML 4-02 S pirit 00:00: - CHI [facility] Kenalog Kenalog 2019-0 No 40mg Common (Triamcinol (Triamcinol 4-02 S pirit one) one) 00:00: - CHI [facility] LIDOCAINE LIDOCAINE 2019-0 No 10mg Com mon HCL 10MG/ML HCL 10MG/ML 4-02 S pirit 00:00: - CHI 00 [facility] Kenalog Kenalog 2019-0 No 40mg Common (Triamcinol (Triamcinol 4-02 S pirit one) one) 00:00: - CHI [facility] LIDOCAINE LIDOCAINE 2019-0 No 10mg Com mon HCL 10MG/ML HCL 10MG/ML 4-02 S pirit 00:00: - CHI 00 [facility] Kenalog Kenalog 2019-0 No 40mg Common (Triamcinol (Triamcinol 4-02 S pirit one) one) 00:00: - CHI 00 [facility] LIDOCAINE LIDOCAINE 2019-0 No 10mg Com mon HCL 10MG/ML HCL 10MG/ML 4-02 S pirit 00:00: - CHI [facility] Kenalog Kenalog 2019-0 No 40mg Common (Triamcinol (Triamcinol 4-02 S pirit one) one) 00:00: - CHI 00 [facility] LIDOCAINE LIDOCAINE 2019-0 No 10mg Com mon HCL 10MG/ML HCL 10MG/ML 4-02 S pirit 00:00: - CHI 00 [facility] Kenalog Kenalog 2019-0 No 40mg Common (Triamcinol (Triamcinol 4-02 S pirit one) one) 00:00: - CHI 00 [facility] LIDOCAINE LIDOCAINE 2019-0 No 10mg Com mon HCL 10MG/ML HCL 10MG/ML 4-02 S pirit 00:00: - CHI 00 [facility] Kenalog Kenalog 2019-0 No 40mg Common (Triamcinol (Triamcinol 4-02 S pirit one) one) 00:00: - CHI 00 [facility] LIDOCAINE LIDOCAINE 2019-0 No 10mg Com mon HCL 10MG/ML HCL 10MG/ML 4-02 S pirit 00:00: - CHI 00 [facility] Kenalog Kenalog 2019-0 No 40mg Common (Triamcinol (Triamcinol 4-02 S pirit one) one) 00:00: - CHI 00 [facility] LIDOCAINE LIDOCAINE 2019-0 No 10mg Com mon HCL 10MG/ML HCL 10MG/ML 4-02 S pirit 00:00: - CHI 00 [facility] Kenalog Kenalog 2019-0 No 40mg Common (Triamcinol (Triamcinol 4-02 S pirit one) one) 00:00: - CHI 00 [facility] LIDOCAINE LIDOCAINE 2019-0 No 10mg Com mon HCL 10MG/ML HCL 10MG/ML 4-02 S pirit 00:00: - CHI 00 [facility] Kenalog Kenalog 2019-0 No 40mg Common (Triamcinol (Triamcinol 4-02 S pirit one) one) 00:00: - CHI 00 [facility] LIDOCAINE LIDOCAINE 2019-0 No 10mg Com mon HCL 10MG/ML HCL 10MG/ML 4-02 S pirit 00:00: - CHI 00 [facility] Kenalog Kenalog 2019-0 No 40mg Common (Triamcinol (Triamcinol 4-02 S pirit one) one) 00:00: - CHI 00 [facility] LIDOCAINE LIDOCAINE 2019-0 No 10mg Com mon HCL 10MG/ML HCL 10MG/ML 4-02 S pirit 00:00: - CHI 00 [facility] Kenalog Kenalog 2019-0 No 40mg Common (Triamcinol (Triamcinol 4-02 S pirit one) one) 00:00: - CHI 00 [facility] LIDOCAINE LIDOCAINE 2019-0 No 10mg Com mon HCL 10MG/ML HCL 10MG/ML 4-02 S pirit 00:00: - CHI 00 [facility] Kenalog Kenalog 2019-0 No 40mg Common (Triamcinol (Triamcinol 4-02 S pirit one) one) 00:00: - CHI 00 [facility] Kenalog Kenalog 2018-0 No 40mg [facility] (Triamcinol (Triamcinol 6-05 S pirit one) one) 00:00: - [facility] Kenalog Kenalog 2018-0 No 40mg [facility] (Triamcinol (Triamcinol 6-05 S pirit one) one) 00:00: - [facility] Kenalog Kenalog 2018-0 No 40mg [facility] (Triamcinol (Triamcinol 6-05 S pirit one) one) 00:00: - [facility] Kenalog Kenalog 2018-0 No 40mg [facility] (Triamcinol (Triamcinol 6-05 S pirit one) one) 00:00: - [facility] Kenalog Kenalog 2018-0 No 40mg [facility] (Triamcinol (Triamcinol 6-05 S pirit one) one) 00:00: - [facility] Kenalog Kenalog 2018-0 No 40mg [facility] (Triamcinol (Triamcinol 6-05 S pirit one) one) 00:00: - [facility] Kenalog Kenalog 2018-0 No 40mg [facility] (Triamcinol (Triamcinol 6-05 S pirit one) one) 00:00: - [facility] Kenalog Kenalog 2018-0 No 40mg [facility] (Triamcinol (Triamcinol 6-05 S pirit one) one) 00:00: - [facility] Christina Vasquez No 40mg [facility] (Triamcinol (Triamcinol 6-05 S pirit one) one) 00:00: - [facility] Christina Vasquez No 40mg [facility] (Triamcinol (Triamcinol 6-05 S pirit one) one) 00:00: - [facility] Christina Vasquez No 40mg [facility] (Triamcinol (Triamcinol 6-05 S pirit one) one) 00:00: - [facility] Christina Vasquez No 40mg [facility] (Triamcinol (Triamcinol 6-05 S pirit one) one) 00:00: - [facility] Nexium Nexium Yes Vivek 1 capsule Com mon [facility] Tizanidine Tizanidine Yes Vivek 1-3 [facility] HCl HCl [facility] tablets as [facility] needed [facility] Hydrocodone Hydrocodone Yes Vivek 1 tablet [facility] -Acetaminop -Acetaminop [facility] as needed [facility] hen [facility] Fluorouraci Fluorouraci Yes Vivek APPLY TO [facility] l l [facility] AFFECTED [facility]ICE St DAILY FOR [facility] TWO WEEKS. [facility] Trazodone Trazodone Yes Vivek 1-3 [facility] HCl HCl [facility] tablets [facility] Lexapro Lexapro Yes Vivek 1 tablet [facility] Ondansetron Ondansetron Yes Vivek 1 tablet [facility] HCl HCl [facility] Diphenoxyla Diphenoxyla Yes Vivek 1 tablet Common te-Atropine te-Atropine [facility] Gabapentin Gabapentin Yes Vivek 1-3 Common [facility]jas capsules [facility] as needed [facility] Folic Acid Folic Acid No Folic Acid Lexapro 20 Lexapro 20 No 1{table QD Lexapro 20 MG MG t} MG tiZANidine tiZANidine No QD tiZANidine HCl 4 MG HCl 4 MG HCl 4 MG HYDROcodone HYDROcodone No 1{table TID HYDROcodon -Acetaminop -Acetaminop t_as_ne e-Acetamin hen 10-325 hen 10-325 eded} ophen MG MG 10-325 MG Gabapentin Gabapentin No QD Gabapentin 300 MG 300 MG 300 MG Ondansetron Ondansetron No 1{table Ondansetro HCl 4 MG HCl 4 MG t} n HCl 4 MG traZODone traZODone No QD traZODone HCl 50 MG HCl 50 MG HCl 50 MG Cephalexin Cephalexin No Cephalexin NexIUM 40 NexIUM 40 No 1{capsu QD NexIUM 40 MG MG le} MG Promethazin Promethazin No Promethazi e HCl e HCl ne HCl Ondansetron Ondansetron No 1{table QD Ondansetro HCl 4 MG HCl 4 MG t} n HCl 4 MG Fluorouraci Fluorouraci No Fluorourac l 5 % l 5 % il 5 % Diphenoxyla Diphenoxyla No 1{table Diphenoxyl te-Atropine te-Atropine t_as_ne ate-Atropi 2.5-0.025 2.5-0.025 eded} ne MG MG 2.5-0.025 MG Folic Acid Folic Acid No Folic Acid Lexapro 20 Lexapro 20 No 1{table QD Lexapro 20 MG MG t} MG tiZANidine tiZANidine No QD tiZANidine HCl 4 MG HCl 4 MG HCl 4 MG HYDROcodone HYDROcodone No 1{table TID HYDROcodon -Acetaminop -Acetaminop t_as_ne e-Acetamin hen 10-325 hen 10-325 eded} ophen MG MG 10-325 MG Gabapentin Gabapentin No QD Gabapentin 300 MG 300 MG 300 MG Ondansetron Ondansetron No 1{table Ondansetro HCl 4 MG HCl 4 MG t} n HCl 4 MG traZODone traZODone No QD traZODone HCl 50 MG HCl 50 MG HCl 50 MG Cephalexin Cephalexin No Cephalexin NexIUM 40 NexIUM 40 No 1{capsu QD NexIUM 40 MG MG le} MG Promethazin Promethazin No Promethazi e HCl e HCl ne HCl Ondansetron Ondansetron No 1{table QD Ondansetro HCl 4 MG HCl 4 MG t} n HCl 4 MG Fluorouraci Fluorouraci No Fluorourac l 5 % l 5 % il 5 % Diphenoxyla Diphenoxyla No 1{table Diphenoxyl te-Atropine te-Atropine t_as_ne ate-Atropi 2.5-0.025 2.5-0.025 eded} ne MG MG 2.5-0.025 MG Folic Acid Folic Acid No Folic Acid Lexapro 20 Lexapro 20 No 1{table QD Lexapro 20 MG MG t} MG tiZANidine tiZANidine No QD tiZANidine HCl 4 MG HCl 4 MG HCl 4 MG HYDROcodone HYDROcodone No 1{table TID HYDROcodon -Acetaminop -Acetaminop t_as_ne e-Acetamin hen 10-325 hen 10-325 eded} ophen MG MG 10-325 MG Gabapentin Gabapentin No QD Gabapentin 300 MG 300 MG 300 MG Ondansetron Ondansetron No 1{table Ondansetro HCl 4 MG HCl 4 MG t} n HCl 4 MG traZODone traZODone No QD traZODone HCl 50 MG HCl 50 MG HCl 50 MG Cephalexin Cephalexin No Cephalexin NexIUM 40 NexIUM 40 No 1{capsu QD NexIUM 40 MG MG le} MG Promethazin Promethazin No Promethazi e HCl e HCl ne HCl Ondansetron Ondansetron No 1{table QD Ondansetro HCl 4 MG HCl 4 MG t} n HCl 4 MG Fluorouraci Fluorouraci No Fluorourac l 5 % l 5 % il 5 % Diphenoxyla Diphenoxyla No 1{table Diphenoxyl te-Atropine te-Atropine t_as_ne ate-Atropi 2.5-0.025 2.5-0.025 eded} ne MG MG 2.5-0.025 MG Folic Acid Folic Acid No Folic Acid Lexapro 20 Lexapro 20 No 1{table QD Lexapro 20 MG MG t} MG tiZANidine tiZANidine No QD tiZANidine HCl 4 MG HCl 4 MG HCl 4 MG HYDROcodone HYDROcodone No 1{table TID HYDROcodon -Acetaminop -Acetaminop t_as_ne e-Acetamin hen 10-325 hen 10-325 eded} ophen MG MG 10-325 MG Gabapentin Gabapentin No QD Gabapentin 300 MG 300 MG 300 MG Ondansetron Ondansetron No 1{table Ondansetro HCl 4 MG HCl 4 MG t} n HCl 4 MG traZODone traZODone No QD traZODone HCl 50 MG HCl 50 MG HCl 50 MG Cephalexin Cephalexin No Cephalexin NexIUM 40 NexIUM 40 No 1{capsu QD NexIUM 40 MG MG le} MG Promethazin Promethazin No Promethazi e HCl e HCl ne HCl Ondansetron Ondansetron No 1{table QD Ondansetro HCl 4 MG HCl 4 MG t} n HCl 4 MG Fluorouraci Fluorouraci No Fluorourac l 5 % l 5 % il 5 % Diphenoxyla Diphenoxyla No 1{table Diphenoxyl te-Atropine te-Atropine t_as_ne ate-Atropi 2.5-0.025 2.5-0.025 eded} ne MG MG 2.5-0.025 MG Ondansetron Ondansetron No 1{table QD Ondansetro HCl 4 MG HCl 4 MG t} n HCl 4 MG Lexapro 20 Lexapro 20 No 1{table QD Lexapro 20 MG MG t} MG Fluorouraci Fluorouraci No Fluorourac l 5 % l 5 % il 5 % Cephalexin Cephalexin No Cephalexin Ondansetron Ondansetron No 1{table Ondansetro HCl 4 MG HCl 4 MG t} n HCl 4 MG Diphenoxyla Diphenoxyla No 1{table Diphenoxyl te-Atropine te-Atropine t_as_ne ate-Atropi 2.5-0.025 2.5-0.025 eded} ne MG MG 2.5-0.025 MG Gabapentin Gabapentin No QD Gabapentin 300 MG 300 MG 300 MG tiZANidine tiZANidine No QD tiZANidine HCl 4 MG HCl 4 MG HCl 4 MG Folic Acid Folic Acid No Folic Acid traZODone traZODone No QD traZODone HCl 50 MG HCl 50 MG HCl 50 MG NexIUM 40 NexIUM 40 No 1{capsu QD NexIUM 40 MG MG le} MG NexIUM 40 NexIUM 40 No 1{capsu QD NexIUM 40 MG MG le} MG HYDROcodone HYDROcodone No 1{table TID HYDROcodon -Acetaminop -Acetaminop t_as_ne e-Acetamin hen 10-325 hen 10-325 eded} ophen MG MG 10-325 MG Promethazin Promethazin No Promethazi e HCl e HCl ne HCl traZODone traZODone No QD traZODone HCl 50 MG HCl 50 MG HCl 50 MG NexIUM 40 NexIUM 40 No 1{capsu QD NexIUM 40 MG MG le} MG Folic Acid Folic Acid No Folic Acid Promethazin Promethazin No Promethazi e HCl e HCl ne HCl Diphenoxyla Diphenoxyla No 1{table Diphenoxyl te-Atropine te-Atropine t_as_ne ate-Atropi 2.5-0.025 2.5-0.025 eded} ne MG MG 2.5-0.025 MG NexIUM 40 NexIUM 40 No 1{capsu QD NexIUM 40 MG MG le} MG Ondansetron Ondansetron No 1{table QD Ondansetro HCl 4 MG HCl 4 MG t} n HCl 4 MG HYDROcodone HYDROcodone No 1{table TID HYDROcodon -Acetaminop -Acetaminop t_as_ne e-Acetamin hen 10-325 hen 10-325 eded} ophen MG MG 10-325 MG Lexapro 20 Lexapro 20 No 1{table QD Lexapro 20 MG MG t} MG Gabapentin Gabapentin No QD Gabapentin 300 MG 300 MG 300 MG Fluorouraci Fluorouraci No Fluorourac l 5 % l 5 % il 5 % Ondansetron Ondansetron No 1{table Ondansetro HCl 4 MG HCl 4 MG t} n HCl 4 MG tiZANidine tiZANidine No QD tiZANidine HCl 4 MG HCl 4 MG HCl 4 MG Cephalexin Cephalexin No Cephalexin tiZANidine tiZANidine No QD tiZANidine HCl 4 MG HCl 4 MG HCl 4 MG Folic Acid Folic Acid No Folic Acid Fluorouraci Fluorouraci No Fluorourac l 5 % l 5 % il 5 % Ondansetron Ondansetron No 1{table QD Ondansetro HCl 4 MG HCl 4 MG t} n HCl 4 MG Promethazin Promethazin No Promethazi e HCl e HCl ne HCl Lexapro 20 Lexapro 20 No 1{table QD Lexapro 20 MG MG t} MG Gabapentin Gabapentin No QD Gabapentin 300 MG 300 MG 300 MG Cephalexin Cephalexin No Cephalexin traZODone traZODone No QD traZODone HCl 50 MG HCl 50 MG HCl 50 MG NexIUM 40 NexIUM 40 No 1{capsu QD NexIUM 40 MG MG le} MG HYDROcodone HYDROcodone No 1{table TID HYDROcodon -Acetaminop -Acetaminop t_as_ne e-Acetamin hen 10-325 hen 10-325 eded} ophen MG MG 10-325 MG NexIUM 40 NexIUM 40 No 1{capsu QD NexIUM 40 MG MG le} MG Ondansetron Ondansetron No 1{table Ondansetro HCl 4 MG HCl 4 MG t} n HCl 4 MG Diphenoxyla Diphenoxyla No 1{table Diphenoxyl te-Atropine te-Atropine t_as_ne ate-Atropi 2.5-0.025 2.5-0.025 eded} ne MG MG 2.5-0.025 MG tiZANidine tiZANidine No QD tiZANidine HCl 4 MG HCl 4 MG HCl 4 MG Folic Acid Folic Acid No Folic Acid Fluorouraci Fluorouraci No Fluorourac l 5 % l 5 % il 5 % Ondansetron Ondansetron No 1{table QD Ondansetro HCl 4 MG HCl 4 MG t} n HCl 4 MG Promethazin Promethazin No Promethazi e HCl e HCl ne HCl Lexapro 20 Lexapro 20 No 1{table QD Lexapro 20 MG MG t} MG Gabapentin Gabapentin No QD Gabapentin 300 MG 300 MG 300 MG Cephalexin Cephalexin No Cephalexin traZODone traZODone No QD traZODone HCl 50 MG HCl 50 MG HCl 50 MG NexIUM 40 NexIUM 40 No 1{capsu QD NexIUM 40 MG MG le} MG HYDROcodone HYDROcodone No 1{table TID HYDROcodon -Acetaminop -Acetaminop t_as_ne e-Acetamin hen 10-325 hen 10-325 eded} ophen MG MG 10-325 MG NexIUM 40 NexIUM 40 No 1{capsu QD NexIUM 40 MG MG le} MG Ondansetron Ondansetron No 1{table Ondansetro HCl 4 MG HCl 4 MG t} n HCl 4 MG Diphenoxyla Diphenoxyla No 1{table Diphenoxyl te-Atropine te-Atropine t_as_ne ate-Atropi 2.5-0.025 2.5-0.025 eded} ne MG MG 2.5-0.025 MG Ondansetron Ondansetron No 1{table Ondansetro HCl 4 MG HCl 4 MG t} n HCl 4 MG Promethazin Promethazin No Promethazi e HCl e HCl ne HCl HYDROcodone HYDROcodone No 1{table TID HYDROcodon -Acetaminop -Acetaminop t_as_ne e-Acetamin hen 10-325 hen 10-325 eded} ophen MG MG 10-325 MG Lexapro 20 Lexapro 20 No 1{table QD Lexapro 20 MG MG t} MG Cephalexin Cephalexin No Cephalexin Ondansetron Ondansetron No 1{table QD Ondansetro HCl 4 MG HCl 4 MG t} n HCl 4 MG Gabapentin Gabapentin No QD Gabapentin 300 MG 300 MG 300 MG traZODone traZODone No QD traZODone HCl 50 MG HCl 50 MG HCl 50 MG NexIUM 40 NexIUM 40 No 1{capsu QD NexIUM 40 MG MG le} MG tiZANidine tiZANidine No QD tiZANidine HCl 4 MG HCl 4 MG HCl 4 MG Folic Acid Folic Acid No Folic Acid Fluorouraci Fluorouraci No Fluorourac l 5 % l 5 % il 5 % NexIUM 40 NexIUM 40 No 1{capsu QD NexIUM 40 MG MG le} MG Ondansetron Ondansetron No 1{table Ondansetro HCl 4 MG HCl 4 MG t} n HCl 4 MG Promethazin Promethazin No Promethazi e HCl e HCl ne HCl HYDROcodone HYDROcodone No 1{table TID HYDROcodon -Acetaminop -Acetaminop t_as_ne e-Acetamin hen 10-325 hen 10-325 eded} ophen MG MG 10-325 MG Lexapro 20 Lexapro 20 No 1{table QD Lexapro 20 MG MG t} MG Cephalexin Cephalexin No Cephalexin Ondansetron Ondansetron No 1{table QD Ondansetro HCl 4 MG HCl 4 MG t} n HCl 4 MG Gabapentin Gabapentin No QD Gabapentin 300 MG 300 MG 300 MG traZODone traZODone No QD traZODone HCl 50 MG HCl 50 MG HCl 50 MG NexIUM 40 NexIUM 40 No 1{capsu QD NexIUM 40 MG MG le} MG tiZANidine tiZANidine No QD tiZANidine HCl 4 MG HCl 4 MG HCl 4 MG Folic Acid Folic Acid No Folic Acid Fluorouraci Fluorouraci No Fluorourac l 5 % l 5 % il 5 % NexIUM 40 NexIUM 40 No 1{capsu QD NexIUM 40 MG MG le} MG Folic Acid Folic Acid No Folic Acid tiZANidine tiZANidine No QD tiZANidine HCl 4 MG HCl 4 MG HCl 4 MG Lexapro 20 Lexapro 20 No 1{table QD Lexapro 20 MG MG t} MG Esomeprazol Esomeprazol No Esomeprazo e Magnesium e Magnesium le 40 MG 40 MG Magnesium 40 MG NexIUM 40 NexIUM 40 No 1{capsu QD NexIUM 40 MG MG le} MG Ondansetron Ondansetron No 1{table QD Ondansetro HCl 4 MG HCl 4 MG t} n HCl 4 MG traZODone traZODone No QD traZODone HCl 50 MG HCl 50 MG HCl 50 MG Cephalexin Cephalexin No Cephalexin Promethazin Promethazin No Promethazi e HCl e HCl ne HCl Ondansetron Ondansetron No 1{table Ondansetro HCl 4 MG HCl 4 MG t} n HCl 4 MG HYDROcodone HYDROcodone No 1{table TID HYDROcodon -Acetaminop -Acetaminop t_as_ne e-Acetamin hen 10-325 hen 10-325 eded} ophen MG MG 10-325 MG Gabapentin Gabapentin No QD Gabapentin 300 MG 300 MG 300 MG Fluorouraci Fluorouraci No Fluorourac l 5 % l 5 % il 5 % Folic Acid Folic Acid No Folic Acid tiZANidine tiZANidine No QD tiZANidine HCl 4 MG HCl 4 MG HCl 4 MG Lexapro 20 Lexapro 20 No 1{table QD Lexapro 20 MG MG t} MG Esomeprazol Esomeprazol No Esomeprazo e Magnesium e Magnesium le 40 MG 40 MG Magnesium 40 MG NexIUM 40 NexIUM 40 No 1{capsu QD NexIUM 40 MG MG le} MG Ondansetron Ondansetron No 1{table QD Ondansetro HCl 4 MG HCl 4 MG t} n HCl 4 MG traZODone traZODone No QD traZODone HCl 50 MG HCl 50 MG HCl 50 MG Cephalexin Cephalexin No Cephalexin Promethazin Promethazin No Promethazi e HCl e HCl ne HCl Ondansetron Ondansetron No 1{table Ondansetro HCl 4 MG HCl 4 MG t} n HCl 4 MG HYDROcodone HYDROcodone No 1{table TID HYDROcodon -Acetaminop -Acetaminop t_as_ne e-Acetamin hen 10-325 hen 10-325 eded} ophen MG MG 10-325 MG Gabapentin Gabapentin No QD Gabapentin 300 MG 300 MG 300 MG Fluorouraci Fluorouraci No Fluorourac l 5 % l 5 % il 5 % Folic Acid Folic Acid No Folic Acid tiZANidine tiZANidine No QD tiZANidine HCl 4 MG HCl 4 MG HCl 4 MG Lexapro 20 Lexapro 20 No 1{table QD Lexapro 20 MG MG t} MG Esomeprazol Esomeprazol No Esomeprazo e Magnesium e Magnesium le 40 MG 40 MG Magnesium 40 MG NexIUM 40 NexIUM 40 No 1{capsu QD NexIUM 40 MG MG le} MG Ondansetron Ondansetron No 1{table QD Ondansetro HCl 4 MG HCl 4 MG t} n HCl 4 MG traZODone traZODone No QD traZODone HCl 50 MG HCl 50 MG HCl 50 MG Cephalexin Cephalexin No Cephalexin Promethazin Promethazin No Promethazi e HCl e HCl ne HCl Ondansetron Ondansetron No 1{table Ondansetro HCl 4 MG HCl 4 MG t} n HCl 4 MG HYDROcodone HYDROcodone No 1{table TID HYDROcodon -Acetaminop -Acetaminop t_as_ne e-Acetamin hen 10-325 hen 10-325 eded} ophen MG MG 10-325 MG Gabapentin Gabapentin No QD Gabapentin 300 MG 300 MG 300 MG Fluorouraci Fluorouraci No Fluorourac l 5 % l 5 % il 5 % Promethazin Promethazin No Promethazi e HCl e HCl ne HCl traZODone traZODone No QD traZODone HCl 50 MG HCl 50 MG HCl 50 MG Lexapro 20 Lexapro 20 No 1{table QD Lexapro 20 MG MG t} MG Ondansetron Ondansetron No 1{table Ondansetro HCl 4 MG HCl 4 MG t} n HCl 4 MG HYDROcodone HYDROcodone No 1{table TID HYDROcodon -Acetaminop -Acetaminop t_as_ne e-Acetamin hen 10-325 hen 10-325 eded} ophen MG MG 10-325 MG NexIUM 40 NexIUM 40 No 1{capsu QD NexIUM 40 MG MG le} MG Ondansetron Ondansetron No 1{table QD Ondansetro HCl 4 MG HCl 4 MG t} n HCl 4 MG Fluorouraci Fluorouraci No Fluorourac l 5 % l 5 % il 5 % Gabapentin Gabapentin No QD Gabapentin 300 MG 300 MG 300 MG Cephalexin Cephalexin No Cephalexin Esomeprazol Esomeprazol No Esomeprazo e Magnesium e Magnesium le 40 MG 40 MG Magnesium 40 MG Folic Acid Folic Acid No Folic Acid tiZANidine tiZANidine No QD tiZANidine HCl 4 MG HCl 4 MG HCl 4 MG NexIUM 40 NexIUM 40 No 1{capsu QD NexIUM 40 MG MG le} MG Promethazin Promethazin No Promethazi e HCl e HCl ne HCl traZODone traZODone No QD traZODone HCl 50 MG HCl 50 MG HCl 50 MG Lexapro 20 Lexapro 20 No 1{table QD Lexapro 20 MG MG t} MG Ondansetron Ondansetron No 1{table Ondansetro HCl 4 MG HCl 4 MG t} n HCl 4 MG HYDROcodone HYDROcodone No 1{table TID HYDROcodon -Acetaminop -Acetaminop t_as_ne e-Acetamin hen 10-325 hen 10-325 eded} ophen MG MG 10-325 MG NexIUM 40 NexIUM 40 No 1{capsu QD NexIUM 40 MG MG le} MG Ondansetron Ondansetron No 1{table QD Ondansetro HCl 4 MG HCl 4 MG t} n HCl 4 MG Fluorouraci Fluorouraci No Fluorourac l 5 % l 5 % il 5 % Gabapentin Gabapentin No QD Gabapentin 300 MG 300 MG 300 MG Cephalexin Cephalexin No Cephalexin Esomeprazol Esomeprazol No Esomeprazo e Magnesium e Magnesium le 40 MG 40 MG Magnesium 40 MG Folic Acid Folic Acid No Folic Acid tiZANidine tiZANidine No QD tiZANidine HCl 4 MG HCl 4 MG HCl 4 MG NexIUM 40 NexIUM 40 No 1{capsu QD NexIUM 40 MG MG le} MG Esomeprazol Esomeprazol No Esomeprazo e Magnesium e Magnesium le 40 MG 40 MG Magnesium 40 MG Cephalexin Cephalexin No Cephalexin NexIUM 40 NexIUM 40 No 1{capsu QD NexIUM 40 MG MG le} MG HYDROcodone HYDROcodone No 1{table TID HYDROcodon -Acetaminop -Acetaminop t_as_ne e-Acetamin hen 10-325 hen 10-325 eded} ophen MG MG 10-325 MG Ondansetron Ondansetron No 1{table Ondansetro HCl 4 MG HCl 4 MG t} n HCl 4 MG Lexapro 20 Lexapro 20 No 1{table QD Lexapro 20 MG MG t} MG Ondansetron Ondansetron No 1{table QD Ondansetro HCl 4 MG HCl 4 MG t} n HCl 4 MG NexIUM 40 NexIUM 40 No 1{capsu QD NexIUM 40 MG MG le} MG Gabapentin Gabapentin No QD Gabapentin 300 MG 300 MG 300 MG Promethazin Promethazin No Promethazi e HCl e HCl ne HCl Fluorouraci Fluorouraci No Fluorourac l 5 % l 5 % il 5 % Folic Acid Folic Acid No Folic Acid traZODone traZODone No QD traZODone HCl 50 MG HCl 50 MG HCl 50 MG tiZANidine tiZANidine No QD tiZANidine HCl 4 MG HCl 4 MG HCl 4 MG Promethazin Promethazin No Promethazi e HCl e HCl ne HCl traZODone traZODone No QD traZODone HCl 50 MG HCl 50 MG HCl 50 MG Lexapro 20 Lexapro 20 No 1{table QD Lexapro 20 MG MG t} MG Ondansetron Ondansetron No 1{table Ondansetro HCl 4 MG HCl 4 MG t} n HCl 4 MG HYDROcodone HYDROcodone No 1{table TID HYDROcodon -Acetaminop -Acetaminop t_as_ne e-Acetamin hen 10-325 hen 10-325 eded} ophen MG MG 10-325 MG NexIUM 40 NexIUM 40 No 1{capsu QD NexIUM 40 MG MG le} MG Ondansetron Ondansetron No 1{table QD Ondansetro HCl 4 MG HCl 4 MG t} n HCl 4 MG Fluorouraci Fluorouraci No Fluorourac l 5 % l 5 % il 5 % Gabapentin Gabapentin No QD Gabapentin 300 MG 300 MG 300 MG Cephalexin Cephalexin No Cephalexin Esomeprazol Esomeprazol No Esomeprazo e Magnesium e Magnesium le 40 MG 40 MG Magnesium 40 MG Folic Acid Folic Acid No Folic Acid tiZANidine tiZANidine No QD tiZANidine HCl 4 MG HCl 4 MG HCl 4 MG NexIUM 40 NexIUM 40 No 1{capsu QD NexIUM 40 MG MG le} MG Immunizations Ordered Immunization Filled Immunization Date Status Commen ts Source Name Name Prevnar 20 (PCV20) Prevnar 20 (PCV20) 2021-[facility]-10 [facility] Prevnar 20 (PCV20) Prevnar 20 (PCV20) 2021-10-10 [facility] Prevnar 20 (PCV20) Prevnar 20 (PCV20) 2021-10-10 [facility] Prevnar 20 (PCV20) Prevnar 20 (PCV20) 2021-10-10 [facility] Prevnar 20 (PCV20) Prevnar 20 (PCV20) 2021-10-10 [facility] Prevnar 20 (PCV20) Prevnar 20 (PCV20) 2021-10-10 [facility] Prevnar 20 (PCV20) Prevnar 20 (PCV20) 2021-10-10 [facility]00 [facility] COVID19 [facility] COVID19 2021-03-09 [facility] (Low Dose Vaccine (Low Dose 13:47:[address] [facility] Booster) [facility] COVID19 [facility] COVID-19 2021-03-09 Com[facility] (Low Dose Vaccine (Low Dose 13:47:[address] [facility]) Booster) [facility] COVID[address] [facility] (Low Dose Vaccine (Low Dose 13:47:00 - [facility] Booster) Booster) [facility] COVID[address] [facility]09 [facility] (Low Dose Vaccine (Low Dose 13:47:00 - [facility] Booster) Booster) [facility] COVID[address] [facility]-09 [facility] (Low Dose Vaccine (Low Dose 13:47:00 - [facility] Booster) Booster) [facility] COVID[address] [facility]-09 [facility] (Low Dose Vaccine (Low Dose 13:47:00 - [facility] Booster) Booster) [facility] COVID[address] [facility]-09 [facility] (Low Dose Vaccine (Low Dose 13:47:00 - [facility] Booster) Booster) [facility] COVID[address] [facility]-09 [facility] (Low Dose Vaccine (Low Dose 13:47:00 - [facility]oster) [facility]oster) [facility] [address] [facility]-09 [facility] (Low Dose Vaccine (Low Dose 13:47:00 - [facility] Booster) Booster) [facility] COVID[address] [facility]-09 [facility] (Low Dose Vaccine (Low Dose 13:47:00 - [facility] Booster) Booster) [facility] COVID[address] [facility]-09 [facility] (Low Dose Vaccine (Low Dose 13:47:00 - [facility] Booster) Booster) [facility] COVID[address] [facility]-09 [facility] (Low Dose Vaccine (Low Dose 13:47:00 - [facility] Booster) Booster) [facility] COVID[address] [facility]-09 [facility] (Low Dose Vaccine (Low Dose 13:47:00 - [facility] Booster) Booster) [facility] Moderna COVID-19 Moderna COVID-19 2021-03-09 Completed [facility] (Low Dose Vaccine (Low Dose 13:47:00 - [facility] Booster) Booster) [facility] FluAD FluAD 2021-03-01 [facility]00 [facility] FluAD FluAD 2021-03-01 [facility] 09:14[facility]00 [facility] FluAD FluAD 2021-03-01 [facility]pleted [facility] 09:14[facility]00 [facility] FluAD FluAD 2021-03-01 Completed [facility] 09:14[facility]00 [facility] FluAD FluAD 2021-03-01 [facility]pleted [facility] 09:14:00 [facility] FluAD FluAD 2021-03-01 Completed [facility] 09:14:00 [facility] FluAD FluAD 2021-03-01 Completed [facility] 09:14:00 [facility] FluAD FluAD 2021-03-01 Completed [facility] 09:14:00 [facility] FluAD FluAD 2021-03-01 Completed [facility] 09:14:00 [facility] FluAD FluAD 2021-03-01 [facility] 09:14:00 [facility] FluAD FluAD 2021-03-01 Completed [facility] 09:14:00 [facility] FluAD FluAD 2021-03-01 Completed [facility] 09[facility]14:00 [facility] FluAD FluAD 2021-03-01 Completed [facility] 09[facility]14:00 [facility] FluAD FluAD 2021-03-01 Completed [facility] 09[facility]14:00 [facility] FluAD FluAD 2021-03-01 Completed [facility] 09[facility]14:00 [facility] FluAD FluAD 2021-03-01 Completed [facility] 09:14:00 [facility] FluAD FluAD 2021-03-01 Completed [facility] 09:14:00 [facility] Moderna COVID-19 Moderna COVID-19 2020-08-21 Completed [facility] 10:25:00 - [facility] Moderna COVID-19 Moderna COVID-19 2020-08-21 Completed [facility] 10:25:00 - [facility] Moderna COVID-19 Moderna COVID-19 2020-08-21 Completed [facility] 10:25:00 - [facility] Moderna COVID-19 Moderna COVID-19 2020-08-21 Completed [facility] 10:25:00 - [facility] Moderna COVID-19 Moderna COVID-19 2020-08-21 Completed [facility] 10:25:00 - [facility] Moderna COVID-19 Moderna COVID-19 2020-08-21 Completed [facility] Vaccine Vaccine 10:25:00 - [facility] Moderna COVID-19 Moderna COVID-19 2020-08-21 Completed [facility] Vaccine Vaccine 10:25:00 - [facility] Moderna COVID-19 Moderna COVID-19 2020-08-21 Completed [facility] Vaccine Vaccine 10:25:00 - [facility] Moderna COVID-19 Moderna COVID-19 2020-08-21 Completed [facility] Vaccine Vaccine 10:25:00 - [facility] Moderna COVID-19 Moderna COVID-19 2020-08-21 Completed [facility] Vaccine Vaccine 10:25:00 - [facility] Moderna COVID-19 Moderna COVID-19 2020-08-21 Completed [facility] Vaccine Vaccine 10:25:00 - [facility] Moderna COVID-19 Moderna COVID-19 2020-08-21 Completed [facility] Vaccine Vaccine 10:25:00 - [facility] Moderna COVID-19 Moderna COVID-19 2020-08-21 Completed [facility] Vaccine Vaccine 10:25:00 - [facility] Moderna COVID-19 Moderna COVID-19 2020-08-21 Completed [facility] Vaccine Vaccine 10:25:00 - [facility] Moderna COVID-19 Moderna COVID-19 2020-07-24 Completed [facility] Vaccine Vaccine 10:24:00 - [facility] Moderna COVID-19 Moderna COVID-19 2020-07-24 Completed [facility] Vaccine Vaccine 10:24:00 - [facility] Moderna COVID-19 Moderna COVID-19 2020-07-24 Completed [facility] Vaccine Vaccine 10:24:00 - [facility] Moderna COVID-19 Moderna COVID-19 2020-07-24 Completed [facility] Vaccine Vaccine 10:24:00 - [facility] Moderna COVID-19 Moderna COVID-19 2020-07-24 Completed [facility] Vaccine Vaccine 10:24:00 - [facility] Moderna COVID-19 Moderna COVID-19 2020-07-24 Completed [facility] Vaccine Vaccine 10:24:00 - [facility] Moderna COVID-19 Moderna COVID-19 2020-07-24 Completed [facility] Vaccine Vaccine 10:24:00 - [facility] Moderna COVID-19 Moderna COVID-19 2020-07-24 Completed [facility] Vaccine Vaccine 10:24:00 - [facility] Moderna COVID-19 Moderna COVID-19 2020-07-24 Completed [facility] Vaccine Vaccine 10:24:00 - [facility] Moderna COVID-19 Moderna COVID-19 2020-07-24 Completed [facility] Vaccine Vaccine 10:24:00 - [facility] Moderna COVID-19 Moderna COVID-19 2020-07-24 Completed [facility] Vaccine Vaccine 10:24:00 - [facility] Moderna COVID-19 Moderna COVID-19 2020-07-24 Completed [facility] Vaccine Vaccine 10:24:00 - [facility] Moderna COVID-19 Moderna COVID-19 2020-07-24 Completed [facility] Vaccine Vaccine 10:24:00 - [facility] Moderna COVID-19 Moderna COVID-19 2020-07-24 Completed [facility] Vaccine Vaccine 10:24:00 - [facility] Moderna COVID-19 Moderna COVID-19 2020-07-01 Completed [facility] Vaccine Vaccine 10:25:00 - [facility] Moderna COVID-19 Moderna COVID-19 2020-07-01 Completed [facility] Vaccine Vaccine 10:25:00 - [facility] Moderna COVID-19 Moderna COVID-19 2020-07-01 Completed [facility] Vaccine Vaccine 10:25:00 - [facility] Moderna COVID-19 Moderna COVID-19 2020-05-31 Completed [facility] Vaccine Vaccine 10:24:00 - [facility] Moderna COVID-19 Moderna COVID-19 2020-05-31 Completed [facility] Vaccine Vaccine 10:24:00 - [facility] Moderna COVID-19 Moderna COVID-19 2020-05-31 Completed [facility] Vaccine Vaccine 10:24:00 [facility] Vital Signs Vital Name Observation Time Observation Value Comments Source WEIGHT 2020-02-18 05:00:00 57 kg WEIGHT 2020-02-17 05:00:00 60.2 kg HEIGHT 2020-02-16 10:20:00 158.8 cm WEIGHT 2020-02-16 10:20:00 57.199 kg HEIGHT 2020-02-13 10:35:00 158.8 cm WEIGHT 2020-02-13 10:35:00 57.607 kg height 2022-04-25 15:00:00 62 [in_i] [facility] weight 2022-04-25 15:00:00 135 [lb_av] [facility] temperature 2022-04-25 15:00:00 97.4 [degF] [facility] bmi 2022-04-25 15:00:00 24.69 kg/m2 [facility] blood pressure 2022-04-25 15:00:00 130 mm[Hg] [facility] - systolic [facility] blood pressure 2022-04-25 15:00:00 72 mm[Hg] [facility] - diastolic [facility] height 2021-12-16 08:10:00 62 [in_i] Common S pirit - [facility] weight 2021-12-16 08:10:00 134 [lb_av] Common S [facility]irit [facility] temperature 2021-12-16 08:10:00 98 [degF] Common S pirit - [facility] bmi 2021-12-16 08:10:00 24.51 kg/m2 Common S pirit - [facility] blood pressure 2021-12-16 08:10:00 131 mm[Hg] [facility] - systolic [facility] blood pressure 2021-12-16 08:10:00 76 mm[Hg] [facility] - diastolic [facility] height 2021-10-10 10:40:00 62 [in_i] Common S pirit [facility] weight 2021-10-10 10:40:00 134.9 [lb_av] [facility] temperature 2021-10-10 10:40:00 97.2 [degF] Common S pirit [facility] bmi 2021-10-10 10:40:00 24.67 kg/m2 [facility] oximetry 2021-10-10 10:40:00 99 % [facility] respiratory rate 2021-10-10 10:40:00 17 /min Comm on Spirit - [facility] blood pressure 2021-10-10 10:40:00 132 mm[Hg] [facility] - systolic [facility] blood pressure 2021-10-10 10:40:00 68 mm[Hg] [facility] - diastolic [facility] height 2021-10-10 10:40:00 62.75 [in_i] [facility] weight 2021-10-10 10:40:00 134.9 [lb_av] [facility] temperature 2021-10-10 10:40:00 97.2 [degF] Common S pirit [facility] bmi 2021-10-10 10:40:00 24.08 kg/m2 Common [facility] oximetry 2021-10-10 10:40:00 99 % Common S [facility] respiratory rate 2021-10-10 10:40:00 17 /min [facility] blood pressure 2021-10-10 10:40:00 132 mm[Hg] [facility] - systolic [facility] blood pressure 2021-10-10 10:40:00 68 mm[Hg] [facility] - diastolic [facility] height 2021-09-07 13:40:00 62.75 [in_i] Common [facility] weight 2021-09-07 13:40:00 136.9 [lb_av] Common [facility] bmi 2021-09-07 13:40:00 24.44 kg/m2 [facility] height 2021-06-20 10:50:00 62.75 [in_i] Common S [facility] weight 2021-06-20 10:50:00 136.9 [lb_av] [facility] temperature 2021-06-20 10:50:00 97.0 [degF] Common S [facility] bmi 2021-06-20 10:50:00 24.44 kg/m2 [facility] oximetry 2021-06-20 10:50:00 95 % [facility] respiratory rate 2021-06-20 10:50:00 17 /min [facility] blood pressure 2021-06-20 10:50:00 120 mm[Hg] Common [facility] - systolic [facility] blood pressure 2021-06-20 10:50:00 55 mm[Hg] Common [facility] - diastolic [facility] height 2021-06-09 10:00:00 62.75 [in_i] [facility] weight 2021-06-09 10:00:00 126 [lb_av] [facility] temperature 2021-06-09 10:00:00 98.2 [degF] Common S pirit - [facility] bmi 2021-06-09 10:00:00 22.5 kg/m2 [facility] blood pressure 2021-06-09 10:00:00 118 mm[Hg] [facility] - systolic [facility] blood pressure 2021-06-09 10:00:00 72 mm[Hg] [facility] - diastolic [facility] height 2021-03-22 11:10:00 62.75 [in_i] Common [facility] weight 2021-03-22 11:10:00 130 [lb_av] [facility] temperature 2021-03-22 11:10:00 98 [degF] [facility] bmi 2021-03-22 11:10:00 23.21 kg/m2 [facility] blood pressure 2021-03-22 11:10:00 115 mm[Hg] [facility] - systolic [facility] blood pressure 2021-03-22 11:10:00 76 mm[Hg] [facility] - diastolic [facility] height 2021-03-01 08:40:00 62.75 [in_i] Common [facility] weight 2021-03-01 08:40:00 134.7 [lb_av] Common [facility] temperature 2021-03-01 08:40:00 98.1 [degF] [facility] bmi 2021-03-01 08:40:00 24.05 kg/m2 [facility] oximetry 2021-03-01 08:40:00 97 % [facility] respiratory rate 2021-03-01 08:40:00 17 /min [facility] blood pressure 2021-03-01 08:40:00 110 mm[Hg] Common [facility] - systolic [facility] blood pressure 2021-03-01 08:40:00 54 mm[Hg] Common [facility] - diastolic [facility] height 2021-03-01 08:40:00 62.75 [in_i] [facility] weight 2021-03-01 08:40:00 134.7 [lb_av] [facility] temperature 2021-03-01 08:40:00 98.1 [degF] [facility] bmi 2021-03-01 08:40:00 24.05 kg/m2 [facility] oximetry 2021-03-01 08:40:00 97 % [facility] respiratory rate 2021-03-01 08:40:00 17 /min [facility] blood pressure 2021-03-01 08:40:00 110 mm[Hg] Common [facility] - systolic [facility] blood pressure 2021-03-01 08:40:00 54 mm[Hg] Common [facility] - diastolic [facility] WEIGHT 2020-02-18 05:00:00 57 kg WEIGHT 2020-02-17 05:00:00 60.2 kg HEIGHT 2020-02-16 10:20:00 158.8 cm WEIGHT 2020-02-16 10:20:00 57.199 kg HEIGHT 2020-02-13 10:35:00 158.8 cm WEIGHT 2020-02-13 10:35:00 57.607 kg Systolic (mm Hg) 2021-06-22 14:28:00 Rob rial [place] Diastolic (mm Hg) 2021-06-22 14:28:00 Mem orial [place] Heart Rate 2021-06-22 14:28:00 [facility] [place] Respitory Rate 2021-06-22 14:28:00 Memori al [place] Height 2021-06-22 14:28:00 157.48 cm [facility] [place] Weight 2021-06-22 14:28:00 [facility] [place] BMI Calculated 2021-06-22 14:28:00 Memori al [place] Systolic (mm Hg) 2020-10-27 16:06:00 Rob rial [place] Diastolic (mm Hg) 2020-10-27 16:06:00 Mem orial [place] Heart Rate 2020-10-27 16:06:00 [facility] [place] Respitory Rate 2020-10-27 16:06:00 Memori al [place] Height 2020-10-27 16:06:00 157.48 cm [facility] Weight 2020-10-27 16:06:00 [facility] [place] BMI Calculated 2020-10-27 16:06:00 Memori al [place] Systolic (mm Hg) 2020-09-08 21:24:00 Rob rial [place] Diastolic (mm Hg) 2020-09-08 21:24:00 Mem orial [place] Heart Rate 2020-09-08 21:24:00 [facility] [place] Respitory Rate 2020-09-08 21:24:00 Memori al [place] Height 2020-09-08 21:24:00 157.48 cm [facility] [place] Weight 2020-09-08 21:24:00 [facility] [place] BMI Calculated 2020-09-08 21:24:00 Memori al [place] Height 2020-01-28 12:43:00 158.75 cm [facility] [place] Weight 2020-01-28 12:43:00 [facility] [place] BMI Calculated 2020-01-28 12:43:00 Memori al [place] Height 2020-01-26 18:22:00 157.48 cm [facility] Weight 2020-01-26 18:22:00 [facility] [place] BMI Calculated 2020-01-26 18:22:00 Memori al [place] Procedures This patient has no known procedures. Plan of Care Planned Activity Planned Date Details Comments Source Future Scheduled 2022-12-01 Influenza Vaccine (#1) [facility] 00:00:00 [code = Influenza Medical Ce nter Vaccine (#1)] Future Scheduled 2022-04-[address] [facility] 00:00:00 (12+) [code = Medical Center DEPRESSION SCREENING (12+)] Future Scheduled 2022-04-02 FALLS RISK SCREENING [facility] 00:00:00 [code = FALLS RISK Medical C enter SCREENING] Future Scheduled 2021-05-04 COVID-19 VACCINE (6 - [facility] 00:[facility]00 Booster for [facility] series) [code = COVID-19 VACCINE (6 - Booster for Moderna series)] Future Scheduled 2021-02-[address] [facility] 00:00:00 Counseling and Medical Cente r Screening (12+) [code = Tobacco Cessation Counseling and Screening (12+)] Future Scheduled 2019-04-[address] [facility] 00:00:00 WELLNESS (YEAR 2 or Medical Center FIRST YEAR if no IPPE) [code = MEDICARE ANNUAL WELLNESS (YEAR 2 or FIRST YEAR if no IPPE)] Future Scheduled 2001 SHINGLES VACCINES ([address] [facility] 00:00:00 2) [code = SHINGLES Medical Center VACCINES (1 of 2)] Future Scheduled 1970 DTAP/TDAP/TD VACCINES [facility] 00:00:00 (1 - Tdap) [code = Medical C enter DTAP/TDAP/TD VACCINES (1 - Tdap)] Future Scheduled 1969 HEPATITIS C SCREENING [facility] 00:00:00 [code = HEPATITIS C Medical Center SCREENING] Future Scheduled 1957 PNEUMOCOCCAL 65+ YRS ([address] [facility] 00:00:00 - PCV) [code = Medical Cente r PNEUMOCOCCAL 65+ YRS (1 - PCV)] Future Scheduled 1951 Screening for malignant [facility] 00:00:00 neoplasm of breast Medical C enter (procedure) [code = 249040767] Future Scheduled 1951 CT Colonography (combo) [facility] 00:00:00 [code = CT Colonography [facility] (combo)] Future Scheduled 1951 Screening for malignant [facility] 00:00:00 neoplasm of colon Medical Ce nter (procedure) [code = 063320411] Future Scheduled 1951 Screening for malignant [facility] 00:00:00 neoplasm of colon Medical Ce nter (procedure) [code = 915101161] Future Scheduled 1951 DXA SCAN [code = DXA [facility] 00:00:00 SCAN] [facility] Future Scheduled 1951 Screening for malignant [facility] 00:00:00 neoplasm of colon Medical Ce nter (procedure) [code = 431106937] Future Scheduled 1951 Screening for malignant [facility] 00:00:00 neoplasm of colon Medical Ce nter (procedure) [code = 828439978] Future Scheduled 1951 Sigmoidoscopy [code = [facility] 00:[facility]:00 Sigmoidoscopy] Medical Johanny r Encounters Start End Encounter Admission Attending Care Care Encounter Source Date/Time Date/Time Type Type Clinicians Facility Department ID 2022-10-27 Outpatient Wolf, STLMLC STLMLC [id number] Common 09:53:00 Doug 536[facility] 2022-07-18 Outpatient Wolf, STLMLC STLMLC [id number] Common 15:09:00 Doug 33342 [facility] 2021-10-10 Outpatient Wolf, STLMLC STLMLC [id number] Common 10:44:00 Doug [facility] 2021-09-06 Outpatient Wolf, STLMLC STLMLC [id number] Common 13:45:00 Doug [facility] 2021-05-27 Outpatient Wolf, STLMLC STLMLC [id number] Common 08:33:02 Doug [facility] 2021-05-25 Outpatient Wolf, STLMLC STLMLC [id number] Common 10:20:01 Doug [facility] 2021-04-27 Outpatient Wolf, STLMLC STLMLC [id number] Common 14:26:46 Doug 42014 [facility] 2021-04-27 Outpatient Wolf, STLMLC STLMLC [id number] Common 14:23:29 Doug 07734 [facility] 2021-04-27 Outpatient Wolf, STLMLC STLMLC [id number] Common 14:22:22 Doug 05776 [facility] 2021-04-27 Outpatient Wolf, STLMLC STLMLC [id number] Common 12:47:28 Doug 61623 [facility] 2021-04-27 Outpatient Wolf, STLMLC STLMLC [id number] Common 12:20:26 [facility] [address] [facility] 2021-04-27 Outpatient Wolf, [facility] [id number] Common 11:17:11 Doug 24115 [facility] 2021-04-27 Outpatient Luciano [facility]ER [facility] [id number] Common 11:15:28 Doug 71321 [facility] 2021-01-06 Inpatient CARROTT, [facility] Surgery [id number] [facility] 11:01:25 MIGUEL ANGEL 2022-10-03 2022-10-03 Outpatient GC_SWHAOMC_ PRIV PRIV [id number] [facility] 00:00:00 00:00:00 Ana Laura [id number] Medic al 2022-10-02 2022-10-02 Outpatient GC_SWHATBIC PRIV PRIV [id number] [facility] 00:00:00 00:00:00 _Ana Laura [id number] [facility] 2022-09-29 2022-09-29 Outpatient GC_SWHATBIC PRIV PRIV [id number] [facility] 00:00:00 00:00:00 _Ana Laura [id number] [facility] 2022-09-27 2022-09-27 Outpatient GC_SWHATBIC PRIV PRIV [id number] [facility] 00:00:00 00:00:00 _Ana Laura [id number] [facility] 2022-09-09 2022-09-09 Outpatient GC_SWHAOMC_ PRIV PRIV [id number] [facility] 00:00:00 00:00:00 Ana Laura [id number] Medic al 2022-06-22 2022-06-22 Ambulatory MHIE MNA [id number] [facility] 19:00:00 19:00:00 Pre-Reg Neurology 05 l Rosas Moffett 2022-06-22 2022-06-22 Ambulatory MHIE MNA [id number] [facility] 19:00:00 19:00:00 Pre-Reg Neurology 05 l Hamblen Zuhair 2022-06-22 2022-06-22 Outpatient MHIE MHIE [id number] [facility] 14:00:00 14:00:00 05 l Zuhair 2022-06-22 2022-06-22 Outpatient PRUD[facility]IO [facility] [id number] 14:00:00 14:00:00 Azar Mahoney 2022-04-25 2022-04-25 OFFICE STLMLC STLMLC [id number] Co [facility]mon 00:00:00 00:00:00 VISIT Spirit ESTAB PT - CHI LEVEL 4 [facility] 2021-12-23 2021-12-23 (TEL) STLMLC STLMLC [id number] Co mmon 00:00:00 00:00:00 Spirit - CHI [facility] 2021-12-16 2021-12-16 OFFICE STLMLC STLMLC [id number] Co [facility]mon 00:00:00 00:00:00 VISIT Spirit ESTAB PT - CHI LEVEL 4 [facility] 2021-10-13 2021-10-13 (TEL) STLMLC STLMLC [id number] Co mmon 00:00:00 00:00:00 Spirit - CHI [facility] 2021-10-10 2021-10-10 OFFICE STLMLC STLMLC [id number] Co mmon 00:00:00 00:00:00 VISIT Spirit ESTAB PT - CHI LEVEL 4 [facility] 2021-10-10 2021-10-10 SUB ANNUAL STLMLC STLMLC [id number] Common 00:00:00 00:00:00 MCR Spirit WELLNESS - CHI VISIT [facility] 2021-09-07 2021-09-07 OL DIG E/M STLMLC STLMLC [id number] Common 00:00:00 00:00:00 [facility] 11-20 Spir it MIN - CHI [facility] 2021-09-07 2021-09-07 (TEL) STLMLC STLMLC [id number] Co mmon 00:00:00 00:00:00 Spirit - [facility] 2021-09-05 2021-09-05 (TEL) STLMLC STLMLC [id number] Co mmon 00:00:00 00:00:00 Spirit - [facility] 2021-06-22 2021-06-23 Outpatient nullFlavo MNA [id number] [facility] 14:15:00 04:59:59 r Neurology 04 l Hamblen Zuhair 2021-06-222021-06-23 Outpatient nullFlavo MNA [id number] [facility] 14:15:00 04:59:59 r Neurology 04 levi Peterann 2021-06-22 2021-06-22 Outpatient PHOEBE Fowler [id number] 09:15:00 23:59:59 Azar 04 Denzel 2021-06-22 2021-06-22 Outpatient MHIE GARCIAIE [id number] [facility] 09:15:00 09:15:00 04 levi Zuhair 2021-06-20 2021-06-20 OFFICE STLMLC STLMLC [id number] Co mmon 00:00:00 00:00:00 VISIT Spirit ESTAB PT - CHI LEVEL 4 [facility] 2021-06-14 2021-06-14 [facility]patient [facility] PRIV PRIV [id number] [facility] 09:13:00 09:13:00 Jean_Thu [id number] Medic al 2021-06-09 2021-06-09 OFFICE STLMLC STLMLC [id number] Co mmon 00:00:00 00:00:00 VISIT Spirit ESTAB PT - CHI LEVEL 4 [facility] 2021-03-22 2021-03-22 OFFICE STLMLC STLMLC [id number] Co mmon 00:00:00 00:00:00 VISIT Spirit ESTAB PT - CHI LEVEL 4 [facility] 2021-03-09 2021-03-09 (COVID STLMLC STLMLC [id number] Co mmon 00:00:00 00:00:00 Inj) COVID Spi rit Injection - CHI [facility] 2021-03-04 2021-03-04 (TEL) STLMLC STLMLC [id number] Co mmon 00:00:00 00:00:00 Spirit - CHI [facility] 2021-03-01 2021-03-01 SUB ANNUAL STLMLC STLMLC [id number] Common 00:00:00 00:00:00 MCR Spirit WELLNESS - CHI VISIT [facility] 2021-03-01 2021-03-01 OFFICE STLMLC STLMLC [id number] Co mmon 00:00:00 00:00:00 VISIT Spirit ESTAB PT - CHI LEVEL 4 [facility] 2021-01-27 2021-01-27 Ambulatory nullFlavo MNA [id number] Memoria 16:15:00 16:15:00 Pre-Reg r Neurology 03 levi Moffett 2021-01-27 2021-01-27 Ambulatory nullFlavo MNA [id number] Memoria 16:15:00 16:15:00 Pre-Reg r Neurology 03 levi Moffett 2021-01-27 2021-01-27 Outpatient MHIE MHIE [id number] [facility] 11:15:00 11:15:00 03 levi Moffett 2021-01-27 2021-01-27 [id number] 11:15:00 11:15:00 Azar Bo Mahoney 2020-10-27 2020-10-28 Outpatient nullFlavo MNA [id number] Mem[facility] 15:45:00 04:59:59 r Neurology 02 levi Moffett 2020-10-27 2020-10-28 Outpatient nullFlavo MNA [id number] [facility] 15:45:00 04:59:59 r Neurology 02 levi Moff[place] 2020-10-27 2020-10-27 [id number] 10:45:00 23:59:59 Azar Yassine Mahoney 2020-10-27 2020-10-27 Outpatient MHIE MHIE [id number] [facility] 10:45:00 10:45:00 02 levi Moff[place] 2020-10-20 2020-10-20 Ambulatory nullFlavo MNA [id number] Memoria 18:30:00 18:30:00 Pre-Reg r Neurology 01 levi Moffett 2020-10-20 2020-10-20 Ambulatory nullFlavo MNA [id number] [facility]oria 18:30:00 18:30:00 Pre-Reg r Neurology 01 levi Moffett 2020-10-20 2020-10-20 Outpatient MHIE MHIE [id number] [facility] 13:30:00 13:30:00 01 levi Moffett 2020-10-20 2020-10-20 Outpatient PHOEBE Fowler [facility] [id number] 13:30:00 13:30:00 Azar 01 Denzel 2020-09-08 2020-09-09 Outpatient nullFlavo MNA [id number] Memoria 21:00:00 04:59:59 r Neurology 00 l Rosas [place] 2020-09-08 2020-09-09 Outpatient nullFlavo MNA [id number] Memoria 21:00:00 04:59:59 r Neurology 00 l Rosas [place] 2020-09-08 2020-09-08 Outpatient PHOEBE Fowler [facility] [id number] 16:00:00 23:59:59 Azar 00 Denzel 2020-09-08 2020-09-08 Outpatient MHIE HILDA [id number] [facility]oria 16:00:00 16:00:00 00 l Zuhair 2020-07-05 2020-07-05 Outpatient STLMLC STLMLC [id number] Common 00:00:00 00:00:00 [facility] 2020-06-21 2020-06-21 Outpatient STLMLC STLMLC [id number] Common 00:00:00 00:00:00 [facility] 2020-06-17 2020-06-17 Outpatient STLMLC STLMLC [id number] Common 00:00:00 00:00:00 [facility] 2020-06-17 2020-06-17 Outpatient STLMLC STLMLC [id number] Common 00:00:00 00:00:00 [facility] 2020-04-16 2020-04-16 Outpatient STLMLC STLMLC [id number] Common 00:00:00 00:00:00 [facility] 2020-04-05 2020-04-05 Outpatient STLMLC STLMLC [id number] Common 00:00:00 00:00:00 [facility] 2020-03-15 2020-03-15 Outpatient STLMLC STLMLC [id number] Common 00:00:00 00:00:00 [facility] 2020-03-02 2020-03-02 Outpatient VICKIE SEQUEIRA SLE [id number] SLEH 00:00:00 00:00:00 JIM 2020-02-24 2020-02-24 Outpatient STLMLC STLMLC [id number] Common 00:00:00 00:00:00 [facility] 2020-02-20 2020-02-20 Outpatient STLMLC STLMLC [id number] Common 00:00:00 00:00:00 [facility] 2020-02-13 2020-02-13 Outpatient EL SLEH SLEH [id number] [facility] 00:00:00 00:00:00 2020-02-13 2020-02-13 Outpatient EL SLEH SLEH [id number] [facility] 00:00:00 00:00:00 2020-02-10 2020-02-10 Outpatient STLMLC STLMLC [id number] Common 00:00:00 00:00:00 [facility] 2020-01-28 2020-01-28 [facility] [id number] Memoria 11:45:00 17:15:00 r Zuhair Vargas [facility] 2020-01-28 2020-01-28 Outpatient [facility] [id number] Memoria 11:45:00 17:15:00 r Zuhair Vargas l [facility] 2020-01-28 2020-01-28 Outpatient HOLLY, MHBL PUL [id number] MHBL 06:45:00 12:15:00 CARISSA 2020-01-28 2020-01-28 Outpatient Holly, MHPL MHPL [id number] 06:45:00 12:15:00 Carissa K 04 2020-01-28 2020-01-28 Outpatient Holly, MHPL MHPL [id number] 06:45:00 12:15:00 Carissa K 04 2019-12-25 2019-12-25 Outpatient STLMLC STLMLC [id number] Common 00:00:00 00:00:00 [facility] 2019-12-25 2019-12-25 Outpatient STLMLC STLMLC [id number] Common 00:00:00 00:00:00 [facility] 2019-12-16 2019-12-16 Outpatient STLMLC STLMLC [id number] Common 00:00:00 00:00:00 [facility] 2019-12-11 2019-12-11 Out[facility] [id number] Common 10:30:00 10:30:00 [facility] [facility] 2019-12-09 2019-12-09 [facility] [id number] Common 10:20:00 10:20:[address] [facility] 2019-11-24 2019-11-24 [facility] [id number] Common 14:25:00 14:25:[address] [facility] 2019-11-17 2019-11-17 [facility] [id number] Common 15:34:00 15:34:[address] [facility] 2019-10-31 2019-10-31 [facility] [id number] Common 11:29:00 11:29:[address] [facility] 2019-09-11 2019-09-11 [facility] [id number] Common 11:00:00 11:00:00 t [facility] 2019-09-05 2019-09-05 [facility] [id number] Common 11:15:00 11:15:[address] [facility] 2019-09-05 2019-09-05 [facility] [id number] Common 11:00:00 11:00:[address] [facility] 2019-07-30 2019-07-30 [facility] [id number] Common 11:00:00 11:00:00 t Bone Bone and Spiri t and Joint [facility] - [facility] 2019-07-25 2019-07-25 [facility] 30 [id number] Common 10:09:00 10:09:00 t Bone Bone and Spiri t and Joint Joint - [facility] 2019-07-03 2019-07-03 [facility] [id number] Common 13:30:00 13:30:00 t Bone Bone and Spiri t and Joint Joint - [facility] 2019-06-26 2019-06-26 [facility] [id number] Common 10:09:00 10:09:00 t [facility] Bone and Spiri t and Joint Joint [facility] 2019-06-24 2019-06-24 [facility] [id number] Common 11:00:00 11:00:[address] Family - [facility] Family Medicine [facility] 2019-06-24 2019-06-24 [facility] 30 [id number] Common 07:40:00 07:40:00 t Bone Bone and Spiri t and Joint Joint [facility] Results Test Test Test Comments Results Result Source Description Time Comments RAD, CHEST, 2 2020-03- Reason for VIEWS 01 Exam:->Primary lung 14:03:00 [facility] 1950 Sex: F FINAL [...] effusion versus pleural thickening. Signed: Regis Gonzales MDReport Verified Date/Time: 03/02/2020 14:03:46 Reading Location: [facility] Reading Room [address] [place] [address] UE EXAM 2020-02- Surgical Pathology 20 Report Case: [id number] 19:59:00 Authorizing Provider: Miguel Angel Pittman Collected: 02/16/2020 03:27 PM Danya Abad MD Ordering Location: [facility] Received: 02/16/2020 04:41 PM PERIOPERATIVE SERVICES Pathologist: Dean Lucia MD Specimens: A) - Lung, Left, Left Lingular Segmentectomy B) - Lymph Node, Interlobar, Left, Station 11L C) - Lymph Node, Interlobar, Left, Station 11L, Station 11L #2 D) - Lymph Node, Subaortic (Aorto-Pulmonary Window), Station 5 E) - Lymph Node, Subcarinal, Station 7 A. LUNG, LEFT LINGULA, SEGMENTECTOMY: - INVASIVE ADENOCARCINOMA, ACINAR PREDOMINANT ~ GREATEST TUMOR DIMENSION: 1.5 CM ~ TUMOR FOCALLY INVOLVES THE SURFACE OF VISCERAL PLEURA, PL2 (SEE COMMENT) ~ PARENCHYMAL MARGIN FREE, 2.7 CM ~ NO LYMPHOVASCULAR INVASION IDENTIFIED ~ NO PERINEURAL INVASION IDENTIFIED ~ PATHOLOGIC STAGE CLASSIFICATION (pTNM, AJCC 8th Edition): pT2 pN0 pMX - TWO NEUROENDOCRINE TUMORLETS, 0.2 CM AND 0.3 CM IN GREATEST DIMENSION (SEE COMMENT)B. LYMPH NODE, LEFT INTERLOBR STATION 11L, BIOPSY: - ONE BENIGN LYMPH NODE (0/1)C. LYMPH NODE, LEFT INTERLOBR STATION 11L, BIOPSY: - ONE BENIGN LYMPH NODE (0/1)D. LYMPH NODE, SUBAORTIC STATION 5, BIOPSY: - ONE BENIGN LYMPH NODE (0/1)E. LYMPH NODE, SUBCARINAL STATION 7, BIOPSY: - ONE BENIGN LYMPH NODE (0/1) Signing Pathologist Direct Phone Line: [phone] lly signed by Dean Lucia MD on 02/20/2020 [...] A)8th Edition - Protocol posted: 05/28/2019SPECIMEN Procedure: Segmentectomy Specimen Laterality: Left TUMOR Tumor [...] pN0 ADDITIONAL FINDINGS Additional Findings: neuroendocrine tumorlets 79543, 76569 x 4, 11834, 31276 x 2, 01703 x 2carcinoma of lung, leftLung, left, lymph node intralobular left station 11L, lymph node intralobular left station 11L, lymph node subaortic (aortopulmonary window) station 5, and lymph node subcarinal station 7A. Received fresh labeled with the patient's name, accession number and "lung, left lingular segment segmentectomy" is a 36 gm after formalin fixation, 9.0 x 7.0 x 3.3 [...] The remaining uninvolved parenchyma is carlos-red and spongy.Mine Promotor sections are submitted.Ink code:Yellow-resection marginBlue-pleura overlying puckeringSection code:A1-margin, en face A2-A6-mass serially sectioned, entirely A7- pleural and parenchymal nodulesA8-uninvolved parenchymaB. Received fresh labeled with the patient's name, accession number and "lymph node, intralobular, left, station 11L" is a 0.8 x 0.5 x 0.3 cm, black, irregular tissue fragment [...] this case included the use of immunohistochemistry or special stains.Block A5TTF1- positive in tumorBlock A4 - EVG, TTF-1, CalretininThe tumor cell stain positive for TTF-1 and the tumor cells on the visceral pleura are positive for TTF1 and negative for calretininEVG highlights tumor at external elastic layer of the pleura; however invasion through the elastic layer is not identified.Block A7- Synaptophysin, ChromograninThe two small tumorlets stain positive for synaptophysin and chromogranin. Control Slides Examined: In-house known positive controls were evaluated along with the test tissue. These control slides run alongside of the patients sample show appropriate staining. Internal positive and negative controls when available are evaluated Immunohistochemistry technical testing was performed at [facility], Pathology Laboratory where it was developed and its performance characteristics were determined. It has not been cleared or approved by the U.S. Food and Drug Administration. The FDA has determined that such clearance or approval is not necessary. The test is used for clinical purposes. It should not be regarded as investigational or for research. This laboratory is certified under the Clinical Laboratory Improvement Amendments of 1988 (CLIA-88) as qualified to perform high complexity clinical laboratory testing.[facility], Department of Pathology, [address] [place], [place] [id number], [facility], [address] [place] [address], [facility], [address] [place] [address], RAD, CHEST, 2020-02- Reason for exam:->s/p * VIEW, NON DEPT 18 left VATS 09:25:[address] this be performed at [facility] the bedside?->Yes CENTERName: SANCHO NIETO : 1950 Sex: F FINAL REPORT CLINICAL HISTORY: s/p left VATS lingulectomy TECHNIQUE: 1 view of the chest. COMPARISON: 02/17/2020 IMPRESSION: Focal opacity around left perihilar chain sutures is unchanged. A small left pleural effusion is unchanged. The right lung remains well-aerated. The cardiomediastinal silhouette is magnified by technique. There is no pneumothorax. Signed: Regis Huerta Verified Date/Time: 02/18/2020 09:25:45 Reading Location: [facility] Radiology Reading Room , CHEST, 1 2020-02- Reason for exam:->CT VIEW, NON DEPT 17 removal 14:20:00 [facility] CENTERName: SANCHO NIETO : 1950 Sex: F FINAL REPORT CLINICAL HISTORY: CT removal TECHNIQUE: 1 view of the chest. COMPARISON: 02/17/2020 IMPRESSION: The left chest tube has been removed. There is no definite pneumothorax. Focal opacity surrounding left perihilar chain sutures is unchanged. A trace left pleural effusion is again seen. The right lung remains relatively well-aerated. There is no significant cardiomegaly. Left shoulder hardware is again seen. Signed: Regis Huerta Verified Date/Time: 02/17/2020 14:20:04 Reading Location: [facility] Radiology Reading Room , CHEST, 1 2020-02- Reason for exam:->s/p * VIEW, NON DEPT 17 left VATS 04:37:[address] this be performed at [facility] the bedside?->Yes CENTERName: SANCHO NIETO : 1950 Sex: F FINAL REPORT Chest one view. Clinical history: s/p left VATS lingulectomy Comparison: Chest radiograph 02/16/2020. Technique: A single frontal view of the chest was obtained. Findings:There is a left chest tube with tip in the left lung apex.The cardiomediastinal contours are stable. There are surgical sutures in the left perihilar region. There is opacity in the left perihilar region compatible with subsegmental/discoid atelectasis. There is a small left pleural effusion. There is no pneumothorax. There is a left total shoulder arthroplasty with a glenoid screw. Signed: Dakota Vega MDReport Verified Date/Time: 02/17/2020 04:37:09 C METABOLIC PANEL 2020-02-17 03:58:00 Test Item Value Reference Range Interpretation Comme nts SODIUM (BEAKER) (test code 137 meq/L 136-145 = 381) POTASSIUM (BEAKER) (test 4.5 meq/L 3.5-5.1 code = 379) CHLORIDE (BEAKER) (test 104 meq/L 98-107 code = 382) CO2 (BEAKER) (test code = 27 meq/L 22-29 355) BLOOD UREA NITROGEN 11 mg/dL 7-21 (BEAKER) (test code = 354) CREATININE (BEAKER) (test 0.75 mg/dL 0.57-1.25 code = 358) GLUCOSE RANDOM (BEAKER) 112 mg/dL 70-105 H (test code = 652) CALCIUM (BEAKER) (test code 8.7 mg/dL 8.4-10.2 = 697) EGFR (BEAKER) (test code = 77 mL/min/1.73 sq m ESTIMATED GFR IS NOT 1092) ACCURATE CRE ATININE CLEARANCE IN GA EDICTING GLOMERULAR FILT RATION RATE. ESTIMATED GFR IS NOT APPLICABLE FOR DIALYSIS PATIENTS. Plant Quality Manager ID - [id number] 03:58:00 Test Item Value Reference Range Interpretation Comments MAGNESIUM (BEAKER) (test code = 1.9 mg/dL 1.6-2.6 627) Plant Quality Manager ID - EDASICBC W/PLT COUNT & AUTO [id number] 03:56:00 Test Item Value Reference Range Interpretation [...] = 2801) RAD, CHEST, 1 VIEW, NON [id number] 17:03:00Reason for exam:->s/p left lingulectomy, chest tube placementShould this be performed [facility] : 1950 Sex: FFINALREPORT Chest, 1 view. History: Status post left lingulectomy, chest tube placement. Comparison: 02/13/2020. IMPRESSION: Left-sided chest tube identified with tip terminating over the left apex. There are interval postsurgical changes compatible with reported history of lingulectomy with suture material identified projecting over the left mid hemithorax. Trace left-sided pleural effusion noted. Increased opacities noted within the left mid and lower lung zones which likely reflect atelectasis. There is no evidence for large focal consolidation or pneumothorax. The cardiomediastinal silhouette is stable in appearance. Partially visualized left shoulder prosthesis again noted. Noacute osseous abnormality is identified. Signed: Zay Ordaz MDReport Verified Date/Time: 02/16/2020 17:03:06 Reading Location: [facility] C013W Consult Reading Room POCT-GLUCOSE [id number] 10:35:00 Test Item Value Reference Range Interpretation Comments POC-GLUCOSE METER 92 mg/dL 70-110 : TESTED A T [facility] 6720 ([facility]) (test code = LAURA ROUSSEAU [place], 1538) [address]: Plant Quality Manager/Techni sung ID = [id number] for Leonie Solorzano SARS-COV2/RT-PCR ([facility])2020-02-14 07:53:00 Test Item Value Reference Range Interpretation Comments SARS-COV2/RT-PCR (test Negative Not Detected, Negative, code = 6064139) See external report for linked test SARS-COV-[address] [facility] FILIBERTO (test code = 5551232) Negative result for this test determines that [...] individuals suspected of COVID-19 by their healthcare provider.This test [...] justifying the authorization of the emergency use ofin vitro diagnostic tests for detection and/or diagnosis of COVID-19 is terminated under Section 564(b)(2) of the Act or the EUA is revoked under Section 564(g) of the Act.Testing was performed using the Hayden SARS-CoV-2 assay.Fact Sheet for Healthcare Providers:https://www.Screenhero.Acrinta/andrea/RT_SAR J-ShA-1_BPE_Ycmz_Itjhg_68-972284.pdfFact Sheet for Healthcare Patients:https://www.Screenhero.hayden/s al/WH_KORM-JiT-8_Kynexvl_Axyy_Utzqr_BO_46-286914H2.pdfPerforming Laboratory:[address] [place] [address] COMPREHENSIVE METABOLIC [id number] 16:28:00 Test Item Value Reference Range Interpretation [...] S NOT APPLICABLE FOR DIALYSIS PATIEN TS. Plant Quality Manager ID - ADMINRAD, CHEST, 2 [id number] 16:27:00Reason for exam:->pre-op evaluation Should this be performed at the bedside?->Yes [facility] CENTERName: SANCHO NIETO : 1950 Sex: FFINALREPORT TECHNIQUE: Frontal and lateral views of the chest. INDICATION: 69-year-old woman for preoperative evaluation. COMPARISON: None. FINDINGS: LINES/TUBES: None. LUNGS: Lungs arewell inflated. No consolidation or pulmonary edema. 1 x 1.2 cm nodule projects over the left midlungzone, likely in the left upper lobe. PLEURA: No pleural effusion or pneumothorax. HEART AND MEDIASTINUM: Cardiomediastinal silhouette is within normal limits. BONES AND SOFT TISSUES: Mild degenerative changes of the thoracic spine. Partially visualized left shoulder prosthesis. Soft tissues are unremarkable. IMPRESSION:1.2 cm nodule projects over the left midlung zone, likely in the left upper lobe. If indicated, chest CT may be obtained for further evaluation. Signed: Jose Salinas Verified Date/Time: 02/13/2020 16:27:36 [id number] 16:24:00 Test Item Value Reference Range Interpretation [...] is 2.5-3.5 for patients wiht mechanical heart valves.CBC W/PLT COUNT & AUTO [id number] 16:10:00 Test Item Value Reference Range Interpretation [...] 0-1 PERCENT (BEAKER) (test code = 2801) [id number] 18:20:00 Test Item Value Reference Range Interpretation Comments PT (test code = PT) 13.5 s 12.0-14.[address] [facility], [id number] 18:20:00 Test Item Value Reference Range Interpretation Comments INR (test code = INR) 1.03 1 0.85-1.[address] [facility], [id number] 18:20:00 Test Item Value Reference Range Interpretation Comments PTT (test code = PTT) 28.0 s 22.9-35.[address] [facility], [id number] 18:20:00Not Detected (01/26/20 1:20 PM) [id number] 18:20:00 Test Item Value Reference Range Interpretation Comments PT (test code = PT) 13.5 s 12.0-14.7 [place] [id number] 18:20:00 Test Item Value Reference Range Interpretation Comments INR (test code = INR) 1.03 1 0.85-1.17 [id number] 18:20:00 Test Item Value Reference Range Interpretation Comments PTT (test code = PTT) 28.0 s 22.9-35.8 [id number] 18:20:00 Test Item Value Reference Range Interpretation Comments Coronavirus (COVID-19) Not Detected JUANA (test code = (01/26/20 1:20 PM) Coronavirus (COVID-19) JUANA) [place] [id number] 18:20:00 Test Item Value Reference Range Interpretation Comments PT (test code = PT) 13.5 s 12.0-14.7 [place] [id number] 18:20:00 Test Item Value Reference Range Interpretation Comments INR (test code = INR) 1.03 1 0.85-1.17 [place] [id number] 18:20:00 Test Item Value Reference Range Interpretation Comments PTT (test code = PTT) 28.0 s 22.9-35.8 [facility] [id number] 18:20:00 Test Item Value Reference Range Interpretation Comments Coronavirus (COVID-19) Not Detected JUANA (test code = (01/26/20 1:20 PM) Coronavirus (COVID-19) JUANA) [facility] Notes Date/Time Note Provider Source 2020-01-28 11:20:00-00:00 PROCEDURE INFORMATION: [facility] Exam: XR Chest, 1 View Exam date and time: 01/28/2020 11:24 AM Age: 69 years old Clinical indication: Abnormal findings; Addition al info: /mass, post lung biopsy procedure TECHNIQUE: Imaging protocol: XR of the chest Views: 1 view. COMPARISON: CHEST 1VIEW DX 01/28/2020 9:20 AM FINDINGS: Tubes, catheters and devices: None. Lungs: Recently biopsied nodule within the lingu la is again visualized. Pleural space: No pleural effusion or pneumothor ax. Heart/Mediastinum: The cardiac silhouette is wit hin normal limits. Bones/joints: No acute bony abnormalities. Left shoulder arthroplasty. IMPRESSION: No evidence of pneumothorax, status post CT-guid ed lung biopsy. Vaibhav Kessler MD On 01/28/2020 11:46:33; [id number] 2020-01-28 11:20:00-00:00 PROCEDURE INFORMATION: [facility], [place]xann Exam: XR Chest, 1 View Exam date and time: 01/28/2020 11:24 AM Age: 69 years old Clinical indication: Abnormal findings; Addition al info: /mass, post lung biopsy procedure TECHNIQUE: Imaging protocol: XR of the chest Views: 1 view. COMPARISON: CHEST 1VIEW DX 01/28/2020 9:20 AM FINDINGS: Tubes, catheters and devices: None. Lungs: Recently biopsied nodule within the lingu la is again visualized. Pleural space: No pleural effusion or pneumothor ax. Heart/Mediastinum: The cardiac silhouette is wit hin normal limits. Bones/joints: No acute bony abnormalities. Left shoulder arthroplasty. IMPRESSION: No evidence of pneumothorax, status post CT-guid ed lung biopsy. Vaibhav Kessler MD On 01/28/2020 11:46:33; [id number] 2020-01-28 09:20:00-00:00 PROCEDURE INFORMATION: [facility] Exam: XR Chest, 1 View Exam date and time: 01/28/2020 9:20 AM Age: 69 years old Clinical indication: Abnormal findings; Addition al info: /mass, post lung biopsy procedure TECHNIQUE: Imaging protocol: XR of the chest Views: 1 view. COMPARISON: CT BIOPSY LUNG,CHEST VR 01/28/2020 8:49 AM FINDINGS: Tubes, catheters and devices: None. Lungs: Recently biopsied nodule within the lingu la is again visualized. Hyperinflated lungs. Pleural space: No pleural effusion or pneumothor ax. Heart/Mediastinum: The cardiac silhouette is wit hin normal limits. Bones/joints: No acute bony abnormalities. Left shoulder arthroplasty. IMPRESSION: No evidence of pneumothorax, status post CT-guid ed lung biopsy. Vaibhav Kessler MD On 01/28/2020 11:46:01; [id number] 2020-01-28 09:20:00-00:00 PROCEDURE INFORMATION: [facility] Exam: XR Chest, 1 View Exam date and time: 01/28/2020 9:20 AM Age: 69 years old Clinical indication: Abnormal findings; Addition al info: /mass, post lung biopsy procedure TECHNIQUE: Imaging protocol: XR of the chest Views: 1 view. COMPARISON: CT BIOPSY LUNG,CHEST VR 01/28/2020 8:49 AM FINDINGS: Tubes, catheters and devices: None. Lungs: Recently biopsied nodule within the lingu la is again visualized. Hyperinflated lungs. Pleural space: No pleural effusion or pneumothor ax. Heart/Mediastinum: The cardiac silhouette is wit hin normal limits. Bones/joints: No acute bony abnormalities. Left shoulder arthroplasty. IMPRESSION: No evidence of pneumothorax, status post CT-guid ed lung biopsy. Vaibhav Kessler MD On 01/28/2020 11:46:01; [id number] 2020-01-28 08:30:00-00:00 PROCEDURE INFORMATION: [facility] Exam: IR Percutaneous Needle Lung Biopsy Exam date and time: 01/28/2020 8:49 AM Age: 69 years old Clinical indication: Abnormal findings; Addition al info: Lung mass/left lung mass PROCEDURE: 1. CT-guided on the biopsy of a lingular nodule 2. Moderate Sedation CLINICAL INDICATION: Lingular nodule COMPARISON: CT chest on 12/23/2019 CONSENT: The procedure, risks, benefits, and alt ernatives were discussed with the patient and written informed consent was obt ained. A 'timeout' performed per protocol prior to the procedure. TECHNIQUE: CT imaging performed at this location utilizes r adiation dose optimization techniques which include one or more of the foll owing: Automated exposure control, adjustment of the mA and/or kV accordin g to patient size, use of iterative reconstruction technique. blanker press operator: Dr. Kessler Preoperative diagnosis: Lingular nodule Postoperative diagnosis: same Total radiation dose: 349.7 mGycm Estimated blood loss: Less than 10 cc Moderate sedation: I supervised moderate sedatio n during this procedure. Patient was continuously monitored by a nurse us ing automated blood pressure, electrocardiogram, and pulse oximetry. The moder ate sedation record is permanently stored in the hospital [facility] [employer] system. The personal supervised moderate sedation time was 3 9 minutes. Medications administered: Versed 2 mg IV and Fentanyl 100 mcg IV. The patient was placed in a supine position on t he CT table. Preprocedure CT was used to demarcate the 1.4 cm lingular nodule . The left lateral chest wall of the patient was prepped and draped using ster ile technique. The overlying skin was anesthetized with 1% lidocaine. Using CT guidance, a 17-gauge introducer needle was advanced into the lingular nodule. Subsequently, 4 core biopsies (18-gauge x 2cm) were obtained of this nodule using a coaxial technique. The needles we re removed at the end of the procedure and sterile dressings applied. Postprocedure imaging demonstrated a trace left pneumothorax. The patient was stable throughout the procedure. IMPRESSION: Successful CT-guided lung biopsy of a lingular n odule. Vaibhav Kessler MD On 01/28/2020 11:48:15; [id number] 2020-01-28 08:30:00-00:00 PROCEDURE INFORMATION: [facility] Exam: IR Percutaneous Needle Lung Biopsy Exam date and time: 01/28/2020 8:49 AM Age: 69 years old Clinical indication: Abnormal findings; Addition al info: Lung mass/left lung mass PROCEDURE: 1. CT-guided on the biopsy of a lingular nodule 2. Moderate Sedation CLINICAL INDICATION: Lingular nodule COMPARISON: CT chest on 12/23/2019 CONSENT: The procedure, risks, benefits, and alt ernatives were discussed with the patient and written informed consent was obt ained. A 'timeout' performed per protocol prior to the procedure. TECHNIQUE: CT imaging performed at this location utilizes r adiation dose optimization techniques which include one or more of the foll owing: Automated exposure control, adjustment of the mA and/or kV accordin g to patient size, use of iterative reconstruction technique. blanker press operator: Dr. Kessler Preoperative diagnosis: Lingular nodule Postoperative diagnosis: same Total radiation dose: 349.7 mGycm Estimated blood loss: Less than 10 cc Moderate sedation: I supervised moderate sedatio n during this procedure. Patient was continuously monitored by a nurse us ing automated blood pressure, electrocardiogram, and pulse oximetry. The moder ate sedation record is permanently stored in the hospital [employer] system. The personal supervised moderate sedation time was 3 9 minutes. Medications administered: Versed 2 mg IV and Fentanyl 100 mcg IV. The patient was placed in a supine position on t he CT table. Preprocedure CT was used to demarcate the 1.4 cm lingular nodule . The left lateral chest wall of the patient was prepped and draped using ster ile technique. The overlying skin was anesthetized with 1% lidocaine. Using CT guidance, a 17-gauge introducer needle was advanced into the lingular nodule. Subsequently, 4 core biopsies (18-gauge x 2cm) were obtained of this nodule using a coaxial technique. The needles we re removed at the end of the procedure and sterile dressings applied. Postprocedure imaging demonstrated a trace left pneumothorax. The patient was stable throughout the procedure.
--- NOTE | 2022-11-28 13:40 | RAD REPORT ---
EXAM DESCRIPTION: CT - CTHCSPWOC - 11/28/2022 1:17 pm CLINICAL HISTORY: Trauma, head and neck injury. Trauma;Syncope COMPARISON: Head C Spine Mpr Wo Con dated 11/12/2016 TECHNIQUE: Axial 5 mm thick images of the head were obtained. Axial 2 mm thick images of the cervical spine were obtained with sagittal and coronal reconstruction images generated and reviewed. All CT scans are performed using dose optimization technique as appropriate and may include automated exposure control or mA/KV adjustment according to patient size. FINDINGS: CT HEAD WITHOUT CONTRAST: No acute hemorrhage, hydrocephalus or extra-axial collection is identified.No areas of brain edema or midline shift. The paranasal sinuses and mastoids are clear.The calvarium is intact. CT CERVICAL SPINE WITHOUT CONTRAST: No fracture or subluxation.Moderate cervical degenerative spondylosis.No prevertebral soft tissues sw elling is identified. IMPRESSION: No acute intracranial or cervical spine findings.
--- NOTE | 2022-11-28 13:54 | RAD REPORT ---
EXAM DESCRIPTION: RAD - Chest Single View - 11/28/2022 1:37 pm CLINICAL HISTORY: syncope Chest pain. COMPARISON: Chest Single View dated 12/27/2021; Chest Single View dated 12/27/2021; Chest Single View dated 11/02/2020; Chest Pa And Lat (2 Views) dated 06/04/2019 FINDINGS: Portable technique limits examination quality. The lungs are emphysematous. Chronic left pleural thickening with left mid lung scarring. The heart i s moderately enlarged. No displaced fractures. IMPRESSION: COPD.
[2022-11-28 14:02] LABS: Protime INR 1.05
[2022-11-28 14:49] LABS: Absolute Lymphocytes (CBC) 0.5 K/uL (0.7-4.9); Hematocrit 37.9 % (36.0-45.0); Lymphocytes % 10.4 % (15.3-44.8); MCV 89.5 fL (80-100); MPV 7.7 fL (7.6-11.3); Platelets 116 thou/uL (152-406); RBC Red Blood Cell Count 4.24 M/uL (3.86-4.86)
[2022-11-28 15:18] LABS: ALT/SGPT 20 U/L (13-56); AST/SGOT 25 U/L (15-37); Albumin 3.7 g/dL (3.4-5.0); Alkaline Phosphatase 48 U/L (45-117); BUN Blood Urea Nitrogen 14 mg/dL (7-18); Bicarbonate 28 mEq/L (21-32); Bilirubin Direct < 0.1 mg/dL (0-0.2); Bilirubin Indirect, Calculated ND mg/dL (0.2-0.8); Bilirubin Total 0.3 mg/dL (0.2-1.0); Glomerular Filtration Rate 43 ml/min (=/>90); Glucose Level 130 mg/dL (74-106); Magnesium 2.1 mg/dL (1.6-2.4); Potassium 3.9 mEq/L (3.5-5.1); Protein, Total 6.7 g/dL (6.4-8.2); Sodium Level 133 mEq/L (136-145); Troponin High Sensitivity 5.1 pg/mL (<58.9)
--- NOTE | 2022-11-28 15:26 | ER ---
Nurse's Notes [facility] Name: Shree Rothman Age: 72 yrs Sex: Female : 1950 Arrival Date: 11/28/2022 Time: 12:59 Bed 8 Private MD: Diagnosis: COVID-19, syncope Presentation: 11/28 13:08 Chief complaint: Patient states: she was taking a hot bath when she fell forward, ap3 hitting her head. +LOC. Coronavirus screen: Client presents with at least one sign or symptom that may indicate coronavirus-19. Ebola Screen: No symptoms or risks identified at this time. Initial Sepsis Screen: Does the patient meet any 2 criteria? No. Patient's initial sepsis screen is negative. Does the patient have a suspected source of infection? No. Patient's initial sepsis screen is negative. Risk Assessment: Do you want to hurt yourself or someone else? Patient reports no desire to harm self or others. Onset of symptoms was November 28, 2022. Care prior to arrival: Cervical collar in place. Medication(s) given: Normal saline infusion, IV initiated. 20 GA, in the left antecubital area. 13:08 Method Of Arrival: EMS: [facility] ap3 13:08 Acuity: DANYEL 2 ap3 Triage Assessment: 13:10 General: Appears in no apparent distress. Behavior is calm, cooperative. Pain: ap3 Complains of pain in forehead. Neuro: Level of Consciousness is awake, alert, obeys commands, Oriented to person, place, time, situation, Appropriate for age Speech is normal. Cardiovascular: Patient's skin is warm and dry. Respiratory: Airway is patent Respiratory effort is even, unlabored, Respiratory pattern is regular, symmetrical. Historical: - Allergies: 13:10 B-12; ap3 13:10 CT contrast; ap3 - PMHx: 13:10 CHRONS; Lung Cancer; ap3 - Immunization history:: Client reports receiving the 2nd dose of the Covid vaccine. - Social history:: Smoking status: Patient denies any tobacco usage or history of. Screenin:10 Abuse screen: Denies threats or abuse. Nutritional screening: No deficits noted. ap3 Tuberculosis screening: No symptoms or risk factors identified. 13:11 [facility] ED Fall Risk Assessment (Adult) History of falling in the last 3 months, ap3 including since admission Yes- fall prone (multiple falls) (3 pts) Confusion or Disorientation No (0 pts) Intoxicated or Sedated No (0 pts). Assessment: 16:02 General: Appears in no apparent distress. comfortable, Behavior is calm, cooperative, ld1 appropriate for age. Neuro: Level of Consciousness is awake, alert, obeys commands, Oriented to person, place, time, situation. Cardiovascular: Capillary refill < 3 seconds Patient's skin is warm and dry. Rhythm is sinus rhythm. Respiratory: Airway is patent Respiratory effort is even, unlabored. GI: Abdomen is flat, non-distended. Vital Signs: 13:08 BP 93 / 66; Pulse 66; Resp 18; Pulse Ox 96% on R/A; ap3 13:51 BP 100 / 51; Pulse 68; Pulse Ox 100% on R/A; ap3 14:38 BP 132 / 70; Pulse 68; Pulse Ox 100% on R/A; ap3 16:02 BP 126 / 75; Pulse 71; Resp 18; Pulse Ox 99% on R/A; ld1 ED Course: 13:08 Patient arrived in ED. ap3 13:08 Esha Wolf MD is Attending Physician. sp3 13:09 Triage completed. ap3 13:11 Gretchen Oliver, RN is Primary Nurse. ap3 13:11 Arm band placed on right wrist. ap3 13:11 Patient has correct armband on for positive identification. Placed in gown. Bed in low ap3 position. Call light in reach. Side rails up X2. Adult w/ patient. lunchroom monitor on. Pulse ox on. NIBP on. 13:18 CT Head C Spine In Process Unspecified. EDMS 13:38 Chest Single View XRAY In Process Unspecified. EDMS 13:50 SARS-COV-2 RT PCR Sent. ap3 13:50 Initial lab(s) drawn, by me, sent to lab. COVID swab sent to lab. Maintain EMS IV. ap3 Dressing intact. Good blood return noted. Site clean \T\ dry. Gauge \T\ site: 20g left AC. 16:02 No provider procedures requiring assistance completed. IV discontinued, intact, ld1 bleeding controlled, No redness/swelling at site. Administered Medications: No medications were administered Medication: 13:51 VIS not applicable for this client. ap3 Outcome: 15:26 Discharge ordered by . sp3 16:02 Discharged to home ld1 16:02 Discharged to home ambulatory, with family. 16:02 Condition: stable 16:02 Discharge instructions given to patient, Instructed on discharge instructions, follow up and referral plans. Demonstrated understanding of instructions, follow-up care. 16:31 Patient left the ED. ld1 Signatures: Dispatcher [employer] EDMS Gretchen Oliver RN RN ap3 Oanh Lemus RN RN ld1 Esha Wolf MD MD sp3 Corrections: (The following items were deleted from the chart) 13:11 13:10 [facility] ED Fall Risk Assessment (Adult) History of falling in the last 3 months, ap3 including since admission No falls in past 3 months (0 pts) ap3
--- NOTE | 2022-11-28 15:27 | EDPHYS ---
Physician Documentation [facility] Name: Shree Rothman Age: 72 yrs Sex: Female : 1950 Arrival Date: 11/28/2022 Time: 12:59 Bed 8 Private MD: ED Physician Esha Wolf HPI: 11/28 13:11 This 72 yrs old Female presents to ER via EMS with complaints of Syncope and head sp3 injury. 13:11 72-year-old female with history of Crohn's disease, lung cancer free since 2020 now sp3 presents to the ED with chief complaint syncope with associated head injury. Patient states that she has been around family who has had COVID and she has not "been feeling well" since then and today while standing she had a syncopal episode heard by family after she fell and hit her head. She denied any prodrome including chest pain, headache, shortness of breath, abdominal pain, nausea, vomiting, or any other related symptoms. ROS is negative for any other symptoms as well. Family states that she is had syncope in the past which occurs approximately once a year or once every other year. No known etiology has been found for the those prior episodes. She is currently in no acute distress resting comfortably in a c-collar with a contusion on her forehead.. Historical: - Allergies: 13:10 B-12; ap3 13:10 CT contrast; ap3 - PMHx: 13:10 CHRONS; Lung Cancer; ap3 - Immunization history:: Client reports receiving the 2nd dose of the Covid vaccine. - Social history:: Smoking status: Patient denies any tobacco usage or history of. ROS: 13:13 Constitutional: Negative for fever, chills, and weight loss, Eyes: Negative for injury, sp3 pain, redness, and discharge, ENT: Negative for injury, pain, and discharge, Neck: Negative for injury, pain, and swelling, Cardiovascular: Negative for chest pain, palpitations, and edema, Respiratory: Negative for shortness of breath, cough, wheezing, and pleuritic chest pain, Abdomen/GI: Negative for abdominal pain, nausea, vomiting, diarrhea, and constipation, Back: Negative for injury and pain, MS/Extremity: Negative for injury and deformity, Skin: Negative for injury, rash, and discoloration, Allergy/Immunology: Negative for hives, rash, and allergies, Endocrine: Negative for neck swelling, polydipsia, polyuria, polyphagia, and marked weight changes, Hematologic/Lymphatic: Negative for swollen nodes, abnormal bleeding, and unusual bruising. 13:13 All other systems are negative. Exam: 13:13 Constitutional: This is a well developed, well nourished patient who is awake, alert, sp3 and in no acute distress. Eyes: Pupils equal round and reactive to light, extra-ocular motions intact. Lids and lashes normal. Conjunctiva and sclera are non-icteric and not injected. Cornea within normal limits. Periorbital areas with no swelling, redness, or edema. ENT: Nares patent. No nasal discharge, no septal abnormalities noted. External auditory canals are clear. Oropharynx with no redness, swelling, or masses, exudates, or evidence of obstruction, uvula midline. Mucous membranes moist. Neck: Trachea midline, no thyromegaly or masses palpated, and no cervical lymphadenopathy. Supple, full range of motion without nuchal rigidity, or vertebral point tenderness. No Meningismus. Chest/axilla: Normal chest wall appearance and motion. Nontender with no deformity. No lesions are appreciated. Cardiovascular: Regular rate and rhythm with a normal S1 and S2. No gallops, murmurs, or rubs. Normal PMI, no JVD. No pulse deficits. Respiratory: Lungs have equal breath sounds bilaterally, clear to auscultation and percussion. No rales, rhonchi or wheezes noted. No increased work of breathing, no retractions or nasal flaring. Abdomen/GI: Soft, non-tender, with normal bowel sounds. No distension or tympany. No guarding or rebound. No evidence of tenderness throughout. Back: No spinal tenderness. No costovertebral tenderness. Full range of motion. Skin: Warm, dry with normal turgor. Normal color with no rashes, no lesions, and no evidence of cellulitis. MS/ Extremity: Pulses equal, no cyanosis. Neurovascular intact. Full, normal range of motion. Neuro: Awake and alert, GCS 15, oriented to person, place, time, and situation. Cranial nerves II-XII grossly intact. Motor strength 5/5 in all extremities. Sensory grossly intact. Cerebellar exam normal. Normal gait. Psych: Awake, alert, with orientation to person, place and time. Behavior, mood, and affect are within normal limits. 13:13 Head/face: Patient has 2 cm x 2 cm contusion and abrasion just left of center forehead. No laceration is noted. There is no cervical tenderness. Remainder of secondary exam is negative for traumatic injury. Neurological exam is normal and she has no deficits.. 13:41 ECG was reviewed by the Attending Physician. EKG demonstrates normal sinus rhythm at 63 sp3 bpm with normal intervals, normal QRS, normal axis, nonspecific diffuse ST/changes without evidence of acute ischemia. Vital Signs: 13:08 BP 93 / 66; Pulse 66; Resp 18; Pulse Ox 96% on R/A; ap3 13:51 BP 100 / 51; Pulse 68; Pulse Ox 100% on R/A; ap3 14:38 BP 132 / 70; Pulse 68; Pulse Ox 100% on R/A; ap3 16:02 BP 126 / 75; Pulse 71; Resp 18; Pulse Ox 99% on R/A; ld1 MDM: 13:09 Patient medically screened. sp3 13:14 Data reviewed: vital signs, nurses notes, lab test result(s), EKG, radiologic studies. sp3 ED course: 72-year-old female with syncopal episode with head injury. Do not believe patient has had any significant cardiac prodrome including CVA/TIA spectrum, acute coronary syndrome, or pulmonary embolism. She may have had a COVID exposure which we will assess for. She has also had syncope in the past which this may just be a recurrent episode. She is currently with normal vital signs in no acute distress with a normal cardiac rhythm. Work-up will include EKG, CT scan of the head and C-spine from a traumatic standpoint as well as from a syncope standpoint, laboratory values and general observation. If work-up is negative we will reassess and discuss with family optimal treatment plan including possible outpatient follow-up with PCP and/or neurology.. 15:25 ED course: Patient's work-up is negative other than her COVID-[address] sp3 scan of the head and C-spine are negative. Troponin is also negative. CBC is normal. Baseline CKD is evident. Creatinine elevation is present. At this time we will safely discharge patient home to PCP follow-up as this is her request as well.. 11/28 13:09 Order name: Basic Metabolic Panel; Complete Time: 15:25 3 11/28 13:09 Order name: CBC with Diff; Complete Time: 15:25 3 11/28 13:09 Order name: Hepatic Function; Complete Time: 15:25 3 11/28 13:09 Order name: Magnesium; Complete Time: 15:25 3 11/28 13:09 Order name: Protime (+inr); Complete Time: 14:08 3 11/28 13:09 Order name: Troponin High Sensitivity; Complete Time: 15:25 3 11/28 13:10 Order name: SARS-COV-2 RT PCR; Complete Time: 14:42 3 11/28 13:08 Order name: CT Head C Spine; Complete Time: 13:40 3 11/28 13:09 Order name: Chest Single View XRAY; Complete Time: 14:08 3 11/28 13:09 Order name: EKG; Complete Time: 13:10 [facility] 11/28 13:09 Order name: Cardiac monitoring; Complete Time: 13:11 [facility] 11/28 13:09 Order name: EKG - Nurse/Tech; Complete Time: 13:40 3 11/28 13:09 Order name: IV Saline Lock; Complete Time: 13:11 [facility] 11/28 13:09 Order name: Labs collected and sent; Complete Time: 13:50 [facility] 11/28 13:09 Order name: NPO; Complete Time: 13:11 3 11/28 13:09 Order name: O2 Sat Monitoring; Complete Time: 13:11 [facility] 11/28 13:09 Order name: Orthostatics [facility] 11/28 14:02 Order name: Labs - recollect needed: recollect light green and lavender top; Complete bd Time: 14:39 Administered Medications: No medications were administered Disposition Summary: 11/28/22 15:26 Discharge Ordered Location: Home sp3 Condition: Stable sp3 Diagnosis - COVID-19, syncope sp3 Followup: sp3 - With: Private Physician - When: Upon discharge from the Emergency Department - Reason: Continuance of care Discharge Instructions: - Discharge Summary Sheet sp3 - Syncope sp3 - COVID-19 sp3 Forms: - Medication Reconciliation Form sp3 - Thank You Letter sp3 - Antibiotic Education sp3 - Prescription Opioid Use sp3 - Patient Portal Instructions sp3 - Leadership Thank You Letter sp3 Signatures: DispAlona Laura Amanda, RN RN ap3 Esha Wolf MD MD sp3
[2022-11-28 17:25] VITALS: BP 126/75; O2SAT 99
--- NOTE | 2022-11-29 13:06 | EKG ---
Test Date: 2022-11-28 Test Time: 13:38:08 Can Solderer: Brendan INGRAM MEASUREMENT RESULTS: Intervals: Rate: 63 RI: 190 QRSD: 78 QT: 416 QTc: 425 [place]: P: 72 RI: 190 QRS: 59 T: 42 INTERPRETIVE STATEMENTS: Normal sinus rhythm Nonspecific T wave abnormality Abnormal ECG Compared to ECG 11/02/2020 21:46:18 T-wave abnormality now present Sinus bradycardia no longer present First degree AV block no longer present ST (T wave) deviation no longer present Electronically Signed On 11-29-22 13:04:08 CDT by Landon Silveira
== END 2022-11-28 16:31 | disposition home or self-care (01) ==
LOC: ER 12:59
DX: U07.1 COVID-19 (principal); S00.83XA Contusion of other part of head, initial encounter; Z85.118 Personal history of other malignant neoplasm of bronchus and lung; Z91.041 Radiographic dye allergy status; Z91.048 Other nonmedicinal substance allergy status
CPT/HCPCS: 36415; 70450; 71045; 72125; 80048; 80076; 83735; 84484; 85025; 85610; 87635; 93005; 99284

== ENCOUNTER 2023-05-08 10:15 | Inpatient (IN) | payer OTHER ==
[2023-05-08 12:09] LABS: Hematocrit 40.8 % (36.0-45.0); Lymphocytes % 14.7 % (15.3-44.8); MCV 88.8 fL (80-100); MPV 6.7 fL (7.6-11.3); Platelets 278 thou/uL (152-406); RBC Red Blood Cell Count 4.59 M/uL (3.86-4.86)
[2023-05-08 12:29] LABS: Albumin 3.2 g/dL (3.4-5.0); Bilirubin Direct 0.1 mg/dL (0-0.2); Bilirubin Indirect, Calculated 0.3 mg/dL (0.2-0.8); Bilirubin Total 0.4 mg/dL (0.2-1.0); Magnesium 2.1 mg/dL (1.6-2.4); Protein, Total 6.4 g/dL (6.4-8.2); Troponin High Sensitivity 8.1 pg/mL (<58.9)
--- NOTE | 2023-05-08 12:45 | RAD REPORT ---
EXAM DESCRIPTION: CT - Thorax Wo Con - 05/08/2023 12:26 pm CLINICAL HISTORY: Chest pain;Dyspnea COMPARISON: Thorax Wo Con dated 01/30/2023; Thorax Wo Con dated 09/21/2022; Thorax Wo Con dated 023; Thorax Wo Con dated 12/13/2021; Chest Single View dated 05/08/2023 TECHNIQUE: Axial thin cut images of the chest were obtained without IV contrast. Multiplanar reforma ts were generated and reviewed. All CT scans are performed using dose optimization technique as appropriate and may include automated exposure control or mA/KV adjustment according to patient size. FINDINGS: Large layering left pleural effusion. Segmental left upper lobe and complete left lower lo be atelectasis. No pleural thickening or right pleural effusion. No right sided airspace opacities. N o pneumothorax. No abnormal mediastinal or hilar masses or lymphadenopathy seen. No significant aortic or pulmonary a rtery findings. Assessment is limited in the absence of IV contrast. No chest wall mass or abnormal axillary lymphadenopathy. Evaluation of the solid abdominal structures reveals stable small hypoattenuating, likely cystic lesi ons in the liver largest measuring 1.7 cm near the hilum, and a partially visualized right renal supe rior pole cyst IMPRESSION: New large layering left-sided pleural effusion with segmental left upper lobe and comple te left lower lobe opacification, favoring atelectasis, although possibility of a superimposed infect ion or other parenchymal abnormality cannot be entirely excluded given the airspace opacification and absence of IV contrast. Stable incidental upper abdominal findings as above.
[2023-05-08] MEDS ORDERED: KETOROLAC 30 MG/ML INJ ONE (12:47)
--- NOTE | 2023-05-08 12:47 | RAD REPORT ---
[facility] CLINICAL HISTORY: DYSPNEA COMPARISON: Chest Single View dated 11/28/2022; Chest Single View dated 12/27/2021; Chest Single View dated 12/27/2021; Chest Single View dated 11/02/2020 TECHNIQUE: Portable AP view of the chest. FINDINGS: New large left pleural effusion appears to be layering. Mild rightward deviation of the tr achea. Right lung is clear. No pneumothorax or right-sided effusion. The cardiomediastinal contours a re unremarkable. IMPRESSION: New large left-sided pleural effusion with some mass effect.
--- NOTE | 2023-05-08 12:52 | EKG ---
Test Date: 2023-05-08 Test Time: 12:06:51 Envelope Machine Adjuster: CARLEY MEASUREMENT RESULTS: Intervals: Rate: 90 FL: 154 QRSD: 68 QT: 356 QTc: 435 [place]: P: 45 FL: 154 QRS: 44 T: 27 INTERPRETIVE STATEMENTS: Normal sinus rhythm Normal ECG Compared to ECG 11/28/2022 13:38:08 T-wave abnormality no longer present Electronically Signed On 05-08-23 12:51:48 YARN WASHER by Landon Silveira
--- NOTE | 2023-05-08 14:01 | ER ---
Nurse's Notes [facility] Name: Shree Rothman Age: 73 yrs Sex: Female : 1950 Arrival Date: 05/08/2023 Time: 10:15 Bed 18 Private MD: Diagnosis: Dyspnea;Pleural effusion, not elsewhere classified Presentation: 05/08 10:22 Chief complaint: EMS states: toned out for worsening of SOB x 4 days. SOB worse with me1 exertion. c/o pain to left side of torso (hx: intercostal neuralgia). Coronavirus screen: Vaccine status: Patient reports receiving the 2nd dose of the covid vaccine. Ebola Screen: No symptoms or risks identified at this time. Initial Sepsis Screen: Does the patient meet any 2 criteria? No. Patient's initial sepsis screen is negative. Does the patient have a suspected source of infection? No. Patient's initial sepsis screen is negative. Risk Assessment: Do you want to hurt yourself or someone else? Patient reports no desire to harm self or others. Onset of symptoms was May 04, 2022. 10:22 Method Of Arrival: EMS ky1 10:22 Acuity: DANYEL 3 me1 Triage Assessment: 10:24 General: Appears uncomfortable, well groomed, well developed, well nourished, Behavior me1 is calm, cooperative, appropriate for age. General: toned out for worsening of SOB x 4 days. SOB worse with exertion. c/o pain to left side of torso (hx: intercostal neuralgia). 98% on room air but feels relief with o2 \T\ 2 lpm via nc. . Pain: Complains of pain in left torso Pain does not radiate. Pain currently is 4 out of 10 on a pain scale. Quality of pain is described as burning, Pain began years ago. Is continuous. Neuro: Level of Consciousness is awake, alert, obeys commands, Oriented to person, place, time, situation, Appropriate for age. Cardiovascular: Capillary refill < 3 seconds Patient's skin is warm and dry. Respiratory: Airway is patent Trachea midline Respiratory effort is even, unlabored, Respiratory pattern is regular, symmetrical. Historical: - Allergies: 10:23 B-12; me1 10:23 CT contrast; me1 - PMHx: 10:23 CHRONS; Lung Cancer; GERD (Lung Cancer); Anxiety; Intercostal neuralgia; me1 - PSHx: 13:12 Left lobectomy; me1 - Immunization history:: Adult Immunizations up to date. - Social history:: Smoking status: Patient/guardian denies using tobacco, but has a distant history of tobacco abuse. Screenin:26 [facility] ED Fall Risk Assessment (Adult) History of falling in the last 3 months, me1 including since admission No falls in past 3 months (0 pts) Confusion or Disorientation No (0 pts) Intoxicated or Sedated No (0 pts) Impaired Gait No (0 pts) Mobility Assist Device Used No (0 pt) Altered Elimination No (0 pt) Score/Fall Risk Level 0 - 2 = Low Risk Maintained a safe environment, Provided non-skid footwear, Hourly rounding (assess needs \T\ fall precautionary measures) done. Abuse screen: Denies threats or abuse. Nutritional screening: No deficits noted. Tuberculosis screening: No symptoms or risk factors identified. Assessment: 10:26 General: See triage assessment. . me1 16:59 General: attempted to call report to ANNI Romero, left message on voicemail. Awaiting [facility] return phone call. . Vital Signs: 10:22 BP 142 / 77; Pulse 83; Resp 18; Temp 98.4(O); Pulse Ox 98% ; Weight 53.52 kg; Height 5 me1 ft. 2 in. ; Pain 4/10; 10:30 BP 139 / 77; Pulse 74; Resp 18; Pulse Ox 100% on R/A; me1 11:30 BP 157 / 79; Pulse 75; Resp 16; Pulse Ox 100% on 2 lpm NC; me1 12:30 BP 165 / 88; Pulse 92; Resp 16; Pulse Ox 100% on 2 lpm NC; me1 13:30 BP 176 / 90; Pulse 86; Resp 16; Pulse Ox 100% on 2 lpm NC; me1 14:30 BP 178 / 87; Pulse 85; Resp 18; Pulse Ox 100% on 2 lpm NC; me1 15:30 BP 174 / 99; Pulse 83; Resp 18; Pulse Ox 91% on R/A; me1 16:30 BP 168 / 90; Pulse 90; Resp 18; Pulse Ox 100% on 2 lpm NC; me1 10:22 Body Mass Index 21.58 (53.52 kg, 157.48 cm) me1 10:22 Pain Scale: Adult me1 ED Course: 10:22 Patient arrived in ED. bd 10:22 Fatmata Ma, RN is Primary Nurse. me1 10:23 Cali Nieto MD is Attending Physician. kdr 10:23 Triage completed. me1 10:24 Arm band placed on Patient placed in an exam room. me1 10:26 Patient has correct armband on for positive identification. Bed in low position. Call me1 light in reach. Side rails up X2. Provided Education on: POC. Verbalized understanding. . 10:26 No provider procedures requiring assistance completed. me1 11:54 Inserted saline lock: 22 gauge in left antecubital area, using aseptic technique. me1 11:55 Basic Metabolic Panel Sent. me1 11:55 CBC with Diff Sent. me1 11:55 LFT's Sent. me1 11:55 Magnesium Sent. me1 11:55 NT PRO-BNP Sent. me1 11:55 Troponin HS Sent. me1 11:59 XRAY Chest (1 view) In Process Unspecified. EDMS 12:27 Thorax Wo Con In Process Unspecified. EDMS 13:59 Jennifer Dixon MD is Hospitalizing Provider. kdr 14:04 Garrett Becerra is Hospitalizing Provider. kdr 15:56 Chest In Process Unspecified. EDMS 17:38 Patient admitted, IV remains in place. me1 Administered Medications: 12:49 Drug: Ketorolac IVP 15 mg IVP once Route: IVP; Site: left antecubital; me1 15:03 Follow up: Response: No adverse reaction; Pain is decreased me1 Medication: 10:26 VIS not applicable for this client. me1 Outcome: 14:01 Decision to Hospitalize by Provider. kdr 17:37 Admitted to Med/surg accompanied by tech, via wheelchair, room 211, with chart, Report me1 called to ANNI Romero 17:37 Condition: stable 17:37 Instructed on the need for admit, 17:39 Patient left the ED. me1 Signatures: Dispatcher [employer] EDMS Alona Alcaraz Cali Nieto MD MD kdr Fatmata Ma, ANNI RN me1
--- NOTE | 2023-05-08 14:01 | EDPHYS ---
Physician Documentation [facility] Name: Shree Rothman Age: 73 yrs Sex: Female : 1950 Arrival Date: 05/08/2023 Time: 10:15 Bed 18 Private MD: ED Physician Cali Nieto HPI: 05/08 18:53 This 73 yrs old Female presents to ER via EMS with complaints of Shortness Of Breath. kdr 18:53 The patient has shortness of breath at rest, with light activity, during heavy kdr activity. Onset: The symptoms/episode began/occurred gradually, 2 week(s) ago. Duration: The symptoms are continuous, and are steadily getting worse. The patient's shortness of breath is aggravated by exertion, light activity, talking. Associated signs and symptoms: Pertinent positives: chest pain. Severity of symptoms: At their worst the symptoms were mild in the emergency department the symptoms are unchanged. The patient has not experienced similar symptoms in the past. The patient has not recently seen a physician. Patient presents to the ED complaining of shortness of breath. She also complains of thoracic pain. Patient has a history of lung cancer with a lobectomy in approximately 2020. Patient had a CAT scan at the end of December and 2022. There were no significant new findings there. 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 Today the patient presents with several weeks of worsening shortness of breath and chest wall pain. She denies fever or any other respiratory symptoms. Patient is nontoxic-appearing. Historical: - Allergies: 10:23 B-12; me1 10:23 CT contrast; me1 - PMHx: 10:23 CHRONS; Lung Cancer; GERD (Lung Cancer); Anxiety; Intercostal neuralgia; me1 - PSHx: 13:12 Left lobectomy; me1 - Immunization history:: Adult Immunizations up to date. - Social history:: Smoking status: Patient/guardian denies using tobacco, but has a distant history of tobacco abuse. ROS: 18:53 Constitutional: Negative for fever, chills, and weight loss, Eyes: Negative for injury, kdr pain, redness, and discharge, Neck: Negative for injury, pain, and swelling, Cardiovascular: Negative for chest pain, palpitations, and edema, Abdomen/GI: Negative for abdominal pain, nausea, vomiting, diarrhea, and constipation, Back: Negative for injury and pain, : Negative for injury, bleeding, discharge, and swelling, MS/Extremity: Negative for injury and deformity, Skin: Negative for injury, rash, and discoloration, Neuro: Negative for headache, weakness, numbness, tingling, and seizure activity. Psych: Negative for depression, anxiety, suicide ideation, homicidal ideation, and hallucinations, Allergy/Immunology: Negative for hives, rash, and allergies, Endocrine: Negative for neck swelling, polydipsia, polyuria, polyphagia, and marked weight changes, Hematologic/Lymphatic: Negative for swollen nodes, abnormal bleeding, and unusual bruising, 18:53 Respiratory: Positive for dyspnea on exertion, shortness of breath, on exertion. Negative for hemoptysis, orthopnea, pleurisy, wheezing, Exam: 18:53 Constitutional: This is a well developed, well nourished patient who is awake, alert, kdr and in no acute distress. Head/Face: Normocephalic, atraumatic. Eyes: Pupils equal round and reactive to light, extra-ocular motions intact. Lids and lashes normal. Conjunctiva and sclera are non-icteric and not injected. Cornea within normal limits. Periorbital areas with no swelling, redness, or edema. Neck: Trachea midline, no thyromegaly or masses palpated, and no cervical lymphadenopathy. Supple, full range of motion without nuchal rigidity, or vertebral point tenderness. No Meningismus. Chest/axilla: Normal chest wall appearance and motion. Nontender with no deformity. No lesions are appreciated. Cardiovascular: Regular rate and rhythm with a normal S1 and S2. No gallops, murmurs, or rubs. Normal PMI, no JVD. No pulse deficits. Abdomen/GI: Soft, non-tender, with normal bowel sounds. No distension or tympany. No guarding or rebound. No evidence of tenderness throughout. Back: No spinal tenderness. No costovertebral tenderness. Full range of motion. Skin: Warm, dry with normal turgor. Normal color with no rashes, no lesions, and no evidence of cellulitis. MS/ Extremity: Pulses equal, no cyanosis. Neurovascular intact. Full, normal range of motion. Neuro: Awake and alert, GCS 15, oriented to person, place, time, and situation. Cranial nerves II-XII grossly intact. Motor strength 5/5 in all extremities. Sensory grossly intact. Cerebellar exam normal. Normal gait. Psych: Awake, alert, with orientation to person, place and time. Behavior, mood, and affect are within normal limits. 18:53 Respiratory: the patient does not display signs of respiratory distress, Respirations: labored breathing, that is mild, With exertion, Breath sounds: Diminished breath sounds on left side, Vital Signs: 10:22 BP 142 / 77; Pulse 83; Resp 18; Temp 98.4(O); Pulse Ox 98% ; Weight 53.52 kg; Height 5 me1 ft. 2 in. ; Pain 4/10; 10:30 BP 139 / 77; Pulse 74; Resp 18; Pulse Ox 100% on R/A; me1 11:30 BP 157 / 79; Pulse 75; Resp 16; Pulse Ox 100% on 2 lpm NC; me1 12:30 BP 165 / 88; Pulse 92; Resp 16; Pulse Ox 100% on 2 lpm NC; nd1 13:30 BP 176 / 90; Pulse 86; Resp 16; Pulse Ox 100% on 2 lpm NC; me1 14:30 BP 178 / 87; Pulse 85; Resp 18; Pulse Ox 100% on 2 lpm NC; me1 15:30 BP 174 / 99; Pulse 83; Resp 18; Pulse Ox 91% on R/A; me1 16:30 BP 168 / 90; Pulse 90; Resp 18; Pulse Ox 100% on 2 lpm NC; me1 10:22 Body Mass Index 21.58 (53.52 kg, 157.48 cm) [facility] 10:22 Pain Scale: Adult nd1 MDM: 14:01 Patient medically screened. kdr 18:53 Data reviewed: vital signs, lab test result(s), radiologic studies. kdr 05/08 11:17 Order name: Basic Metabolic Panel; Complete Time: 13:17 kdr 05/08 11:17 Order name: CBC with Diff; Complete Time: 13:17 kdr 05/08 11:17 Order name: LFT's; Complete Time: 13:17 kdr 05/08 11:17 Order name: Magnesium; Complete Time: 13:17 kdr 05/08 11:17 Order name: NT PRO-BNP; Complete Time: 13:17 kdr 05/08 11:17 Order name: Troponin HS; Complete Time: 13:17 kdr 05/08 16:29 Order name: Basic Metabolic Panel EDMS 05/08 16:29 Order name: Basic Metabolic Panel EDMS 05/08 16:29 Order name: CBC with Automated Diff EDMS 05/08 16:29 Order name: CBC with Automated Diff EDMS 05/08 16:29 Order name: Magnesium EDMS 05/08 16:29 Order name: Magnesium EDMS 05/08 16:29 Order name: Phosphorus EDMS 05/08 16:29 Order name: Phosphorus EDMS 05/08 16:29 Order name: Protime (+INR) EDMS 05/08 16:29 Order name: Protime (+INR) EDMS 05/08 11:17 Order name: XRAY Chest (1 view); Complete Time: 13:17 kdr 05/08 12:09 Order name: Thorax Wo Con; Complete Time: 13:17 EDMS 05/08 15:34 Order name: Chest EDMS 05/08 11:17 Order name: EKG; Complete Time: 11:17 kdr 05/08 16:24 Order name: CONS Physician Consult EDMS 05/08 11:17 Order name: Cardiac monitoring; Complete Time: 13:16 kdr 05/08 11:17 Order name: EKG - Nurse/Tech; Complete Time: 13:16 kdr 05/08 11:17 Order name: IV Saline Lock; Complete Time: 11:54 kdr 05/08 11:17 Order name: Labs collected and sent; Complete Time: 11:54 kdr 05/08 11:17 Order name: O2 Per Protocol; Complete Time: 11:55 kdr 05/08 11:17 Order name: O2 Sat Monitoring; Complete Time: 11:55 kdr Administered Medications: 12:49 Drug: Ketorolac IVP 15 mg IVP once Route: IVP; Site: left antecubital; me1 15:03 Follow up: Response: No adverse reaction; Pain is decreased me1 Disposition Summary: 05/08/23 14:01 Hospitalization Ordered Notes: Hospitalization Status: Inpatient Admission kdr Location: Telemetry/MedSurg (Inpatient) kdr Condition: Fair kdr Problem: new kdr Symptoms: have improved kdr Bed/Room Type: Standard kdr Provider: Garrett Becerra(05/08/23 14:04) kdr Room Assignment: [facility](05/08/23 16:39) as6 Diagnosis - Dyspnea kdr - Pleural effusion, not elsewhere classified kdr Forms: - Medication Reconciliation Form kdr - SBAR form kdr - Leadership Thank You Letter kdr Signatures: Dispatcher [employer] EDMS Cali Nieto MD MD kdr Case Flynn, RN RN as6 Fatmata Ma, ANNI RN me1 Corrections: (The following items were deleted from the chart) 12:09 11:17 Thorax W/ Con+CT.RAD.BRZ ordered. EDOH EDMS 14:04 14:01 Jennifer Dixon kdr kdr 16:39 14:01 kdr as6
--- NOTE | 2023-05-08 16:15 | RAD REPORT ---
EXAM DESCRIPTION: US - Chest - 05/08/2023 3:55 pm CLINICAL HISTORY: Large left pleural effusion and atelectasis COMPARISON: <Comparisons> FINDINGS: There is a large left pleural effusion present. Distinct septa are not seen. Atelectatic l doris is seen as well.
[2023-05-08] MEDS ORDERED: ACETAMINOPHEN 325 MG TABLET PO PRN (16:22)
[2023-05-08] MEDS ORDERED: ALBUTEROL 2.5 MG/3 ML NEB SOL NEB PRN (16:22)
--- NOTE | 2023-05-08 16:36 | P.HP ---
Certification for Inpatient Patient admitted to: Inpatient With expected LOS: >2 Midnights Practitioner: I am a practitioner with admitting privileges, knowledge of patient current condition, hospital course, and medical plan of care. Services: Services provided to patient in accordance with Admission requirements found in Title 42 Section 412.3 of the Code of Federal Regulations Patient History Date of Service: 05/08/23 Reason for admission: Shortness of breath History of Present Illness: 73-year-old history of lung cancer status post left lower lobe lobectomy and chemotherapy in 2020, declared disease-free and currently under surveillance presented to the emergency department with a complaint of progressive shortness of breath and left-sided back pain. Patient reported she developed extreme shortness of breath last night and therefore presented to the emergency department today. Checks x-ray done in the emergency department demonstrated large opacification in the left lung, CT chest showed large left pleural effusion and atelectasis, mass or infiltrate not ruled out. Patient has no leukocytosis, no tachycardia and does not meet criteria for sepsis. No docum ented hypoxia. Case discussed with pulmonary Dr. Camargo who recommended chest ultrasound which confirmed large pleural effusion which does not appear to be loculated and atelectasis. Patient is hospitalized for further management. Allergies cyanocobalamin (vitamin B12) Allergy (Verified 12/27/21 08:43) Anaphylaxis Home Medications: Escitalopram [Lexapro] 20 mg PO DAILY 08/04/14 Hydrocodone Bit/Acetaminophen [Hydrocodon-Acetaminophn 10-325] 1 each PO TIDP PRN 08/04/14 Tizanidine [Zanaflex*] 4 mg PO BID 08/04/14 Esomeprazole Mag Trihydrate [Nexium] 40 mg PO DAILY 01/03/18 Trazodone HCl 50 mg PO BEDTIME 06/04/19 Gabapentin [Neurontin] 300 mg PO TID 06/11/19 - Past Medical/Surgical History Diabetic: No -: crohns -: osteoarthritis left shoulder -: GERD -: History of lung cancer -: left thumb 2017 -: left wrist fx 2002 -: left hip 1996 -: bilateral bunioectomy -: melody neuopathy -: hysterectomy 1992 -: bladder lift 1992 -: Left shoulder surgery, left lung lobectomy - Family History Father -: Heart disease Notes: sister-cancer. mother heart prob Mother -: Heart disease - Social History Alcohol use: No CD- Drugs: Yes Caffeine use: Yes Review of Systems Other: Patient denied any fever. She endorsed left-sided chest pain and back pain. She denied any wheezing. She denied any abdominal pain or nausea vomiting or diarrhea. Except as documented, all other systems reviewed and negative. Physical Examination - Physical Exam General: Alert, Oriented x3, Mild distress (Due to shortness of breath) HEENT: Atraumatic, PERRLA, Mucous membr. moist/pink, Sclerae nonicteric Neck: Supple, JVD not distended Respiratory: Diminished (Left lung, no crackles.) Cardiovascular: No edema, Regular rate/rhythm, Normal S1 S2 Capillary refill: <2 Seconds Gastrointestinal: Normal bowel sounds, Soft and benign, Non-distended, No tenderness Musculoskeletal: No swelling, No tenderness Integumentary: No rashes, No erythema, No cyanosis Neurological: Normal speech, Normal strength at 5/5 x4 extr, Cranial nerves 3-12 intact Lymphatics: No axilla or inguinal lymphadenopathy - Studies Laboratory Data (last 24 hrs) 05/08/23 05/08/23 11:53 11:53 WBC 7.00 Hgb 13.9 Hct 40.8 Plt Count 278 Sodium 134 L Potassium 4.0 BUN 13 Creatinine 0.93 Glucose 104 Magnesium 2.1 Total Bilirubin 0.4 AST 7 L ALT 14 Alkaline Phosphatase 69 Assessment and Plan - Problems (Diagnosis) (1) Pleural effusion on left Current Visit: Yes Status: Acute (2) Atelectasis, left Current Visit: Yes Status: Acute (3) History of lung cancer Current Visit: Yes Status: Acute (4) GERD (gastroesophageal reflux disease) Current Visit: Yes Status: Acute (5) Hyponatremia Current Visit: Yes Status: Acute - Plan Large left pleural effusion/history of lung cancer/atelectasis Fluid appear not to be loculated. Patient admitted to the medical floor. Pulmonary Dr. Denise consulted to assist with management. US guided thoracentesis-therapeutic and diagnostic. Infiltrate not ruled out so we will cover empirically with IV Levaquin Bronchodilators as needed Supportive measures with IV morphine as needed for pain and shortness of breath. Resume home dose [place]. Hyponatremia Mild Monitor BMP. GERD Resume home dose PPI. DVT prophylaxis: Heparin SQ CODE STATUS: Full code. - Advance Directives Does patient have a Living Will: No Does patient have a Durable POA for Healthcare: Yes
[2023-05-08] MEDS ORDERED: ONDANSETRON 4 MG/2 ML VIAL ONE (16:49)
[2023-05-08] MEDS: ONDANSETRON 4 MG/2 ML VIAL IV PRN (16:52)
[2023-05-08] MEDS: IPRATROPIUM BROM 0.5MG/2.5ML NEB SCH (18:11)
[2023-05-08] MEDS: Levofloxacin 750mg IV 750 MG/150 ML BAG IV SCH (18:14)
[2023-05-08] MEDS: HEPARIN 5000 UNIT/ML 1 ML VIAL SQ SCH (18:17)
[2023-05-08] MEDS: MORPHINE 2 MG/ML SYR IV PRN (18:22)
[2023-05-08] MEDS: HYDROCODONE/APAP 10/325 TAB PO PRN (20:10)
[2023-05-08] MEDS: GABAPENTIN 300 MG CAP PO SCH (20:10)
[2023-05-08] MEDS: TRAZODONE 50 MG TABLET PO SCH (20:11)
[2023-05-08] MEDS: TRAZODONE 50 MG TABLET PO ONE (21:00)
[2023-05-08] MEDS: INFLUENZA VACCINE (for 6+ mo) 0.5 ML DOSE IMVAC ONE (22:00)
[2023-05-08 23:27] VITALS: BMI 21.4
[2023-05-09] MEDS: TRAZODONE 50 MG TABLET ONE (00:09)
[2023-05-09] MEDS: TRAZODONE 50 MG TABLET PO ONE (00:13)
[2023-05-09] MEDS: PANTOPRAZOLE 40MG TABLET PO SCH (05:45)
[2023-05-09 06:47] LABS: Absolute Lymphocytes (CBC) 1.1 K/uL (0.7-4.9); Hematocrit 41.3 % (36.0-45.0); Lymphocytes % 17.4 % (15.3-44.8); MCV 88.9 fL (80-100); MPV 6.8 fL (7.6-11.3); Platelets 251 thou/uL (152-406); RBC Red Blood Cell Count 4.64 M/uL (3.86-4.86)
[2023-05-09 06:53] LABS: Protime INR 1.23
[2023-05-09 07:02] LABS: Phosphorus 2.9 mg/dL (2.5-4.9); Potassium 3.9 mEq/L (3.5-5.1)
[2023-05-09] MEDS: D5 0.45 NS 1,000 ML IV SCH (10:21)
[2023-05-09] MEDS: MORPHINE 2 MG/ML SYR IV PRN (10:23)
--- NOTE | 2023-05-09 12:14 | P.CNS ---
Date of Consult: 05/09/23 Reason for Consult: Pleural effusion Chief Complaint: Shortness of breath History of Present Illness: Patient is 73 years of age with a history of lung cancer that was resected admitted with shortness of breath for the past 2 weeks has become progressively worse found to have a massive pleural effusion on the left side was treated with chemotherapy eyes any fever or chills no cough or phlegm complaining of some chest pain Allergies cyanocobalamin (vitamin B12) Allergy (Mild, Verified 05/08/23 18:33) Anaphylaxis iv contrast Allergy (Uncoded 05/08/23 18:33) Hives Home Medications: Escitalopram [Lexapro] 20 mg PO DAILY 08/04/14 Hydrocodone Bit/Acetaminophen [Hydrocodon-Acetaminophn 10-325] 1 each PO QID 08/04/14 Tizanidine [Zanaflex*] 4 mg PO TID 08/04/14 Esomeprazole Mag Trihydrate [Nexium] 40 mg PO DAILY 01/03/18 Trazodone HCl 150 mg PO BEDTIME 06/04/19 Gabapentin [Neurontin] 400 mg PO QID 06/11/19 Forteo 1 unit SQ BEDTIME 05/08/23 - Past Medical/Surgical History Diabetic: No -: crohns -: osteoarthritis left shoulder -: GERD -: History of lung cancer -: left thumb 2017 -: left wrist fx 2002 -: left hip 1996 -: bilateral bunioectomy -: melody neuopathy -: hysterectomy 1992 -: bladder lift 1992 -: Left shoulder surgery, left lung lobectomy - Family History Father Medical History: Heart disease Notes: sister-cancer. mother heart prob Mother Medical History: Heart disease - Social History Smoking Status: Unknown if ever smoked Alcohol use: No CD- Drugs: Yes Caffeine use: Yes Place of Residence: Home Review of Systems 10-point ROS is otherwise unremarkable General: Weakness Respiratory: Shortness of Breath Physical Examination Temp Pulse Resp BP Pulse Ox 97.9 F 88 16 177/81 H 95 05/09/23 04:00 05/09/23 04:00 05/09/23 06:45 05/09/23 04:00 05/09/23 06:45 General: Alert, Oriented x3, Mild distress Respiratory: Diminished (Diminished on the left side) Cardiovascular: No edema, Regular rate/rhythm, Normal S1 S2 Gastrointestinal: Normal bowel sounds, Soft and benign Musculoskeletal: No clubbing, No swelling Integumentary: No rashes, No breakdown Neurological: Normal speech, Normal strength at 5/5 x4 extr Laboratory Data (last 24 hrs) 05/08/23 11:53 Sodium 134 L Potassium 4.0 BUN 13 Creatinine 0.93 Glucose 104 Magnesium 2.1 Total Bilirubin 0.4 AST 7 L ALT 14 Alkaline Phosphatase 69 - Problems (1) Pleural effusion Current Visit: Yes Status: Acute Plan: Patient is 73 years of age admitted with dyspnea has massive effusion on the left side most likely malignant labs chemistries reviewed have consulted For a Pleurx catheter vital signs stable increase frequency of pain medications n.p.o. after midnight
--- NOTE | 2023-05-09 13:02 | P.PN ---
Subjective Date of Service: 05/09/23 Chief Complaint: Shortness of breath No major changes from yesterday. Patient is maintained on 2 L oxygen by nasal cannula. She desaturated on room air to 88% last night. Physical Examination - Vital Signs Temperature: 97.9 F Blood Pressure: 177/81 Pulse: 88 Respirations: 16 Pulse Ox (%): 95 - Physical Exam General: Alert, In no apparent distress, Oriented x3 Neck: Supple, JVD not distended Respiratory: Diminished (On the left), Other (No crackles) Cardiovascular: No edema, Regular rate/rhythm, Normal S1 S2 Gastrointestinal: Normal bowel sounds, Soft and benign, Non-distended, No tenderness Integumentary: No rashes, No cyanosis Neurological: Normal strength at 5/5 x4 extr, Cranial nerves 3-12 intact Assessment And Plan - Current Problems (Diagnosis) (1) Pleural effusion on left Current Visit: Yes Status: Acute (2) Atelectasis, left Current Visit: Yes Status: Acute (3) History of lung cancer Current Visit: Yes Status: Acute (4) GERD (gastroesophageal reflux disease) Current Visit: Yes Status: Acute (5) Hyponatremia Current Visit: Yes Status: Acute - Plan Large left pleural effusion/history of lung cancer/atelectasis Fluid appear not to be loculated. Pulmonary Dr. Denise assisting with management. Pleurx catheter recommended by pulmonary, Dr. Altamirano consulted for Pleurx catheter placement. Infiltrate not ruled out so we will cover empirically with IV Levaquin. Repeat imaging after pleural fluid drainage. Bronchodilators as needed Supportive measures with IV morphine as needed for pain and shortness of breath. Resume home dose [place]. Home oxygen assessment of the pleural fluid drainage. Hyponatremia Mild Monitor BMP. GERD Resume home dose PPI. DVT prophylaxis: Heparin SQ CODE STATUS: Full code.
[2023-05-09] MEDS: LIDOCAINE 2% INJ, 20 mL 0 ML ONE (14:30)
--- NOTE | 2023-05-09 15:02 | P.OP ---
Preoperative diagnosis: Chronic LEFT Pleural Effusion Postoperative diagnosis: Chronic LEFT Pleural Effusion Primary procedure: Placement of LEFT Pleur-X Indwelling thoracic catheter Anesthesia: GETA + Local Estimated blood loss: <1cc Specimen: Straw fluid sent Findings: 1 liter straw colored fluid removed Complications: None Drain(s): Other (Pleur-X) Transferred to: Other (Floor) Condition: Good
[2023-05-09 16:51] LABS: Appearance SLT. TURBID (CLEAR); Body Fluid Source PLEURAL; Color of fluid Yellow (COLORLESS)
[2023-05-09 16:52] LABS: Body Fluid WBC 358 /mm^3
--- NOTE | 2023-05-09 20:37 | RAD REPORT ---
EXAM DESCRIPTION: RADChest Single View05/09/2023 5:34 pm CLINICAL HISTORY: chest tube placement COMPARISON: Chest Single View dated 05/08/2023; Chest Single View dated 11/28/2022; Chest Single View d ated 12/27/2021; Chest Single View dated 12/27/2021; Thorax Wo Con dated 05/08/2023 TECHNIQUE: Portable AP view of the chest. FINDINGS: Interval placement of left pleural drainage catheter directed superiorly and towards the h ilum. Interval mild decrease in volume of the large left pleural effusion. Underlying airspace opacif ication again seen. No pneumothorax. The cardiomediastinal contours are unremarkable. IMPRESSION: Mild interval reduction in volume of the left pleural effusion following left pleural dr ainage catheter placement.
[2023-05-09] MEDS: TRAZODONE 150 MG TAB PO SCH (21:00)
--- NOTE | 2023-05-09 21:22 | OP ---
Date of Procedure: 05/09/2023 Surgeon: John Altamirano MD, Preoperative Diagnosis: Chronic left pleural effusion. Postoperative Diagnosis: Chronic left pleural effusion. Procedure Performed: Placement of a left PleurX indwelling thoracic catheter. Anesthesia: Local 1% lidocaine without epinephrine. Estimated Blood Loss: Less than 1 cc. Specimens: Straw-colored fluid sent. Findings: 1 L of straw colored nonbloody fluid removed. Complications: None. Drains: PleurX catheter. Disposition: Patient remained in floor bed in good condition throughout the procedure. Procedure In Detail: After informed consent was obtained, area was prepped and draped in the usual s terile fashion. After adequate anesthesia was achieved with 1% lidocaine without epinephrine in the left fifth and sixth intercostal space, I made a small mike incision overlying the rib. I then anest hetized the tract into the chest wall as well going over the rib using 1% lidocaine. I then changed to a finder needle and cannulated the left thoracic cavity going over the rib. Immediately straw-col ored fluid was encountered. I advanced the wire at this point, removed the introducer sheath. At th is point, I anesthetized the tract inferolateral from that area with 1% lidocaine, made a small count er incision using an 11 blade. I then brought the tunneling device into the field and brought the Pl eurX catheter through the insertion site from the exit site using the tunneling device. At this poin t, I performed sequential dilatation using Seldinger technique using the attached dilators and introd ucer sheath. At this point, the catheter was placed into the left thoracic space, placing it cranial ly and posteriorly with straw, nonbloody fluid returned. I then irrigated the area after the cathete r was placed and the introducer sheath removed and sewed the insertion site, closed with 2 single int errupted attached 2-0 nylon sutures in an interrupted fashion. Good approximation of tissues. A will rile dressing was then placed over top. At this point, I removed 1 L of straw-colored fluid without incident or complication using a negative pressure bottle and patient did well throughout the procedu re. All counts were correct at the end of the case. MARLENE/HERONL Voice ID: [id number] Report ID: [id number]
[2023-05-10] MEDS: LORAZEPAM 0.5 MG TABLET PO ONE (01:56)
[2023-05-10 07:05] LABS: Albumin 2.9 g/dL (3.4-5.0); Phosphorus 2.7 mg/dL (2.5-4.9); Potassium 3.7 mEq/L (3.5-5.1)
--- NOTE | 2023-05-10 10:23 | RAD REPORT ---
EXAM DESCRIPTION: RAD - Chest Single View - 05/10/2023 10:15 am CLINICAL HISTORY: SP PleuRX COMPARISON: Chest Single View dated 05/09/2023; Chest Single View dated 05/08/2023; Chest Single View da tanner 11/28/2022; Chest Single View dated 12/27/2021; Chest dated 05/08/2023; Thorax Wo Con dated 05/08/2023 FINDINGS: Left-sided tunneled pleural catheter in similar position with tip at the left mid lung. Si milar size large left pleural effusion. The right lung is clear. The mediastinal shift from left to r ight is noted. Left shoulder arthroplasty. No pneumothorax. IMPRESSION: Similar large left pleural effusion with tunneled pleural catheter in similar position.
[2023-05-10] MEDS: ESCITALOPRAM 20 MG TAB PO SCH (11:03)
--- NOTE | 2023-05-10 12:28 | P.PN ---
Subjective Date of Service: 05/10/23 Chief Complaint: Effusion s/p Pleurx catheter Subjective: Improving (Shortness of breath is slightly better approximately 2 L were drained) Review of Systems General: Weakness Respiratory: Shortness of Breath Physical Examination - Vital Signs Temperature: 98.4 F Blood Pressure: 151/84 Pulse: 91 Respirations: 16 Pulse Ox (%): 97 - Physical Exam General: Alert, Oriented x3 Respiratory: Diminished (On the left side) Cardiovascular: No edema, Regular rate/rhythm (Currently diminished on the left side) Assessment And Plan - Current Problems (Diagnosis) (1) Pleural effusion Current Visit: Yes Status: Acute Plan: 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
--- NOTE | 2023-05-10 13:40 | P.PN ---
Subjective Date of Service: 05/10/23 Chief Complaint: Effusion s/p Pleurx catheter Patient reports only a slight improvement in her shortness of breath after 1 L of pleural fluid was drained yesterday during Pleurx catheter insertion. Patient is maintained on 2 L oxygen by nasal cannula. She denies any chest pain. Physical Examination - Vital Signs Temperature: 98.4 F Blood Pressure: 151/84 Pulse: 91 Respirations: 16 Pulse Ox (%): 97 Assessment And Plan - Current Problems (Diagnosis) (1) Pleural effusion on left Current Visit: Yes Status: Acute (2) Atelectasis, left Current Visit: Yes Status: Acute (3) History of lung cancer Current Visit: Yes Status: Acute (4) GERD (gastroesophageal reflux disease) Current Visit: Yes Status: Acute (5) Hyponatremia Current Visit: Yes Status: Acute - Plan Physical Exam General: Alert, In no apparent distress, Oriented x3 Neck: Supple, JVD not distended Respiratory: Diminished (On the left), No crackles. Pleurx catheter-left flank Cardiovascular: No edema, Regular rate/rhythm, Normal S1 S2 Gastrointestinal: Normal bowel sounds, Soft and benign, Non-distended, No tenderness Integumentary: No rashes, No cyanosis Neurological: Normal strength at 5/5 x4 extr, Cranial nerves 3-12 intact Assessment and plan Large left pleural effusion/history of lung cancer/atelectasis Status post Pleurx catheter. About 3 L of fluid drained since Pleurx catheter insertion. Pulmonary Dr. Denise assisting with management. Antibiotics discontinued Daily pleural fluid drainage until significantly amount has been drained. Serial chest x-ray Bronchodilators as needed Supportive measures with IV morphine as needed for pain and shortness of breath. Continue home dose [place]. Home oxygen assessment. Hyponatremia Mild Sodium level appears stable. Monitor BMP. GERD Continue home dose PPI. DVT prophylaxis: Heparin SQ CODE STATUS: Full code.
[2023-05-11 06:42] LABS: Albumin 2.6 g/dL (3.4-5.0); Phosphorus 2.8 mg/dL (2.5-4.9); Potassium 3.7 mEq/L (3.5-5.1)
--- NOTE | 2023-05-11 08:30 | RAD REPORT ---
EXAM DESCRIPTION: RADChest Single View05/11/2023 4:36 am CLINICAL HISTORY: SP PleuRX COMPARISON: Chest Single View dated 05/10/2023; Chest Single View dated 05/09/2023; Chest Single View da tanner 05/08/2023; Chest Single View dated 11/28/2022 TECHNIQUE: Portable AP view of the chest. FINDINGS: Marked interval reduction in size of the left pleural effusion with a small residual. Unde rlying postsurgical changes. PleurX catheter unchanged in position. Right costophrenic angle blunting versus trace effusion are stable. Interval development of a small left pneumothorax, with pleural se paration measuring 1.4 cm at the apex. The cardiomediastinal contours are unremarkable. IMPRESSION: Marked interval reduction in size of the left pleural effusion with a small residual. Un derlying postsurgical changes. A small left apical pneumothorax is now noted. The findings were communicated to Dr. Denise on 05/11/2023 at 08:25 hours.
[2023-05-11] MEDS: POTASSIUM CL SA 10 MEQ TAB PO ONE (09:00)
--- NOTE | 2023-05-11 09:09 | P.PN ---
Subjective Date of Service: 05/11/23 Chief Complaint: Effusion s/p Pleurx catheter Patient is complaining of significant amount of pain she takes hydrocodone 4 times a day as prescribed by her pain doctor small pneumothorax on the left side shortness of breath has improved Review of Systems Unremarkable Respiratory: Shortness of Breath Cardiovascular: Chest Pain Physical Examination - Vital Signs Temperature: 98.3 F Blood Pressure: 126/71 Pulse: 87 Respirations: 18 Pulse Ox (%): 97 - Physical Exam General: Alert, Oriented x3 Respiratory: Diminished (On the left side) Cardiovascular: No edema, Normal S1 S2 Assessment And Plan - Current Problems (Diagnosis) (1) Pleural effusion Current Visit: Yes Status: Acute Plan: Patient is s/p Pleurx catheter ending of significant amount of pain changed to scheduled hydrocodone for now has a small pneumothorax apical on the left side will monitor check another x-ray if it remains stable possible discharge she already has a Pleurx catheter Labs chemistries reviewed 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
[2023-05-11] MEDS ORDERED: HYDROCODONE/APAP 10/325 TAB PO SCH (10:00)
[2023-05-11] MEDS: HYDROCODONE/APAP 10/325 TAB PO SCH (10:04)
--- NOTE | 2023-05-11 12:33 | P.PN ---
Subjective Date of Service: 05/11/23 Chief Complaint: Effusion s/p Pleurx catheter Patient reports significant improvement in shortness of breath. Repeat checks x-ray shows considerable improvement in left-sided pleural effusion back small apical pneumothorax. Patient is maintained on 2 L oxygen by nasal cannula. Physical Examination - Vital Signs Temperature: 98.3 F Blood Pressure: 126/71 Pulse: 87 Respirations: 18 Pulse Ox (%): 97 Assessment And Plan - Current Problems (Diagnosis) (1) Pleural effusion on left Current Visit: Yes Status: Acute (2) Atelectasis, left Current Visit: Yes Status: Acute (3) History of lung cancer Current Visit: Yes Status: Acute (4) GERD (gastroesophageal reflux disease) Current Visit: Yes Status: Acute (5) Hyponatremia Current Visit: Yes Status: Acute - Plan Physical Exam General: Alert, In no apparent distress, Oriented x3 Neck: Supple, JVD not distended Respiratory: Improved breath sounds bilaterally, no crackles. Pleurx catheter- left flank Cardiovascular: No edema, Regular rate/rhythm, Normal S1 S2 Gastrointestinal: Normal bowel sounds, Soft and benign, Non-distended, No tenderness Integumentary: No rashes, No cyanosis Neurological: Normal strength at 5/5 x4 extr, Cranial nerves 3-12 intact Assessment and plan Large left pleural effusion/history of lung cancer/atelectasis/left apical p neumothorax Status post Pleurx catheter. About 3 L of fluid drained since Pleurx catheter insertion. Pulmonary Dr. Denise assisting with management. Antibiotics discontinued Minimal residual pleural fluid. Drain as needed. Serial chest x-ray Bronchodilators as needed Supportive measures with IV morphine as needed for pain and shortness of breath. Continue home dose [place]. Home oxygen arranged. Hyponatremia Mild Sodium level appears stable. Monitor BMP. GERD Continue home dose PPI. DVT prophylaxis: Heparin SQ CODE STATUS: Full code.
--- NOTE | 2023-05-11 12:34 | RAD REPORT ---
EXAM DESCRIPTION: RADChest Single View05/11/2023 12:13 pm CLINICAL HISTORY: f/u pneumothorax COMPARISON: Chest Single View dated 05/11/2023; Chest Single View dated 05/10/2023; Chest Single View da tanner 05/09/2023; Chest Single View dated 05/08/2023 TECHNIQUE: Portable AP view of the chest. FINDINGS: Stable residual left layering pleural effusion with underlying postsurgical changes. Pleur X catheter unchanged in position. Small left apical pneumothorax is not significantly changed. Right costophrenic angle blunting again seen. . The cardiomediastinal contours are unremarkable. IMPRESSION: No significant interval change.
[2023-05-11] MEDS ORDERED: IPRATROPIUM BROM 0.5MG/2.5ML NEB PRN (13:49)
[2023-05-11] MEDS ORDERED: ALBUTEROL 2.5 MG/3 ML NEB SOL NEB PRN (13:56)
[2023-05-12] MEDS: TEMAZEPAM 15 MG CAP PO PRN (03:49)
[2023-05-12 04:09] LABS: Albumin 2.5 g/dL (3.4-5.0); Phosphorus 2.7 mg/dL (2.5-4.9)
--- NOTE | 2023-05-12 07:07 | RAD REPORT ---
EXAM DESCRIPTION: RAD - Chest Single View - 05/12/2023 6:34 am CLINICAL HISTORY: SP PleuRX COMPARISON: Chest Single View dated 05/11/2023; Chest Single View dated 05/11/2023; Chest Single View da tanner 05/10/2023; Chest Single View dated 05/09/2023; Thorax Wo Con dated 05/08/2023 FINDINGS: Lines: Tunneled left pleural catheter in place with tip located medially and inferiorly in the left thorax. Lungs: Atelectasis as result of the left pleural fluid. Pleural: Small moderate left pleural fluid remains. Previous identified pneumothorax not well identif ied Cardiac: The heart size is within normal limits. Mediastinum: Within normal limits. Bones: No acute fractures. Left shoulder arthroplasty. Other: Subcutaneous emphysema in the left upper chest wall. IMPRESSION: Small to moderate left pleural effusion remaining and probably underlying atelectasis. N o appreciable pneumothorax identified.
[2023-05-12 07:53] VITALS: BP 141/65; TEMP 97.6
[2023-05-12] MEDS: PANTOPRAZOLE 40MG TABLET PO SCH (09:03)
--- NOTE | 2023-05-12 10:52 | P.DS ---
Admission Date: 05/08/23 Discharge Date: 05/12/23 Disposition: ROUTINE DISCHARGE Discharge Condition: FAIR Reason for Admission: Effusion s/p Pleurx catheter - Problems (1) Pleural effusion on left Current Visit: Yes Status: Acute (2) Atelectasis, left Current Visit: Yes Status: Acute (3) History of lung cancer Current Visit: Yes Status: Acute (4) GERD (gastroesophageal reflux disease) Current Visit: Yes Status: Acute (5) Hyponatremia Current Visit: Yes Status: Acute Brief History of Present Illness: 73-year-old history of lung cancer status post left lower lobe lobectomy and chemotherapy in 2020, declared disease-free and currently under surveillance presented to the emergency department with a complaint of progressive shortness of breath and left-sided back pain. Patient reported she developed extreme shortness of breath last night and therefore presented to the emergency department today. Chest x-ray done in the emergency department demonstrated large opacification in the left lung, CT chest showed large left pleural effusion and atelectasis, mass or infiltrate not ruled out. Patient has no leukocytosis, no tachycardia and does not meet criteria for sepsis. No documented hypoxia. Case discussed with pulmonary Dr. Denise who recommended chest ultrasound which confirmed large pleural effusion and which does not appear to be loculated, and atelectasis. Patient was hospitalized for further management. Hospital Course: Patient admitted to the medical floor and the following medical problems addressed: Large left pleural effusion/history of lung cancer/atelectasis/left apical pneumothorax Acute respiratory failure with hypoxia Subcutaneous emphysema Status post Pleurx catheter. About 3 L of fluid drained since Pleurx catheter insertion. Pulmonary Dr. Denise assisted with management. She was briefly on antibiotics which was discontinued. Also treated with bronchodilators as needed Continue home dose [place]. Patient desaturated to the 80s on room air. Home oxygen arranged. Spouse has been educated how to drain the Pleurx catheter. Left apical pneumothorax resolved. Hyponatremia Mild Sodium level was stable GERD Continued home dose PPI. Patient was admitted for management of large left pleural effusion. Pleurx catheter was inserted and pleural effusion drained 3 times. A total of 3 L drained Serial chest x-ray showed residual small to moderate left-sided pleural effusion. Patient developed a small left apical pneumothorax which resolved according to most recent chest x-ray on 05/12/2023. Pleural fluid culture did not yield any growth. Other lab test done on the pleural fluid is pending. Patient need to follow-up with Dr. Denise within 1 to 2 weeks. Patient is advised not to drain more than 1000 ml from the Pleurx catheter at the time. Patient is discharged with oxygen to use temporarily. Dr. Denise will follow with patient to reassess need for continuous oxygen. Vital Signs/Physical Exam: Temp Pulse Resp BP Pulse Ox 97.6 F 96 H 16 141/65 H 98 05/12/23 07:52 05/12/23 07:52 05/12/23 07:52 05/12/23 07:52 05/12/23 07:52 General: Alert, In no apparent distress, Oriented x3 HEENT: Mucous membr. moist/pink Neck: Supple, JVD not distended Respiratory: Other (Improved breath sounds-left lung, adequate breath sounds right lung.) Cardiovascular: No edema, Regular rate/rhythm, Normal S1 S2 Gastrointestinal: Normal bowel sounds, Soft and benign, Non-distended, No tenderness Musculoskeletal: No swelling Integumentary: No rashes, No cyanosis Neurological: Normal strength at 5/5 x4 extr Laboratory Data at Discharge: WBC 6.30 thou/uL (4.3-10.9) 05/09/23 06:26 Hgb 14.0 g/dL (12.0-15.0) 05/09/23 06:26 Hct 41.3 % (36.0-45.0) 05/09/23 06:26 Plt Count 251 thou/uL (152-406) 05/09/23 06:26 PT 13.5 SECONDS (9.5-12.5) H 05/09/23 06:26 INR 1.23 05/09/23 06:26 Sodium 136 mEq/L (136-145) 05/12/23 02:30 Potassium 5.0 mEq/L (3.5-5.1) D 05/12/23 02:30 BUN 11 mg/dL (7-18) 05/12/23 02:30 Creatinine 0.89 mg/dL (0.55-1.02) 05/12/23 02:30 Glucose 115 mg/dL (74-106) H 05/12/23 02:30 Phosphorus 2.7 mg/dL (2.5-4.9) 05/12/23 02:30 Magnesium 2.0 mg/dL (1.6-2.4) 05/09/23 06:26 Total Bilirubin 0.4 mg/dL (0.2-1.0) 05/08/23 11:53 AST 7 U/L (15-37) L 05/08/23 11:53 ALT 14 U/L (13-56) 05/08/23 11:53 Alkaline Phosphatase 69 U/L (45-117) 05/08/23 11:53 Home Medications: Escitalopram [Lexapro*] 20 mg PO DAILY 08/04/14 Hydrocodone Bit/Acetaminophen [Hydrocodon-Acetaminophn 10-325] 1 each PO QID 08/04/14 Tizanidine [Zanaflex*] 4 mg PO TID 08/04/14 Esomeprazole Mag Trihydrate [Nexium] 40 mg PO DAILY 01/03/18 Trazodone HCl 150 mg PO BEDTIME 06/04/19 Gabapentin [Neurontin*] 400 mg PO QID 06/11/19 Forteo 1 unit SQ BEDTIME 05/08/23 Albuterol Neb [Proventil 0.083% Neb Soln] 2.5 mg NEB [id number] PRN #120 amp 05/12/23 Nebulizer 1 each MC TID #1 ea 05/12/23 New Medications: Albuterol Neb [Proventil 0.083% Neb Soln] 2.5 mg NEB [id number] PRN #120 amp PRN Reason: Shortness Of Breath Nebulizer 1 each MC TID #1 ea Physician Discharge Instructions: Patient was admitted for management of large left pleural effusion. Pleurx catheter was inserted and pleural effusion drained 3 times. A total of 3 L drained Serial chest x-ray showed residual small to moderate left-sided pleural effusion. Patient developed a small left apical pneumothorax which resolved according to most recent chest x-ray on 05/12/2023. Pleural fluid culture did not yield any growth. Other lab test done on the pleural fluid is pending. Patient need to follow-up with Dr. Denise within 1 to 2 weeks. Patient is advised not to drain more than 1000 ml from the Pleurx catheter at the time. Patient is discharged with oxygen to use temporarily. Dr. Denise will follow with patient to reassess need for continuous oxygen. Diet: AHA Activity: Ad kevin Followup: Wang Denise MD [ACTIVE - CAN ADMIT] - 1-2 Weeks Doug Wolf DO [Primary Care Provider] - Time spent managing pt's care (in minutes): 42
--- NOTE | 2023-05-12 11:21 | P.PN ---
Subjective Date of Service: 05/12/23 Chief Complaint: Effusion s/p Pleurx catheter Is improving still complaining of pain Review of Systems General: Weakness Respiratory: Shortness of Breath Cardiovascular: Chest Pain Physical Examination - Vital Signs Temperature: 97.6 F Blood Pressure: 141/65 Pulse: 96 Respirations: 16 Pulse Ox (%): 98 - Physical Exam General: Alert, Oriented x3 Respiratory: Clear to auscultation bilaterally, Diminished (On the left side) Cardiovascular: No edema, Normal S1 S2 Assessment And Plan - Current Problems (Diagnosis) (1) Pleural effusion Current Visit: Yes Status: Acute Plan: No change in patient's condition still complains of chest pain. No significant change still has a small left apical pneumothorax stable for discharge pathology results are pending and stable patient has a pain management doctor "on 4 times a day
[2023-05-12 14:42] VITALS: O2SAT 97
== END 2023-05-12 11:18 | disposition home health service (06) | DRG 843 ==
LOC: ER 10:15 → ERHOLD 16:21 → 2ND 16:57
PROVIDERS: ADMIT Internal Medicine; ATTEND Internal Medicine
PROC: 0W9B30Z Drainage of Left Pleural Cavity with Drainage Device, Percutaneous Approach (ICD-10-PCS; principal; 2023-05-09)
DX: C80.1 Malignant (primary) neoplasm, unspecified (principal); J96.01 Acute respiratory failure with hypoxia; E87.1 Hypo-osmolality and hyponatremia; T79.7XXA Traumatic subcutaneous emphysema, initial encounter; J95.811 Postprocedural pneumothorax; J91.0 Malignant pleural effusion; K21.9 Gastro-esophageal reflux disease without esophagitis; Z90.2 Acquired absence of lung [part of]; Z88.8 Allergy status to other drugs, medicaments and biological substances; Z92.21 Personal history of antineoplastic chemotherapy; Z79.899 Other long term (current) drug therapy; Z90.710 Acquired absence of both cervix and uterus; Z85.118 Personal history of other malignant neoplasm of bronchus and lung; Z87.891 Personal history of nicotine dependence
CPT/HCPCS: 36415; 71045; 71250; 76604; 80048; 80069; 80076; 82945; 83615; 83735; 83880; 84100; 84157; 84311; 84484; 85025; 85610; 87015; 87070; 87102; 87116; 87206; 88305; 88312; 89050; 93005; 94640; 94760; J1644; J2270; J2405; J7644; J7799

== ENCOUNTER 2023-07-20 11:11 | Day surgery (SDC) | payer OTHER ==
[2023-07-18 16:26] LABS: Absolute Eosinophils 0.2 K/uL (0-0.5); Absolute Lymphocytes (CBC) 1.2 K/uL (0.7-4.9); Absolute Monocytes 0.3 K/uL (0.1-1.3); Absolute Neutrophil 2.2 K/uL (1.8-8.0); Basophils % 0.9 % (0-1.3); Eosinophils % 4.3 % (0-4.4); Hematocrit 34.4 % (36.0-45.0); Hemoglobin 11.1 g/dL (12.0-15.0); Lymphocytes % 31.2 % (15.3-44.8); MCH 30.3 pg (27.0-35.0); MCHC 32.4 g/dL (32.0-36.0); MCV 93.7 fL (80-100); MPV 7.9 fL (7.6-11.3); Monocytes % 6.5 % (3.3-12.3); Neutrophils % 57.1 % (41.7-73.7); Platelets 149 thou/uL (152-406); RBC Red Blood Cell Count 3.67 M/uL (3.86-4.86); Red Cell Distribution Width 15.6 % (12.1-15.2)
[2023-07-18 16:36] LABS: Anion Gap 2.8 mEq/L (5.0-15.0); Potassium 3.8 mEq/L (3.5-5.1)
[2023-07-20] MEDS: Ringers Lactate 1,000 ML IV ONE (11:57)
[2023-07-20] MEDS: HYDROMORPHONE HCL 1 MG/ML INJ ONE (12:54)
[2023-07-20] MEDS ORDERED: ONDANSETRON 4 MG/2 ML VIAL ONE (12:58)
[2023-07-20] MEDS ORDERED: MIDAZOLAM HCL 2 MG/2 ML INJ ONE (14:21)
[2023-07-20] MEDS: CEFAZOLIN SODIUM 2 GM/VIAL ONE (14:27)
[2023-07-20] MEDS ORDERED: LIDOCAINE 1% MPF 5 ML VIAL ONE (14:30)
[2023-07-20] MEDS ORDERED: propofoL 200 MG/20 ML VIAL IV ONE (14:30)
[2023-07-20] MEDS: LIDOCAINE HCL/EPINEPHRINE 20 ML MDV ONE (14:53)
--- NOTE | 2023-07-20 15:00 | P.OP ---
Preoperative diagnosis: LEFT PleurX Cath Dysfunction Postoperative diagnosis: LEFT PleurX Cath Dysfunction Primary procedure: Removal of LEFT Pleur-X Thoracic Catheter Anesthesia: MAC + Local Estimated blood loss: <1cc Specimen: Cath Tip for culture Findings: Catheter occluded Complications: None Transferred to: Recovery Room Condition: Good
[2023-07-20] MEDS: FENTANYL CITR 100 MCG/2 ML ONE (15:22)
[2023-07-20 15:35] VITALS: O2SAT 100
--- NOTE | 2023-07-20 15:40 | RAD REPORT ---
EXAM DESCRIPTION: SMILEYSarthak Single View07/20/2023 3:23 pm CLINICAL HISTORY: Removal of a catheter. COMPARISON: June 2023 FINDINGS: Since the prior exam a catheter has been removed. No pneumothorax noted
--- NOTE | 2023-07-20 16:10 | OP ---
Date of Procedure: 07/20/2023 Surgeon: John Altamirano MD, Preoperative Diagnosis: Left PleurX catheter dysfunction. Postoperative Diagnosis: Left PleurX catheter dysfunction. Procedure Performed: Removal of a left PleurX thoracic catheter. Anesthesia: MAC plus local with 0.25% Marcaine. Estimated Blood Loss: Less than 1 cc. Specimen: Cath tip sent for culture. Findings: Catheter was occluded after being removed and examined. Complications: None. Disposition: Patient transferred to recovery room in good condition. Procedure In Detail: After informed consent was obtained, patient was brought to the operating room, prepped and draped in the usual sterile fashion after adequate anesthesia was achieved, I dilated up the tract where the cuff of the left thoracic catheter was placed. After appropriately anesthetizin g the skin, the catheter cuff was brought into visual range. Using a combination of sharp dissection and electrocautery to remove the cuff from the ingrown tissue, I then held pressure at the exit site and removed this, after suctioning out the few cc of fluid out of the PleurX catheter using a vacuta iner. At this point, the catheter was removed. The tip was sent for culture. No hemostatic measure s were required. The area was irrigated and the insertion site was closed with a single interrupted 3-0 nylon suture and sterile dressing placed over top. Patient tolerated the procedure without incident or complication, transferred to PACU in good condition. All counts were correct at the end of the case. MARLENE/HERONL Voice ID: [id number] Report ID: [id number]
[2023-07-20 17:17] VITALS: BP 149/67; TEMP 98.7
== END 2023-07-20 16:40 | disposition home or self-care (01) ==
LOC: OR 11:11
PROVIDERS: ATTEND Surgery
PROC: 0WPB03Z Removal of Infusion Device from Left Pleural Cavity, Open Approach (ICD-10-PCS; principal; 2023-07-20 12:30)
DX: Z45.2 Encounter for adjustment and management of vascular access device (principal); C34.90 Malignant neoplasm of unspecified part of unspecified bronchus or lung; F32.A Depression, unspecified; B17.9 Acute viral hepatitis, unspecified
CPT/HCPCS: 85025; 80048; 36415; 88300; 71045; 32552; J2704; J2001; J2250; J3010; J1170; J2405; J7120

== ENCOUNTER 2024-03-12 23:24 | Emergency (ER) | payer OTHER ==
[2024-03-13] MEDS ORDERED: ONDANSETRON 4 MG/2 ML VIAL ONE (00:11)
[2024-03-13] MEDS ORDERED: CEFTRIAXONE 1000 MG/VIAL ONE (00:11)
[2024-03-13] MEDS ORDERED: IPRATROPIUM BROM 0.5MG/2.5ML ONE (00:11)
[2024-03-13] MEDS ORDERED: ACETAMINOPHEN 500 MG TAB ONE (00:11)
[2024-03-13] MEDS ORDERED: ALBUTEROL 2.5 MG/3 ML NEB SOL ONE (00:11)
[2024-03-13] MEDS ORDERED: METHYLPREDNISOLONE 125 MG INJ ONE (00:11)
[2024-03-13] MEDS ORDERED: NA CHLORIDE 0.9% 50 ML ONE (00:12)
[2024-03-13] MEDS ORDERED: NA CHLORIDE 0.9% 250 ML ONE ×2 (00:12→05:34)
[2024-03-13] MEDS ORDERED: AZITHROMYCIN 500 MG INJ IVPB ONE (00:12)
[2024-03-13] MEDS ORDERED: NA CHLORIDE 0.9% 1,000 ML ONE (00:12)
[2024-03-13] MEDS ORDERED: D5 0.9 NS 1,000 ML IV ONE (00:13)
[2024-03-13 00:44] LABS: Hematocrit 34.9 % (36.0-45.0); Red Cell Distribution Width 13.7 % (12.1-15.2)
[2024-03-13 00:46] LABS: PT Prothrombin Time 13.1 SECONDS (9.4-12.5); PTT, Activated Partial Thromb 34.8 SECONDS (24.3-36.9); Protime INR 1.18
[2024-03-13 00:50] LABS: Absolute Lymphocytes (CBC) 0.2 K/uL (0.7-4.9); Absolute Monocytes 0.1 K/uL (0.1-1.3); Absolute Neutrophil 1.1 K/uL (1.8-8.0); Basophils % 0.2 % (0-1.3); Eosinophils % 0.1 % (0-4.4); Hemoglobin 11.5 g/dL (12.0-15.0); MCH 29.8 pg (27.0-35.0); MCHC 32.9 g/dL (32.0-36.0); MCV 90.3 fL (80-100); MPV 8.6 fL (7.6-11.3); Monocytes % 7.1 % (3.3-12.3); Neutrophils % 76.6 % (41.7-73.7); Nucleated Red Blood Cells % 0.2 % (0-0); Platelets 55 thou/uL (152-406); RBC Red Blood Cell Count 3.86 M/uL (3.86-4.86)
[2024-03-13 01:01] LABS: ALT/SGPT 25 U/L (13-56); AST/SGOT 42 U/L (15-37); Albumin 3.5 g/dL (3.4-5.0); Albumin/Globulin Ratio 1.3 (1.1-1.8); Alkaline Phosphatase 60 U/L (45-117); Anion Gap 10.5 mEq/L (5.0-15.0); BUN Blood Urea Nitrogen 15 mg/dL (7-18); Bicarbonate 25 mEq/L (21-32); Bilirubin Total 0.3 mg/dL (0.2-1.0); Globulin 2.6 g/dL (2.3-3.5); Glomerular Filtration Rate 51 ml/min (=/>90); Glucose Level 131 mg/dL (74-106); NT PRO-BNP 1387 pg/mL (<125); Potassium 3.5 mEq/L (3.5-5.1); Protein, Total 6.1 g/dL (6.4-8.2); Sodium Level 126 mEq/L (136-145); Thyroid Stimulating Hormone 0.593 uIU/mL (0.358-3.740); Troponin High Sensitivity 36.8 pg/mL (<58.9)
[2024-03-13 01:20] LABS: C-Reactive Protein < 2.90 mg/L (<3.00)
[2024-03-13 02:07] LABS: Blood Morphology Comment NOT SEEN (NOT SEEN); Platelet Estimate DECR; White Blood Cell Scan OK (OK)
[2024-03-13] MEDS ORDERED: GUAIFENESIN/DM 5 ML UCUP ONE (02:23)
[2024-03-13] MEDS ORDERED: ALBUMIN HUMAN 25% 200 ML IV ONE (02:24)
[2024-03-13] MEDS ORDERED: NA CHLORIDE 0.9% 500 ML ONE (02:56)
--- NOTE | 2024-03-13 04:14 | ER ---
Nurse's Notes [facility] Name: Shree Rothman Age: 73 yrs Sex: Female : 1950 Arrival Date: 03/12/2024 Time: 23:24 Bed 2 Private MD: Diagnosis: Severe sepsis with septic shock;Hypoxemia;Syncope and collapse, hyponatremia, hypoxemia, COPD exacerbation, left pleural effusion Presentation: 03/12 23:35 Chief complaint: EMS states: WE GOT A CALL FOR UNCONSCIOUSNESS, ON OUR ARRIVAL PATIENT ha1 AOx4. lOW BLOOD PRESSURE BP 67/30, OXYGEN SATURATION 97 ON THREE LITERS NASAL CANULA. FLU LIKE SYMPTOMS FOR THE PAST THREE DAYS. 1 MG OF EPI WAS GIVEN, AND 1 LITER OF NS. BP NOW 134/68 HR 85. 23:35 Coronavirus screen: Client denies travel out of the [place] in the last 14 days. Ebola ha1 Screen: No symptoms or risks identified at this time. Initial Sepsis Screen: Does the patient meet any 2 criteria? No. Patient's initial sepsis screen is negative. Does the patient have a suspected source of infection?. Risk Assessment: Do you want to hurt yourself or someone else? Patient reports no desire to harm self or others. Onset of symptoms was March 13, 2024. 23:35 Method Of Arrival: EMS: [facility] ha1 23:35 Acuity: DANYEL 2 ha1 Historical: - Allergies: 03/13 00:15 B-12; ha1 00:15 CT contrast; ha1 - PMHx: 00:15 Anxiety; CHRONS; GERD (Lung Cancer); Intercostal neuralgia; Lung Cancer; ha1 - Immunization history:: Reviewed. - Social history:: Patient/guardian denies using tobacco products, Smoking status: unknown. - Infectious Disease History:: Denies. - Family history:: not pertinent. Screenin:00 [facility] ED Fall Risk Assessment (Adult) History of falling in the last 3 months, al5 including since admission No falls in past 3 months (0 pts) Confusion or Disorientation No (0 pts) Intoxicated or Sedated No (0 pts) Impaired Gait No (0 pts) Mobility Assist Device Used No (0 pt) Altered Elimination No (0 pt) Score/Fall Risk Level 0 - 2 = Low Risk Oriented to surroundings, Maintained a safe environment, Hourly rounding (assess needs \T\ fall precautionary measures) done. Abuse screen: Denies threats or abuse. Denies injuries from another. Nutritional screening: No deficits noted. Tuberculosis screening: No symptoms or risk factors identified. Assessment: 00:30 General: Appears distressed, uncomfortable, Behavior is calm, cooperative, appropriate jb4 for age. Pain: Denies pain. Neuro: Level of Consciousness is awake, alert, obeys commands, Oriented to person, place, time, situation. Cardiovascular: Patient's skin is warm and dry. Respiratory: Airway is patent Respiratory effort is unlabored, labored, Respiratory pattern is symmetrical, tachypnea. Derm: Skin is intact, Skin is pink, warm \T\ dry. 01:30 Reassessment: Patient appears in no apparent distress at this time. Patient and/or jb4 family updated on plan of care and expected duration. Pain level reassessed. Patient is alert, oriented x 3, equal unlabored respirations, skin warm/dry/pink. 02:30 Reassessment: Patient appears in no apparent distress at this time. Patient and/or jb4 family updated on plan of care and expected duration. Pain level reassessed. Patient is alert, oriented x 3, equal unlabored respirations, skin warm/dry/pink. 02:30 Respiratory: Breath sounds with crackles bilaterally. Breath sounds with wheezes in jb4 right upper lobe and right middle lobe. Vital Signs: 03/12 23:35 BP 77 / 42; Pulse 83; Resp 16 S; Temp 97.1(O); Pulse Ox 95% on 3 lpm NC; ha1 03/13 00:04 Weight 36.74 kg (M); jb4 01:30 BP 104 / 58; Pulse 93; Resp 24; Pulse Ox 96% on 4 lpm NC; jb4 02:30 BP 92 / 46; Pulse 87; Resp 24; Pulse Ox 91% on 4 lpm NC; jb4 03:00 BP 102 / 53; Pulse 85; Resp 24; Pulse Ox 95% on 6 lpm NC; al5 03:15 BP 83 / 43; Pulse 77; Resp 13; Pulse Ox 95% on 6 lpm NC; al5 03:30 BP 103 / 56; Pulse 81; Resp 22; Pulse Ox 91% on 6 lpm NC; al5 03:45 BP 103 / 53; Pulse 83; Resp 24; Pulse Ox 94% on 6 lpm NC; al5 04:00 BP 86 / 51; Pulse 79; Resp 13; Pulse Ox 93% on 6 lpm NC; al5 04:15 BP 83 / 43; Pulse 74; Resp 12; Pulse Ox 93% on 6 lpm NC; al5 04:30 BP 115 / 60; Pulse 80; Resp 25; Pulse Ox 94% on 6 lpm NC; al5 04:45 BP 113 / 60; Pulse 80; Resp 24; Pulse Ox 93% on 6 lpm NC; al5 05:00 BP 116 / 59; Pulse 79; Resp 21; Pulse Ox 92% on 6 lpm NC; al5 05:15 BP 84 / 50; Pulse 72; Resp 14; Pulse Ox 95% on 6 lpm NC; al5 05:30 BP 84 / 45; Pulse 70; Resp 13; Pulse Ox 94% on 6 lpm NC; al5 05:45 BP 147 / 69; Pulse 66; Resp 14; Pulse Ox 98% on 6 lpm NC; al5 06:00 BP 127 / 63; Pulse 78; Resp 19; Pulse Ox 92% on 6 lpm NC; al5 06:15 BP 139 / 75; Pulse 81; Resp 15; Pulse Ox 95% on 6 lpm NC; al5 Patrick Coma Score: 04:12 Eye Response: spontaneous(4). Motor Response: obeys commands(6). Verbal Response: sp4 oriented(5). Total: 15. NIH Stroke Scale Scores: 04:12 NIHSS Score: 0 sp4 ED Course: 03/12 23:35 Patient arrived in ED. vk 23:38 Nixon Keane MD is Attending Physician. sp4 03/13 00:13 BNP Sent. rv1 00:13 Troponin High Sensitivity Sent. rv1 00:13 CRP Sent. rv1 00:13 Influenza Screen (a \T\ B) Sent. rv1 00:13 TSH Sent. rv1 00:13 Blood Culture Adult (2) Sent. rv1 00:13 CBC with Diff Sent. rv1 00:13 CMP Sent. rv1 00:13 Lactate w/ 2H reflex if indic. Sent. rv1 00:13 Protime (+inr) Sent. rv1 00:13 Ptt, Activated Sent. rv1 00:15 Triage completed. ha1 00:16 Chest Single View XRAY In Process Unspecified. EDMS 03:00 Maintain EMS IV. Dressing intact. Good blood return noted. Site clean \T\ dry. Gauge \T\ al 5 site: 18G R forearm. Flushed with 10 mL NS. 03:00 Patient has correct armband on for positive identification. Bed in low position. Call al5 light in reach. Side rails up X2. Provided Education on: plan of care. 03:50 Gretchen Charlton, RN is Primary Nurse. al5 04:10 initiated transfer with Celeste Ugalde\ [facility]. [facility] 04:20 Assisted provider with central line placement. Set up central line tray. Triple lumen al5 line placed in right internal jugular. Line placed by Nixon Keane MD Placement verified by CXR, blood return, Dressed with Tegaderm, Patient tolerated well. Before procedure, did Practitioner(s) obtain informed consent? Yes. Patient \T\ family education about procedure, CLABSI prevention and S/S of infection? Yes. Time-out/Briefing performed prior to start of procedure? Yes. Was handwashing/sanitizing done immediately prior to procedure? Yes. Was patient positioned to in a way to prevent air embolism? Yes. Was procedure site sterilized? Yes, with chlorhexidine. Was the site allowed to dry? Yes. Was local anesthetic and/or sedation utilized? Yes. During the procedure, did the Practitioner(s) maintain a sterile field? Yes. Were unused ports clamped during insertion? Yes. Was a 2nd qualified MD obtained after 3 unsuccessful insertion attempts? No. Was blood aspirated from each lumen? Yes. After the procedure, did the Practitioner(s) clean the site and apply a sterile dressing? Yes. 04:25 pt was declined by [facility] \T\ cap. Trying the [facility] location. [facility] 04:29 XRAY Chest (1 view) In Process Unspecified. EDMS 04:48 pt was accepted to [facility]. Accepting Dr. Antonieta Wolf \T\ [id number]. Celeste Dominguez gave [facility] admin approval at [id number]. nurse to nurse report number [phone]. 05:38 Pt transfer delayed due to patient blood pressure and need for medication. Awaiting [facility] nurse to nurse report once blood pressure stabilized. 06:20 Patient transferred, IV remains in place. al5 Administered Medications: 00:43 Drug: Acetaminophen PO 1000 mg PO once Route: PO; jb4 05:53 Follow up: Response: No adverse reaction al5 00:43 Drug: NS 0.9% IV (30 ml/kg) 30 ml/kg IV at bolus once; Sepsis Protocol; to be given as jb4 a bolus over 90 minutes Route: IV; Rate: bolus; Site: right antecubital; 05:53 Follow up: Response: No adverse reaction; IV Status: Completed infusion; IV Intake: al5 1000ml 00:43 Drug: Rocephin - Rocephin (cefTRIAXone) IVPB 1 grams IVPB once over 30 mins; (mix in 50 jb4 mL NS) Route: IVPB; Infused Over: 30 mins; Site: right antecubital; 05:53 Follow up: Response: No adverse reaction; IV Status: Completed infusion; IV Intake: [id number] 00:43 Drug: Albuterol Inhalation 2.5 mg Inhalation once Route: Inhalation; jb4 00:43 Drug: Ipratropium Inhalation Aerosol 0.5 mg Inhalation once Route: Inhalation; jb4 01:45 Drug: Zithromax IVPB 500 mg IVPB once over 1 hrs; mix in 250 mL NS Route: IVPB; Infused al5 Over: 1 hrs; Site: right antecubital; 05:54 Follow up: Response: No adverse reaction; IV Status: Completed infusion; IV Intake: al5 250ml 01:45 Drug: MethylPrednisoLONE IVP 125 mg IVP once Route: IVP; Site: right antecubital; al5 03:51 Follow up: Response: No adverse reaction al5 02:43 Drug: Dextromethorphan-Guaifenesin PO Liquid 10 mg-100 mg/5 mL 10 ml PO once Route: PO; jb4 03:51 Follow up: Response: No adverse reaction al5 02:59 Drug: NS 0.9% IV 500 ml 500 ml IV at 1 bolus once; to be given as a bolus over 30 jb4 minutes Volume: 500 ml; Route: IV; Rate: 1 bolus; Site: right forearm; 03:51 Follow up: Response: No adverse reaction; IV Status: Completed infusion; IV Intake: al5 500ml 03:00 Not Given (Patient Refused): ondansetron 4 mg IVP once; over 2 minutes jb4 04:24 Drug: D5-NS IV 1000 ml IV at 125 ml/hr continuous Route: IV; Rate: 125 ml/hr; Site: al5 right forearm; 07:18 Follow up: Response: No adverse reaction; IV Status: Infusion continued upon transfer al5 04:24 Drug: Albumin IVPB 25 grams 100 ml IVPB once; (Note: Albumin 25% concentration) Volume: al5 100 ml; Route: IVPB; Site: right jugular; 05:58 Follow up: Response: No adverse reaction; IV Status: Completed infusion; IV Intake: al5 100ml 05:41 Drug: Norepinephrine IV 0.1 mcg/kg/min IV at calculated rate See Administration al5 Instructions; (Standard concentration 4 mg / 250 mL D5W); Recommended max rate 3 mcg/kg/min; Titrate 0.05 mcg/kg/min as often as every 5 minutes to achieve goal (see titration policy); Goal parameter MAP greater than 65 mmHg. Route: IV; Rate: calculated rate; Site: right jugular; 07:18 Follow up: Response: No adverse reaction; IV Status: Infusion continued upon transfer al5 05:47 Drug: Mupirocin Topical Ointment 2 % 1 application Topical once Route: Topical; Site: al5 affected area; 07:18 Follow up: Response: No adverse reaction al5 05:47 Drug: vancoMYCIN IVPB 1 grams IVPB once over 2 hrs Route: IVPB; Infused Over: 2 hrs; al5 Site: right jugular; 07:18 Follow up: Response: No adverse reaction; IV Status: Infusion continued upon transfer al5 06:03 Drug: Albumin IVPB 25 grams 100 ml IVPB once; (Note: Albumin 25% concentration) Volume: al5 100 ml; Route: IVPB; Site: right jugular; 07:18 Follow up: Response: No adverse reaction; IV Status: Infusion continued upon transfer al5 Medication: 03:00 VIS not applicable for this client. al5 Intake: 03:51 IV: 500ml; Total: 500ml. al5 05:53 IV: 1000ml; Total: 1500ml. al5 05:53 IV: 50ml; Total: 1550ml. al5 05:54 IV: 250ml; Total: 1800ml. al5 05:58 IV: 100ml; Total: 1900ml. al5 Outcome: 04:14 ER care complete, transfer ordered by MD. [email or web address] 06:20 Transferred by ground EMS [facility] to [facility], Transfer form al5 completed. 06:20 Condition: stable 06:20 Instructed on the need for transfer, 07:17 Patient left the ED. al5 NIH Stroke Scale - NIH Stroke Score Date: 03/13/2024 Time: 04:12 Total Score = 0 10. Dysarthria (speech clarity - read or repeat words) - 0(Normal) 11. Extinction and Inattention (visual/tactile/auditory/spatial/personal) - 0(No abnormality) 1a. Level of Consciousness (LOC) - 0(Alert) 1b. Level of Consciousness (LOC) (Month \T\ Age) - 0(Both) 1c. LOC Commands (Open \T\ Closes Eyes/Frame Opener) - 0(Both) 2. Best Gaze (Lateral Gaze Paresis) - 0(Normal) 3. Visual Field Loss - 0(No visual loss) 4. Facial Palsy - 0(Normal) 5a. Left Arm: Motor (10-second hold) - 0(No drift) 5b. Right Arm: Motor (10-second hold) - 0(No drift) 6a. Left Leg: Motor (5-second hold - always test supine) - 0(No drift) 6b. Right Leg: Motor (5-second hold - always test supine) - 0(No drift) 7. Limb Ataxia (finger/nose \T\ heel/polk - test with eyes open) - 0(Absent) 8. Sensory Loss (pinprick arms/legs/face) - 0(Normal) 9. Best Language: Aphasia (description/naming/reading) - 0(No aphasia) Initials: sp4 Signatures: Dispatcher [employer] EDMS Bob Posadas RN RN Carmen Valente RN RN ha1 Janet Kebede Sergey, MD MD sp4 Mattie Bennett Vivian vk Langhorst, Amanda, RN RN al5 Corrections: (The following items were deleted from the chart) 04:25 04:24 Albumin IVPB 25 grams 100 ml IVPB in left jugular al5 al5
--- NOTE | 2024-03-13 04:14 | EDPHYS ---
Physician Documentation [facility] Name: Shree Rothman Age: 73 yrs Sex: Female : 1950 Arrival Date: 03/12/2024 Time: 23:24 Bed 2 Private MD: ED Physician Nixon Keane HPI: 03/12 23:41 This 73 yrs old Female presents to ER via Unassigned with complaints of fever sp4 , dyspnea . 03/13 04:07 73-year-old female with history of anxiety, Crohn's disease, lung cancer, intercostal sp4 neuralgia, GERD, history of left lower lung lobectomy, history of chemotherapy in 2020, history of hyponatremia, presents with acute dyspnea fever and generalized weakness. . Patient states she has been feeling unwell for the past 2 days. Patient arrived with EMS for worsening symptoms. Patient on presentation is hypotensive. EMS reported that patient passed out at home and was found hypotensive and received shot of epinephrine IV.. 04:07 Patient's home medications include escitalopram 20 mg daily, hydrocodone 10 every 4 sp4 hours as needed, Zanaflex 4 mg 3 times daily, esomeprazole 40 mg daily, trazodone 150 mg bedtime, gabapentin 400 mg 4 times daily, Forteo 1 unit subcu bedtime, albuterol nebulized as needed, nebulizer, also fentanyl patch. Historical: - Allergies: 00:15 B-12; ha1 00:15 CT contrast; ha1 - PMHx: 00:15 Anxiety; CHRONS; GERD (Lung Cancer); Intercostal neuralgia; Lung Cancer; ha1 - Immunization history:: Reviewed. - Social history:: Patient/guardian denies using tobacco products, Smoking status: unknown. - Infectious Disease History:: Denies. - Family history:: not pertinent. ROS: 04:07 Constitutional: Positive fever, positive chills, positive generalized weakness, sp4 positive shortness of breath and cough 04:07 All other systems are negative, Exam: 04:12 Constitutional: Patient is frail elderly female thin in appearance, pale, hypotensive sp4 on arrival, has generalized weakness. Patient is responsive is GCS of 15 Head/Face: Normocephalic, atraumatic. Eyes: Pupils equal round and reactive to light, extra-ocular motions intact. Lids and lashes normal. Conjunctiva and sclera are not injected. Cornea within normal limits. Periorbital areas with no swelling, redness, or edema. ENT: Nares patent. No nasal discharge, no septal abnormalities noted. Tympanic membranes are normal and external auditory canals are clear. Oropharynx with no redness, swelling, or masses, exudates, or evidence of obstruction, uvula midline. Mucous membranes moist. Neck: Trachea midline, no thyromegaly or masses palpated, and no cervical lymphadenopathy. Supple, full range of motion without nuchal rigidity, or vertebral point tenderness. Chest/axilla: Normal chest wall appearance and motion. Nontender with no deformity. No lesions are appreciated. Cardiovascular: Regular rate and rhythm with a normal S1 and S2. No gallops, murmurs, or rubs. Normal PMI, no JVD. No pulse deficits. Respiratory: Lungs have equal breath sounds bilaterally, clear to auscultation and percussion. No rales, rhonchi or wheezes noted. No increased work of breathing, no retractions or nasal flaring. Abdomen/GI: Soft, with normal bowel sounds. No distension or tympany. No guarding or rebound. No evidence of tenderness throughout. Back: No spinal tenderness. No costovertebral tenderness. Female : Normal external genitalia. Skin: Warm, dry with normal turgor. Normal color with no rashes, no lesions, and no evidence of cellulitis. MS/ Extremity: Pulses equal, no cyanosis. Neurovascular intact. Full, normal range of motion. Patient has signs of moderate physical deconditioning and muscular atrophy Neuro: Awake and alert, GCS 15, oriented to person, place, time, and situation. Cranial nerves II-XII grossly intact. Motor strength 5/5 in all extremities. Sensory grossly intact. Vital Signs: 03/12 23:35 BP 77 / 42; Pulse 83; Resp 16 S; Temp 97.1(O); Pulse Ox 95% on 3 lpm NC; ha1 03/13 00:04 Weight 36.74 kg (M); jb4 01:30 BP 104 / 58; Pulse 93; Resp 24; Pulse Ox 96% on 4 lpm NC; jb4 02:30 BP 92 / 46; Pulse 87; Resp 24; Pulse Ox 91% on 4 lpm NC; jb4 03:00 BP 102 / 53; Pulse 85; Resp 24; Pulse Ox 95% on 6 lpm NC; al5 03:15 BP 83 / 43; Pulse 77; Resp 13; Pulse Ox 95% on 6 lpm NC; al5 03:30 BP 103 / 56; Pulse 81; Resp 22; Pulse Ox 91% on 6 lpm NC; al5 03:45 BP 103 / 53; Pulse 83; Resp 24; Pulse Ox 94% on 6 lpm NC; al5 04:00 BP 86 / 51; Pulse 79; Resp 13; Pulse Ox 93% on 6 lpm NC; al5 04:15 BP 83 / 43; Pulse 74; Resp 12; Pulse Ox 93% on 6 lpm NC; al5 04:30 BP 115 / 60; Pulse 80; Resp 25; Pulse Ox 94% on 6 lpm NC; al5 04:45 BP 113 / 60; Pulse 80; Resp 24; Pulse Ox 93% on 6 lpm NC; al5 05:00 BP 116 / 59; Pulse 79; Resp 21; Pulse Ox 92% on 6 lpm NC; al5 05:15 BP 84 / 50; Pulse 72; Resp 14; Pulse Ox 95% on 6 lpm NC; al5 05:30 BP 84 / 45; Pulse 70; Resp 13; Pulse Ox 94% on 6 lpm NC; al5 05:45 BP 147 / 69; Pulse 66; Resp 14; Pulse Ox 98% on 6 lpm NC; al5 06:00 BP 127 / 63; Pulse 78; Resp 19; Pulse Ox 92% on 6 lpm NC; al5 06:15 BP 139 / 75; Pulse 81; Resp 15; Pulse Ox 95% on 6 lpm NC; al5 NIH Stroke Scale Scores: 04:12 NIHSS Score: 0 sp4 Beltrami Coma Score: 04:12 Eye Response: spontaneous(4). Motor Response: obeys commands(6). Verbal Response: sp4 oriented(5). Total: 15. Procedures: 03:55 Central Line: the site was prepped with Betadine, in sterile fashion, a triple lumen sp4 catheter was inserted, in the right internal jugular vein, in 1 attempts. placement was verified, by CXR, by blood return, Ultrasound-guided central line, the site was dressed with 4X4s, Tegaderm, using sterile technique, the patient tolerated the procedure, well, Central line placed for resuscitation secondary to persistent hypotension. MDM: 03/12 23:40 Medical Screening Exam initiated sp4 03/13 02:15 ED course: EXAM: XR Chest, 1 View CLINICAL HISTORY: The patient is 73 years old and is sp4 Female; CHEST PAIN TECHNIQUE: Frontal view of the chest. COMPARISON: XR Chest dated October 25 2023 FINDINGS: LUNGS: The lungs are hyperinflated with coarse interstitial markings and diffuse interstitial opacities. Chronic changes of the left hemithorax with scarring in the left midlung and postsurgical change is noted. No consolidation. PLEURAL SPACE: Blunting of the left costophrenic angle with apical pleural capping is present, stable. No pneumothorax. HEART: Unremarkable. No cardiomegaly. MEDIASTINUM: Unremarkable. Normal mediastinal contour. BONES/JOINTS: Postsurgical change of the left shoulder is noted. Degenerative changes spine is present. No acute fracture. UPPER ABDOMEN: Unremarkable as visualized. IMPRESSION: 1. Chronic changes of the left lung, grossly stable from prior exam. 2. Mild diffuse interstitial opacities superimposed on chronic lung changes which may be secondary to mild infectious versus edematous process. Electronically signed by: Ana Ferrari MD 03/13/2024 12:33 AM. 04:15 Differential Diagnosis altered mental status, sepsis, flu, septic shock . Data sp4 reviewed: vital signs, nurses notes, EMS record, old medical records, lab test result(s), EKG, radiologic studies. Consideration of Admission/Observation Escalation of care including admission/observation considered. ED course: EXAM: XR Chest, 1 View CLINICAL HISTORY: The patient is 73 years old and is Female; CHEST PAIN TECHNIQUE: Frontal view of the chest. COMPARISON: XR Chest dated October 25 2023 FINDINGS: LUNGS: The lungs are hyperinflated with coarse interstitial markings and diffuse interstitial opacities. Chronic changes of the left hemithorax with scarring in the left midlung and postsurgical change is noted. No consolidation. PLEURAL SPACE: Blunting of the left costophrenic angle with apical pleural capping is present, stable. No pneumothorax. HEART: Unremarkable. No cardiomegaly. MEDIASTINUM: Unremarkable. Normal mediastinal contour. BONES/JOINTS: Postsurgical change of the left shoulder is noted. Degenerative changes spine is present. No acute fracture. UPPER ABDOMEN: Unremarkable as visualized. IMPRESSION: 1. Chronic changes of the left lung, grossly stable from prior exam. 2. Mild diffuse interstitial opacities superimposed on chronic lung changes which may be secondary to mild infectious versus edematous process. . 04:43 ED course: Patient was accepted at [facility] ICU by Dr. Wolf. [facility] 03/12 23:39 Order name: Blood Culture Adult (2) 4 03/12 23:39 Order name: CBC with Diff; Complete Time: 02:14 [facility] 03/12 23:39 Order name: CMP; Complete Time: 02:14 [facility] 03/12 23:39 Order name: Lactate w/ 2H reflex if indic.; Complete Time: 02:14 [facility] 03/12 23:39 Order name: Protime (+inr); Complete Time: 02:14 [facility] 03/12 23:39 Order name: Ptt, Activated; Complete Time: 02:14 [facility] 03/12 23:40 Order name: TSH; Complete Time: 02:14 [facility] 03/12 23:40 Order name: Influenza Screen (a \T\ B); Complete Time: 02:14 [facility] 03/12 23:40 Order name: CRP; Complete Time: 02:14 [facility] 03/12 23:40 Order name: Troponin High Sensitivity; Complete Time: 02:14 [facility] 03/12 23:40 Order name: BNP; Complete Time: 02:14 [facility] 03/13 00:53 Order name: CBC Smear Scan; Complete Time: 02:14 [facility] 03/12 23:39 Order name: Chest Single View XRAY 4 03/13 03:50 Order name: XRAY Chest (1 view) al5 03/12 23:39 Order name: EKG; Complete Time: 23:39 [facility] 03/12 23:39 Order name: Accucheck; Complete Time: 02:16 [facility] 03/12 23:39 Order name: Cardiac monitoring; Complete Time: 00:13 [facility] 03/12 23:39 Order name: EKG - Nurse/Tech; Complete Time: 02:16 [facility] 03/12 23:39 Order name: IV Saline Lock - Large Bore; Complete Time: 00:13 4 03/12 23:39 Order name: Labs collected and sent; Complete Time: 00:13 [facility] 03/12 23:39 Order name: O2 Per Protocol; Complete Time: 00:13 [facility] 03/12 23:39 Order name: O2 Sat Monitoring; Complete Time: 00:13 sp4 03/12 23:39 Order name: Vital Signs; Complete Time: 02:16 sp4 03/13 03:55 Order name: Central Line Dressing Kit; Complete Time: 04:23 sp4 03/13 03:55 Order name: Central Line Kit; Complete Time: 04:23 sp4 03/13 03:55 Order name: Chlorhexidine prep; Complete Time: 04:23 sp4 03/13 03:55 Order name: Consent for central line completed; Complete Time: 05:07 sp4 03/13 03:55 Order name: Line Caps x3; Complete Time: 04:24 sp4 03/13 03:55 Order name: NS Flushes x3; Complete Time: 04:24 sp4 03/13 03:55 Order name: Sterile Gloves; Complete Time: 04:24 sp4 03/13 03:55 Order name: Sterile Probe Cover; Complete Time: 04:24 sp4 Administered Medications: 00:43 Drug: Acetaminophen PO 1000 mg PO once Route: PO; jb4 05:53 Follow up: Response: No adverse reaction al5 00:43 Drug: NS 0.9% IV (30 ml/kg) 30 ml/kg IV at bolus once; Sepsis Protocol; to be given as jb4 a bolus over 90 minutes Route: IV; Rate: bolus; Site: right antecubital; 05:53 Follow up: Response: No adverse reaction; IV Status: Completed infusion; IV Intake: al5 1000ml 00:43 Drug: Rocephin - Rocephin (cefTRIAXone) IVPB 1 grams IVPB once over 30 mins; (mix in 50 jb4 mL NS) Route: IVPB; Infused Over: 30 mins; Site: right antecubital; 05:53 Follow up: Response: No adverse reaction; IV Status: Completed infusion; IV Intake: [id number] 00:43 Drug: Albuterol Inhalation 2.5 mg Inhalation once Route: Inhalation; jb4 00:43 Drug: Ipratropium Inhalation Aerosol 0.5 mg Inhalation once Route: Inhalation; jb4 01:45 Drug: Zithromax IVPB 500 mg IVPB once over 1 hrs; mix in 250 mL NS Route: IVPB; Infused al5 Over: 1 hrs; Site: right antecubital; 05:54 Follow up: Response: No adverse reaction; IV Status: Completed infusion; IV Intake: al5 250ml 01:45 Drug: MethylPrednisoLONE IVP 125 mg IVP once Route: IVP; Site: right antecubital; al5 03:51 Follow up: Response: No adverse reaction al5 02:43 Drug: Dextromethorphan-Guaifenesin PO Liquid 10 mg-100 mg/5 mL 10 ml PO once Route: PO; jb4 03:51 Follow up: Response: No adverse reaction al5 02:59 Drug: NS 0.9% IV 500 ml 500 ml IV at 1 bolus once; to be given as a bolus over 30 jb4 minutes Volume: 500 ml; Route: IV; Rate: 1 bolus; Site: right forearm; 03:51 Follow up: Response: No adverse reaction; IV Status: Completed infusion; IV Intake: al5 500ml 03:00 Not Given (Patient Refused): ondansetron 4 mg IVP once; over 2 minutes jb4 04:24 Drug: D5-NS IV 1000 ml IV at 125 ml/hr continuous Route: IV; Rate: 125 ml/hr; Site: al5 right forearm; 07:18 Follow up: Response: No adverse reaction; IV Status: Infusion continued upon transfer al5 04:24 Drug: Albumin IVPB 25 grams 100 ml IVPB once; (Note: Albumin 25% concentration) Volume: al5 100 ml; Route: IVPB; Site: right jugular; 05:58 Follow up: Response: No adverse reaction; IV Status: Completed infusion; IV Intake: al5 100ml 05:41 Drug: Norepinephrine IV 0.1 mcg/kg/min IV at calculated rate See Administration al5 Instructions; (Standard concentration 4 mg / 250 mL D5W); Recommended max rate 3 mcg/kg/min; Titrate 0.05 mcg/kg/min as often as every 5 minutes to achieve goal (see titration policy); Goal parameter MAP greater than 65 mmHg. Route: IV; Rate: calculated rate; Site: right jugular; 07:18 Follow up: Response: No adverse reaction; IV Status: Infusion continued upon transfer al5 05:47 Drug: Mupirocin Topical Ointment 2 % 1 application Topical once Route: Topical; Site: al5 affected area; 07:18 Follow up: Response: No adverse reaction al5 05:47 Drug: vancoMYCIN IVPB 1 grams IVPB once over 2 hrs Route: IVPB; Infused Over: 2 hrs; al5 Site: right jugular; 07:18 Follow up: Response: No adverse reaction; IV Status: Infusion continued upon transfer al5 06:03 Drug: Albumin IVPB 25 grams 100 ml IVPB once; (Note: Albumin 25% concentration) Volume: al5 100 ml; Route: IVPB; Site: right jugular; 07:18 Follow up: Response: No adverse reaction; IV Status: Infusion continued upon transfer al5 Disposition Summary: 03/13/24 04:14 Transfer Ordered Notes: Transfer Location: Other Acute Care Facility sp4 Reason: Higher level of care sp4 Condition: Serious sp4 Problem: new sp4 Symptoms: have improved sp4 Accepting Physician: Accepting (03/13/24 07:17) al5 Diagnosis - Severe sepsis with septic shock sp4 - Hypoxemia sp4 - Syncope and collapse, hyponatremia, hypoxemia, COPD exacerbation, left pleural sp4 effusion Forms: - Medication Reconciliation Form sp4 - SBAR form sp4 Critical care time excluding procedures: 04:13 Critical care time: Bedside Care: 36 minutes, Consultation: 12 minutes, Family sp4 Intervention: 12 minutes. Total time: 60 minutes NIH Stroke Scale - NIH Stroke Score Date: 03/13/2024 Time: 04:12 Total Score = 0 10. Dysarthria (speech clarity - read or repeat words) - 0(Normal) 11. Extinction and Inattention (visual/tactile/auditory/spatial/personal) - 0(No abnormality) 1a. Level of Consciousness (LOC) - 0(Alert) 1b. Level of Consciousness (LOC) (Month \T\ Age) - 0(Both) 1c. LOC Commands (Open \T\ Closes Eyes/Hog Driver) - 0(Both) 2. Best Gaze (Lateral Gaze Paresis) - 0(Normal) 3. Visual Field Loss - 0(No visual loss) 4. Facial Palsy - 0(Normal) 5a. Left Arm: Motor (10-second hold) - 0(No drift) 5b. Right Arm: Motor (10-second hold) - 0(No drift) 6a. Left Leg: Motor (5-second hold - always test supine) - 0(No drift) 6b. Right Leg: Motor (5-second hold - always test supine) - 0(No drift) 7. Limb Ataxia (finger/nose \T\ heel/polk - test with eyes open) - 0(Absent) 8. Sensory Loss (pinprick arms/legs/face) - 0(Normal) 9. Best Language: Aphasia (description/naming/reading) - 0(No aphasia) Initials: sp4 Signatures: Dispatcher [employer] EDMS Bob Posadas, RN RN jb4 Carmen Whitaker RN RN ha1 Nixon Keane MD MD sp4 Gretchen Charlton RN RN al5 Corrections: (The following items were deleted from the chart) 03/12 23:40 23:40 THYROID STIMULAT HORMONE+C.LAB.BRZ ordered. EDMS EDMS 23:40 23:40 Influenza Screen (A \T\ B)+BA.LAB.BRZ ordered. EDMS EDMS 23:40 23:40 C-REACTIVE PROTEIN+C.LAB.BRZ ordered. EDMS EDMS 23:40 23:40 Troponin High Sensitivity+C.LAB.BRZ ordered. EDMS EDMS 23:40 23:40 PROBNP+C.LAB.BRZ ordered. EDMS EDMS 03/13 03:51 03:51 Chest Single View+RAD.RAD.BRZ ordered. EDMS EDMS 04:11 04:07 Patient states she has been feeling unwell for the past 2 days. Patient sp4 arrived with EMS for worsening symptoms. Patient on presentation is hypotensive.. sp4 07:17 04:14 Accepting MD [email or web address] al5
[2024-03-13] MEDS ORDERED: Mupirocin NASAL 2 APPL/1 GM TUBE NAS ONE (05:34)
[2024-03-13] MEDS ORDERED: NOREPINEPHRINE BITARTRATE/D5W 4 MG/250 ML KIT IV ONE (05:34)
[2024-03-13] MEDS ORDERED: VANCOMYCIN 1 GM/VIAL ONE (05:34)
--- NOTE | 2024-03-13 06:34 | RAD REPORT ---
EXAM: XR Chest, 1 View CLINICAL HISTORY: The patient is 73 years old and is Female; Placement of central line. TECHNIQUE: Single view of the chest. COMPARISON: XR Chest 03/13/2024 12:09:09 AM. FINDINGS: Lungs: Hazy opacification in the right lung which may be secondary to a layering effusion and/or groundglass opacities from edema or atypical infection. Patient is supine. Left lower lobe atelectasis or consolidation with small left pleural effusion or pleural thic kening, stable. Pleural space: No pneumothorax. Left apical pleural thickening. Heart: No cardiomegaly. Mediastinum: The mediastinal contours are altered due to patient rotation. Bones/joints: The bones and joints are unchanged as visualized. Tubes, lines and devices: Right IJ line terminates at the SVC/RA junction. Upper abdomen: No free air in the visualized upper abdomen. IMPRESSION: 1. Right IJ line terminates at the SVC/RA junction. No definite pneumothorax. 2. Hazy opacification in the right lung which may be secondary to a layering effusion and/or ground glass opacities from edema or atypical infection. Patient is supine. 3. Left lower lobe atelectasis or consolidation with small left pleural effusion or pleural thicken ing, stable. Electronically signed by: Mita Jose MD 03/13/2024 05:00 AM [facility] [place] Due to temporary technical issues with the PACS/[employer] reporting system, reports are being nawaf d by the in-house radiologist without review as a courtesy to ensure prompt reporting the interpreting radiologist is fully responsible for the content of the report. Transcribed Date/Time: 03/13/2024 6:33 AM
--- NOTE | 2024-03-13 06:36 | RAD REPORT ---
EXAM: XR Chest, 1 View CLINICAL HISTORY: The patient is 73 years old and is Female; CHEST PAIN TECHNIQUE: Frontal view of the chest. COMPARISON: XR Chest dated October 25 2023 FINDINGS: LUNGS: The lungs are hyperinflated with coarse interstitial markings and diffuse interstitial opa cities. Chronic changes of the left hemithorax with scarring in the left midlung and postsurgical change is noted. No consolidation. PLEURAL SPACE: Blunting of the left costophrenic angle with apical pleural capping is present, st able. No pneumothorax. HEART: Unremarkable. No cardiomegaly. MEDIASTINUM: Unremarkable. Normal mediastinal contour. BONES/JOINTS: Postsurgical change of the left shoulder is noted. Degenerative changes spine is pr esent. No acute fracture. UPPER ABDOMEN: Unremarkable as visualized. IMPRESSION: 1. Chronic changes of the left lung, grossly stable from prior exam. 2. Mild diffuse interstitial opacities superimposed on chronic lung changes which may be secondary to mild infectious versus edematous process. Electronically signed by: Ana Ferrari MD 03/13/2024 12:33 AM [facility] Due to temporary technical issues with the PACS/[employer] reporting system, reports are being nawaf d by the in-house radiologist without review as a courtesy to ensure prompt reporting the interpreting radiologist is fully responsible for the content of the report. Transcribed Date/Time: 03/13/2024 6:36 AM
[2024-03-13 07:30] VITALS: TEMP 97.1
[2024-03-13 07:57] VITALS: BP 139/75; O2SAT 95
== END 2024-03-13 07:17 ==
LOC: ER 23:24
DX: J44.1 Chronic obstructive pulmonary disease with (acute) exacerbation (principal); J90 Pleural effusion, not elsewhere classified; R65.21 Severe sepsis with septic shock; E87.1 Hypo-osmolality and hyponatremia; R09.02 Hypoxemia; R55 Syncope and collapse
CPT/HCPCS: 87040 ×2; 85025; 36415; 85610; 83605; 85730; 84443; 84484; 80053; 83880; 86140; 87804 ×2; 71045 ×2; 99285; 36556; J7613; J7644; J2919; P9047; J7042; J7050 ×2; J7040; J7030; J0696; J2405